=== PATIENT | female | born 1950 | race Caucasian/White ===

== ENCOUNTER → 2016-05-29 | Day surgery (SDC) | payer OTHER ==
--- NOTE | 2016-05-23 23:33 | CR ---
DATE OF CONSULTATION: 05/18/2016 REFERRING PHYSICIAN: Dr. Thrasher Thank you for asking me to see Ms. Charmaine Lunsford in consultation prior to her left knee arthroscopy scheduled tentatively for 05/29/[address] [facility] ([facility]). Ms. Lunsford is, as you know, a 65-year-old female, past medical history type 2 diabetes, hypertension, hyperlipidemia, who was been plagued by disabling left knee pain for nearly a year. Patient has had increased difficulties managing her weight and blood sugars related to her inactivity from her knee pain. Patient reports she has been in her usual state of health. She denies any fevers or chills, chest pain, or shortness of breath. Patient has type 2 diabetes. She is compliant with her insulin. Reports morning blood sugars in general are good as long as she is compliant with her diet and insulin. Patient has hypertension. Denies chest pain, palpitations, syncope, presyncope. Patient has gastroesophageal reflux disease (GERD) and is controlled on pantoprazole with little breakthrough dyspepsia. Patient has depression and is controlled on venlafaxine. Patient has obstructive sleep apnea (EULALIA) but has been noncompliant with her continuous positive airway pressure (CPAP). REVIEW OF SYSTEMS: Otherwise, negative. PAST MEDICAL HISTORY: 1. GERD. 2. Hyperlipidemia. 3. Hypertension. 4. Type 2 diabetes. 5. Obesity. 6. Hiatal hernia/GERD. 7. Oophorectomy secondary large ovarian cyst. 8. Osteoarthritis (OA)/degenerative joint disease (DJD) of the cervical (C) spine status post surgical intervention 12/2009. 9. Irritable bowel syndrome (IBS). 10. Sepsis 2007 secondary to pyelonephritis/nephrolithiasis. 11. EKG changes 12/2008 with negative stress echocardiogram and an adenosine thallium, followed by repeat stress test 03/2011 showing no inducible disease. 13. Urticaria 2008. 14. Colonic tubular adenoma at 10/2008, last colonoscopy 11/08/2011. Recommended a repeat in 5 years. DRUG ALLERGIES: Are BACTRIM and KEFLEX, both of which cause a rash. MEDICATIONS: Are: - alogliptin/metformin 12.07/999 mg one by mouth twice a day - amlodipine 5 mg by mouth nightly - baby aspirin 81 mg by mouth daily - atorvastatin 20 mg by mouth nightly - furosemide 20 mg two by mouth twice a day - Lantus 80 units subcutaneously twice a day - losartan 100 mg one by mouth every morning - NovoLog 40 units before supper, increased based on diet and activity - pantoprazole 40 mg by mouth twice a day - venlafaxine 75 mg by mouth daily - Ventolin two puffs four times a day as needed SOCIAL HISTORY: Happily . Quit smoking 2000. No alcohol. FAMILY HISTORY: Father had esophageal cancer in his 80s. Mother had Hodgkin's disease in her 30s. A brother hypertension. A sister diabetes and kidney disease. PHYSICAL EXAM: VITAL SIGNS: Weight 242 with a body mass index (BMI) of 39. Her oxygen saturation at rest is 99%. Blood pressure 170/92 with a repeat 158/80. Her heart rate is 77. HEENT EXAM: Head is normocephalic. She wears eyeglasses. Pupils are equal, reactive to light. Extraocular movements are intact. Tympanic membranes slightly dull; some bilateral cerumen but no occlusion. Tongue is midline. Posterior pharynx without inflammation. NECK: Is supple. No thyromegaly, jugular venous distention (JVD), or carotid bruits. RESPIRATORY: Clear to auscultation. Resonant to percussion. BREAST EXAM: Deferred. CARDIOVASCULAR: Regular rate, rhythm. Barely audible systolic murmur. ABDOMEN: Normoactive bowel sounds. Soft, nontender. No hepatosplenomegaly. EXTREMITIES: Trace pretibial edema. NEUROLOGIC: Alert and oriented. Cranial nerves II-XII are intact. LABORATORY DATA: EKG today, 05/18/2016, shows normal sinus rhythm, heart rate of 77, axis of 41 degrees. Normal MO, QRS, QTc interval. Some nonspecific T wave changes, which are unchanged compared to previous EKGs. No atrial or ventricular hypertrophy. Laboratory data done in my office 05/18/2016 shows a normal CBC. Med profile with a GFR of 56, a sugar of 113, a magnesium of 1.7, an A1c of 7.3, and normal ALT. TSH was normal 03/08/2016, as were lipids with a total cholesterol 135 and LDL of 70. IMPRESSION: Ms. Charmaine Lunsford, 65-year-old female with multiple cardiovascular risk factors, including type 2 diabetes, hypertension, hyperlipidemia, age, has no signs or symptoms indicative of cardiovascular ischemia and is at low risk for cardiovascular complications from the proposed surgical intervention, which can be further minimized by the followin. Type 2 diabetes. Patient will hold her oral hypoglycemics for 2 days prior to surgery. She will take 60 units instead of 80 units the evening prior to surgery and no insulin the morning of surgery. 2. Hypertension. Patient will hold diuretic morning of surgery. She will take her losartan as usual, as well as the amlodipine the evening prior to surgery. 3. Hyperlipidemia. She will stay on atorvastatin the evening prior to surgery. She will hold aspirin for 5 days prior to surgery. 4. Depression. Patient will take her venlafaxine morning of surgery. 5. Obstructive sleep apnea. Patient is noncompliant with her CPAP. Compliance is encouraged. 6. Gastroesophageal reflux disease Patient will take her pantoprazole the morning of surgery. 7. Osteoarthritis/degenerative joint disease. No nonsteroidal anti-inflammatory drugs (NSAIDs). I have approved the use of Tylenol. Thank you very much for this consultation. Please call with any questions or concerns.
[~2016-05-29] VITALS: Ht 170.2 cm; Wt 108.9 kg
[~2016-05-29] MED LIST: /LANS30GR; ADVIL; AMLO2.5T OR; AMLO5TAB2 PO; ASPI81TA31 OR; ATOR1TAB21 PO; CHLOROPROCAINE 2 % INJ PRES.FREE 20 ML VIAL (J2400) As Ordered ONE; CIPR500T19; CLINDAMYCIN 600 MG in APPROPRIATE DILUENT 1 EA IV ONE; CLOT1CRE71 TOP; COLA100C2 OR; FLAG500T; FURO20TA2; FURO20TA2 PO; GLUC1000; HCTZ; HYDR25TA6; HYDR25TA6 OR; IBUP600T OR; INSUH10VL SC; INSULADS INJ; INSULANT; K-LO20PO; KOMBIGLYZE; LEVA500T; LIDOCAINE 2% INJ 100 MG/5 ML SDV (FOR ANES.) As Ordered ONE; LIPI20TA OR; LOSA100T36 PO; LR 1,000 ML IV SCH; MAGN250T OR; MAVI4TAB; METO10TA2; METO25TA2; METO5TAB2; METOCLOPRAMIDE INJ 10MG/2ML VIAL (J2765) IV PRN; MIDAZOLAM INJ 2 MG/2 ML VIAL (J2250) As Ordered ONE; MILKSUS OR; MIRALEX OR; MORPHINE 4 MG/ML 1ML SYRINGE IV PRN; NORCO, ANEXSIA 5/325MG TABLET (HYDROcodone/ACETAMINOPHEN) PO PRN; ONDANSETRON 4MG/2ML VIAL (J2405) IV PRN; PAIN; PANT40TA2 PO; PERC5TAB8 OR; PERC7.5T8 OR; PREG50CA OR; PREV30TA; PRIN10TA; PROPOFOL 500 MG/50 ML VIAL As Ordered ONE; ROPIvacaine 0.5% 30 ML INJECTION (J2795) As Ordered ONE; ROPIvacaine 0.5% 30 ML INJECTION (J2795) XX ONE; ROSI2TA; ROSI4TA; SLOWTAB OR; TOPROL XL; TRIAMCINOLONE ACETONIDE SUSP 40 MG/ML VIAL (J3301) As Ordered ONE; VENL1TAB35 PO; VENL75TA2; ZOCO40TA; ZOCO80TA; [UNRECOGNIZED DRUG - OTHER]; [UNRECOGNIZED DRUG - OTHER]; fentaNYL 100 MCG/2 ML INJECTION (J3010) As Ordered ONE; fentaNYL 100 MCG/2 ML INJECTION (J3010) IV PRN; levemir SC
[2016-05-29 16:10] VITALS: BP 166/79
--- NOTE | 2016-05-29 17:53 | RO ---
DATE OF PROCEDURE: 05/29/2016 PREPROCEDURE DIAGNOSIS: Left knee lateral meniscus tear with degenerative arthritis. POSTPROCEDURE DIAGNOSIS: Left knee lateral meniscus tear with degenerative arthritis. PROCEDURES: 1. Left knee partial lateral meniscectomy. 2. Left knee chondroplasty of patella. 3. Left knee chondroplasty of the medial femoral condyle. SURGEON: Norberto Thrasher MD ELECTRONICS LEAD: ANESTHESIA: Spinal. COMPLICATIONS: None. ESTIMATED BLOOD LOSS: SPECIMENS: FINDINGS: She had extensive grade 3 chondromalacia of all three compartments of her knee, but there was extensively torn lateral meniscus. The medial meniscus was relatively well maintained. Anterior cruciate ligament (ACL) and posterior cruciate ligament (PCL) were intact. There was a significant amount of synovitis, especially in the suprapatellar pouch and in the anterior compartment. DESCRIPTION OF PROCEDURE: After antibiotics were given intravenously preoperatively and a successful spinal anesthetic was induced, tourniquet was placed on the left upper thigh and not inflated. The left lower extremity was then prepped and draped in the usual sterile fashion. Then, the leg was elevated. Then, after appropriate time-out, the tourniquet was inflated. Insufflation portal was established superomedially. Scope was introduced anterolaterally, and working port was anteromedial, and introduced the arthroscope to explore the joint. Findings showed that there was extensive chondromalacia of the patella and the trochlea, the lateral tibia and lateral femoral condyles, as well as the medial tibial and medial femoral condyles. ACL and PCL were intact. The lateral meniscus was extensively torn. The medial meniscus was not. I debrided the torn portion of the lateral meniscus with a 4.0 curved shaver back to good stable rim, and I did as much of a chondroplasty of the lateral femoral condyle as possible to help smooth off the loose pieces of articular cartilage that had were fragmenting. There was extensive amount of anterior interval synovitis and infrapatellar plica, which was excised. A photograph was taken of the ACL. In the medial compartment, there was extensive chondromalacia of the medial femoral condyle with some loose pieces of articular cartilage, which was debrided with a chondroplasty with a 4.0 shaver, trying to smooth off as most of the fragmenting pieces of cartilage as I could. Then, in the suprapatellar pouch, a patellar chondroplasty was performed with the shaver, as well, and some of the synovitis was debrided, but I did not find any other arthroscopic retrievable pathology at this point, so I copiously irrigated out the joint and then instilled ropivacaine with 1 mL of Kenalog 40; and then, the arthroscopy was removed, and wounds were covered with Adaptic dry sterile bulky dressing, tourniquet was released, and then she was transferred to the recovery room in stable condition. There were no intraoperative complications.
== END ==
LOC: M SDC 10:49
PROVIDERS: ATTEND Orthopaedic Surgery
DX: M23.201 Derangement of unspecified lateral meniscus due to old tear or injury, left knee (principal); M17.12 Unilateral primary osteoarthritis, left knee; I12.9 Hypertensive chronic kidney disease with stage 1 through stage 4 chronic kidney disease, or unspecified chronic kidney disease; E11.22 Type 2 diabetes mellitus with diabetic chronic kidney disease; E78.5 Hyperlipidemia, unspecified; G47.33 Obstructive sleep apnea (adult) (pediatric); K21.9 Gastro-esophageal reflux disease without esophagitis; F32.9 Major depressive disorder, single episode, unspecified; K44.9 Diaphragmatic hernia without obstruction or gangrene; N18.9 Chronic kidney disease, unspecified; E66.9 Obesity, unspecified; Z88.1 Allergy status to other antibiotic agents; Z88.2 Allergy status to sulfonamides; Z87.891 Personal history of nicotine dependence; Z79.899 Other long term (current) drug therapy; Z79.82 Long term (current) use of aspirin; Z79.84 Long term (current) use of oral hypoglycemic drugs; Z79.4 Long term (current) use of insulin
CPT/HCPCS: 29875; 29881; J2250; J2400; J2795; J3010; J3301

== ENCOUNTER 2017-11-05 19:14 | Inpatient (IN) | payer MEDICARE, OTHER ==
[2017-11-05] MEDS: ACETAMINOPHEN 325 MG TAB PO (21:05)
[2017-11-05 21:58] LABS: BASO % 0.1 % (0.0-1.0); HEMATOCRIT 41.8 % (36.0-47.0); HEMOGLOBIN 13.7 g/dl (12.0-15.5); IMMATURE GRANULOCYTE % 0.5 % (0-3.0); LYMPH % 4.8 % (24.0-44.0); MEAN CORPUSCULAR HEMOGLOBIN 29.1 pg (27.0-33.0); MEAN CORPUSCULAR HGB CONC 32.8 g/dl (32.0-36.5); MEAN CORPUSCULAR VOLUME 88.7 fl (80.0-96.0); MONO # 0.9 10^3/uL (0.0-0.8); MONO % 4.2 % (0.0-5.0); NEUTROPHILS # 18.1 10^3/uL (1.8-7.7); NEUTROPHILS % 90.4 % (36.0-66.0); PLATELET COUNT, AUTOMATED 188 10^3/uL (150-450); RED BLOOD COUNT 4.71 10^6/uL (4.00-5.40); RED CELL DISTRIBUTION WIDTH 13.7 % (11.5-14.5); WHITE BLOOD COUNT 20.1 10^3/uL (4.0-10.0)
[2017-11-05 22:15] LABS: ERYTHROCYTE SEDIMENTATION RATE 10 mm/hr (0-30)
[2017-11-05 22:17] LABS: ALBUMIN 3.6 GM/DL (3.2-5.2); ALBUMIN/GLOBULIN RATIO 1.03 (1.00-1.93); ALKALINE PHOSPHATASE 63 U/L (45-117); ALT/SGPT 19 U/L (12-78); ANION GAP 9 MEQ/L (8-16); AST/SGOT 10 U/L (7-37); BILIRUBIN,DIRECT 0.2 MG/DL (0.0-0.2); BLOOD UREA NITROGEN 22 MG/DL (7-18); C REACTIVE PROTEIN QUANTITATIV 2.49 MG/DL (0.00-0.30); CALCIUM LEVEL 8.9 MG/DL (8.8-10.2); CARBON DIOXIDE LEVEL 28 MEQ/L (21-32); CHLORIDE LEVEL 104 MEQ/L (98-107); CREATININE FOR GFR 1.38 MG/DL (0.55-1.30); GLOMERULAR FILTRATION RATE 40.8 (>45); GLUCOSE, FASTING 120 MG/DL (70-100); POTASSIUM SERUM 3.8 MEQ/L (3.5-5.1); SODIUM LEVEL 141 MEQ/L (136-145); TOTAL PROTEIN 7.1 GM/DL (6.4-8.2)
[2017-11-05] MEDS: NS 1,000 ML IV (22:30)
[2017-11-05] MEDS: CLINDAMYCIN 600 MG in APPROPRIATE DILUENT 1 EA IV (23:34)
[2017-11-06] MEDS: NS 500 ML IV (02:28)
[2017-11-06] MEDS ORDERED: PANTOPRAZOLE 40MG TAB (PROTONIX) PO (02:30)
[2017-11-06] MEDS ORDERED: DEXTROSE 50% 50 ML SYRINGE IV (02:30)
[2017-11-06] MEDS ORDERED: GLUCOSE 4 GM CHEW TABLET PO (02:30)
[2017-11-06] MEDS ORDERED: GLUCAGON FOR INJ 1 MG VIAL (J1610) SC (02:30)
[2017-11-06] MEDS: AMPICILLIN SOD/SULBACTAM SOD 3 GM in D5W MINI-BAG PLUS 100 ML IV ×4 (03:59→21:16)
[2017-11-06] MEDS: ATORVASTATIN 20 MG TAB PO ×2 (03:59→21:15)
[2017-11-06 05:48] LABS: HEMATOCRIT 36.3 % (36.0-47.0); HEMOGLOBIN 11.9 g/dl (12.0-15.5); MEAN CORPUSCULAR HEMOGLOBIN 29.3 pg (27.0-33.0); MEAN CORPUSCULAR HGB CONC 32.8 g/dl (32.0-36.5); MEAN CORPUSCULAR VOLUME 89.4 fl (80.0-96.0); PLATELET COUNT, AUTOMATED 166 10^3/uL (150-450); RED BLOOD COUNT 4.06 10^6/uL (4.00-5.40); RED CELL DISTRIBUTION WIDTH 13.8 % (11.5-14.5)
[2017-11-06 06:05] LABS: ANION GAP 8 MEQ/L (8-16); BLOOD UREA NITROGEN 21 MG/DL (7-18); CALCIUM LEVEL 7.8 MG/DL (8.8-10.2); CARBON DIOXIDE LEVEL 26 MEQ/L (21-32); CHLORIDE LEVEL 107 MEQ/L (98-107); CREATININE FOR GFR 1.22 MG/DL (0.55-1.30); GLOMERULAR FILTRATION RATE 47.1 (>45); GLUCOSE, FASTING 258 MG/DL (70-100); POTASSIUM SERUM 3.7 MEQ/L (3.5-5.1); SODIUM LEVEL 141 MEQ/L (136-145)
[2017-11-06] MEDS: buPROPion **XL** TABLET 150MG (WELLBUTRIN XL) PO (08:52)
[2017-11-06] MEDS: HumaLOG INSULIN (NovoLOG) PER UNIT SC ×4 (08:52→21:16)
[2017-11-06] MEDS: SPIRONOLACTONE 25 MG TAB PO (08:52)
[2017-11-06] MEDS: ESCITALOPRAM OXALATE 10 MG TAB (LEXAPRO) PO (08:52)
[2017-11-06] MEDS: ENOXAPARIN 40 MG/0.4 ML SYRINGE (J1650) SC (08:53)
[2017-11-06] MEDS: FUROSEMIDE 40 MG TAB PO ×2 (08:53→16:42)
[2017-11-06] MEDS: LOSARTAN 50 MG TAB PO (08:55)
[2017-11-06 12:27] LABS: BEDSIDE GLUCOSE 234 MG/DL (80-115)
[2017-11-06 17:36] LABS: BEDSIDE GLUCOSE 184 MG/DL (80-115)
[2017-11-07] MEDS: AMPICILLIN SOD/SULBACTAM SOD 3 GM in D5W MINI-BAG PLUS 100 ML IV ×4 (04:29→21:39)
[2017-11-07] MEDS: ACETAMINOPHEN TAB 650MG DOSE (2X325MG) PO ×2 (05:24→20:38)
[2017-11-07 06:56] LABS: HEMATOCRIT 37.3 % (36.0-47.0); HEMOGLOBIN 12.2 g/dl (12.0-15.5); MEAN CORPUSCULAR HEMOGLOBIN 28.5 pg (27.0-33.0); MEAN CORPUSCULAR HGB CONC 32.7 g/dl (32.0-36.5); MEAN CORPUSCULAR VOLUME 87.1 fl (80.0-96.0); PLATELET COUNT, AUTOMATED 186 10^3/uL (150-450); RED BLOOD COUNT 4.28 10^6/uL (4.00-5.40); RED CELL DISTRIBUTION WIDTH 13.6 % (11.5-14.5); WHITE BLOOD COUNT 11.4 10^3/uL (4.0-10.0)
[2017-11-07 07:14] LABS: ANION GAP 7 MEQ/L (8-16); BLOOD UREA NITROGEN 16 MG/DL (7-18); CALCIUM LEVEL 8.4 MG/DL (8.8-10.2); CARBON DIOXIDE LEVEL 29 MEQ/L (21-32); CHLORIDE LEVEL 104 MEQ/L (98-107); CREATININE FOR GFR 1.09 MG/DL (0.55-1.30); GLOMERULAR FILTRATION RATE 53.6 (>45); GLUCOSE, FASTING 129 MG/DL (70-100); POTASSIUM SERUM 3.6 MEQ/L (3.5-5.1); SODIUM LEVEL 140 MEQ/L (136-145)
[2017-11-07] MEDS: HumaLOG INSULIN (NovoLOG) PER UNIT SC ×4 (07:43→20:27)
[2017-11-07 08:18] LABS: BEDSIDE GLUCOSE 242 MG/DL (80-115)
[2017-11-07] MEDS: SPIRONOLACTONE 25 MG TAB PO (08:32)
[2017-11-07] MEDS: buPROPion **XL** TABLET 150MG (WELLBUTRIN XL) PO (08:32)
[2017-11-07] MEDS: ESCITALOPRAM OXALATE 10 MG TAB (LEXAPRO) PO (08:32)
[2017-11-07] MEDS: ENOXAPARIN 40 MG/0.4 ML SYRINGE (J1650) SC (08:32)
[2017-11-07] MEDS: FUROSEMIDE 40 MG TAB PO ×2 (08:33→17:49)
[2017-11-07] MEDS: LOSARTAN 50 MG TAB PO (08:35)
[2017-11-07 11:46] LABS: BEDSIDE GLUCOSE 181 MG/DL (80-115)
[2017-11-07] MEDS: ATORVASTATIN 20 MG TAB PO (20:39)
[2017-11-07 22:03] LABS: BEDSIDE GLUCOSE 256 MG/DL (80-115)
[2017-11-07 22:04] LABS: BEDSIDE GLUCOSE 248 MG/DL (80-115)
[2017-11-08] MEDS: AMPICILLIN SOD/SULBACTAM SOD 3 GM in D5W MINI-BAG PLUS 100 ML IV ×2 (03:39→10:48)
[2017-11-08 08:21] LABS: BEDSIDE GLUCOSE 184 MG/DL (80-115)
[2017-11-08] MEDS: HumaLOG INSULIN (NovoLOG) PER UNIT SC ×2 (08:43→12:00)
[2017-11-08] MEDS: SPIRONOLACTONE 25 MG TAB PO (08:44)
[2017-11-08] MEDS: LOSARTAN 50 MG TAB PO (08:44)
[2017-11-08] MEDS: ESCITALOPRAM OXALATE 10 MG TAB (LEXAPRO) PO (08:44)
[2017-11-08] MEDS: buPROPion **XL** TABLET 150MG (WELLBUTRIN XL) PO (08:44)
[2017-11-08] MEDS: FUROSEMIDE 40 MG TAB PO (08:44)
[2017-11-08] MEDS: ENOXAPARIN 40 MG/0.4 ML SYRINGE (J1650) SC (08:45)
[2017-11-08] MEDS ORDERED: TOUJEO SOLOSTAR (PATIENT'S OWN MED) SQ (21:00)
== END 2017-11-08 12:40 | disposition home or self-care (01) | DRG 872 ==
LOC: M ED INP 11-06 02:28 → M MS5PR 11-06 03:40 → M ED 19:14
DX: A41.9 Sepsis, unspecified organism (principal); L03.116 Cellulitis of left lower limb; E11.9 Type 2 diabetes mellitus without complications; I10 Essential (primary) hypertension; E78.5 Hyperlipidemia, unspecified; M17.12 Unilateral primary osteoarthritis, left knee; F32.9 Major depressive disorder, single episode, unspecified; I87.8 Other specified disorders of veins; R26.89 Other abnormalities of gait and mobility; Z98.1 Arthrodesis status; Z90.49 Acquired absence of other specified parts of digestive tract; Z90.721 Acquired absence of ovaries, unilateral; Z79.4 Long term (current) use of insulin; Z79.899 Other long term (current) drug therapy; Z88.2 Allergy status to sulfonamides; Z88.1 Allergy status to other antibiotic agents

== ENCOUNTER → 2018-07-31 | Outpatient (REF) | payer MEDICARE ==
[~2018-07-31] MED LIST changes: +AMLO2.5T3 PO; -AMLO5TAB2 PO; +AMLO5TAB6 PO; +AUGM875T28 PO; +BUPR150T3 PO; +BUPR50TA PO; -CHLOROPROCAINE 2 % INJ PRES.FREE 20 ML VIAL (J2400) As Ordered ONE; +CICL8SOL3 EXT; -CLINDAMYCIN 600 MG in APPROPRIATE DILUENT 1 EA IV ONE; +FURO40TA2 PO; +HUMA100I3 SC; +LEXA1TAB PO; +LEXA1TAB2 PO; -LIDOCAINE 2% INJ 100 MG/5 ML SDV (FOR ANES.) As Ordered ONE; -LOSA100T36 PO; +LOSA100T50 PO; -LR 1,000 ML IV SCH; +METF10004 PO; -METOCLOPRAMIDE INJ 10MG/2ML VIAL (J2765) IV PRN; -MIDAZOLAM INJ 2 MG/2 ML VIAL (J2250) As Ordered ONE; -MORPHINE 4 MG/ML 1ML SYRINGE IV PRN; -NORCO, ANEXSIA 5/325MG TABLET (HYDROcodone/ACETAMINOPHEN) PO PRN; -ONDANSETRON 4MG/2ML VIAL (J2405) IV PRN; -PANT40TA2 PO; +PANT40TA3 PO; -PROPOFOL 500 MG/50 ML VIAL As Ordered ONE; -ROPIvacaine 0.5% 30 ML INJECTION (J2795) As Ordered ONE; -ROPIvacaine 0.5% 30 ML INJECTION (J2795) XX ONE; +SPIR-10 PO; +TOUJ300I2 SC; -TRIAMCINOLONE ACETONIDE SUSP 40 MG/ML VIAL (J3301) As Ordered ONE; -fentaNYL 100 MCG/2 ML INJECTION (J3010) As Ordered ONE; -fentaNYL 100 MCG/2 ML INJECTION (J3010) IV PRN
[2018-07-31 19:03] LABS: C REACTIVE PROTEIN QUANTITATIV 0.69 MG/DL (0.00-0.30); RHEUMATOID FACTOR QUANT < 10.0 IU/ML (<15.0); URIC ACID 4.5 MG/DL (2.6-6.0)
[2018-07-31 19:20] LABS: BASO % 0.2 % (0.0-1.0); EOS # 0.2 10^3/uL (0.0-0.50); EOS % 1.6 % (0.0-3.0); HEMATOCRIT 41.9 % (36.0-47.0); HEMOGLOBIN 13.4 g/dl (12.0-15.5); LYMPH # 2.5 10^3/uL (1.5-4.5); LYMPH % 25.9 % (24.0-44.0); MEAN CORPUSCULAR HEMOGLOBIN 28.6 pg (27.0-33.0); MEAN CORPUSCULAR VOLUME 89.5 fl (80.0-96.0); MONO # 0.7 10^3/uL (0.0-0.8); MONO % 7.3 % (0.0-5.0); NEUTROPHILS # 6.3 10^3/uL (1.8-7.7); NEUTROPHILS % 64.6 % (36.0-66.0); PLATELET COUNT, AUTOMATED 246 10^3/uL (150-450); RED BLOOD COUNT 4.68 10^6/uL (4.00-5.40); WHITE BLOOD COUNT 9.7 10^3/uL (4.0-10.0)
[2018-07-31 21:12] LABS: ERYTHROCYTE SEDIMENTATION RATE 11 mm/hr (0-30)
[2018-08-03 00:06] LABS: ANTINUCLEAR ANTIBODIES DIRECT Negative (Negative); Lyme Disease IgG/IgM Antibodie <0.91 ISR (0.00-0.90); Lyme Disease IgM Ab Quantitati <0.80 index (0.00-0.79)
== END ==
LOC: M LABDRAW1 14:00
PROVIDERS: ATTEND Physician Assistant Surgical
DX: M17.11 Unilateral primary osteoarthritis, right knee (principal)

== ENCOUNTER 2018-11-04 09:05 | Inpatient (IN) | payer MEDICARE ==
--- NOTE | 2018-10-29 00:08 | CR ---
DATE OF CONSULTATION: 10/28/2018 Preoperative consultation on Charmaine Lunsford for left total knee arthroplasty (TKA) scheduled 11/04/2018 at [facility] with Dr. Norberto Thrasher. Dear Dr. Thrasher, Thank you for asking me to see Ms. Charmaine Lunsford in consultation. She is, as you know, a 67-year-old female with past medical history of type 2 diabetes, hypertension, hyperlipidemia obstructive sleep apnea (EULALIA), who reports progressive disability from bilateral knee pain for several years, who reports that she is in her usual state of health. The patient's diabetes has been poorly controlled. She has been noncompliant with diet and checking her blood sugars, she ran out of Toujeo for approximately 1 week but is back on. She is unsure what her blood sugars are running. She is pleased that she is down 5 pounds. The patient has EULALIA. She has been noncompliant with continuous positive airway pressure (CPAP), reports a piece broke on her machine about 2 months ago, and she did not pursue replacing it. The patient reports inactivity related to her bilateral knee pain. She denies any chest pain, palpitations, syncope or presyncope. She denies any fevers or chills or change in bowels. The patient has gastroesophageal reflux disease (GERD) and her dyspepsia is well controlled. The patient has edema but reports furosemide has maintained it better than usual. The patient has had multiple stressors with her being ill, feels she is doing well. She is on Lexapro but always concerned about her REVIEW OF SYSTEMS: Otherwise negative. PAST MEDICAL HISTORY: 1. Hyperlipidemia. 2. Hypertension. 3. Type 2 diabetes. 4. Obesity. 5. Hiatal hernia, GERD. 6. Osteoarthritis (OA), degenerative joint disease (DJD) of the cervical spine (C-spine), status post surgical intervention 12/10 and OA of bilateral knees with multiple injections and arthroscopy. 7. Irritable bowel syndrome. 8. Abnormal EKG 12/09 with negative stress echo, negative adenosine thallium 2008, last stress test 03/12 showed no inducible disease. 9. Urticaria 2008. 10. Left lower extremity cellulitis October 2017, complicated by sepsis. 11. EULALIA, noncompliant with continuous positive airway pressure (CPAP) therapy. 12. Oophorectomy secondary to large ovarian cyst. 13. Colonic tubular adenoma 11/08. 14. Repeat colonoscopy 11/08/2011 was normal. MEDICATIONS: She is on amlodipine 2.5 mg nightly, baby aspirin daily, atorvastatin 20 mg daily, Lexapro 10 mg daily, furosemide 40 mg two times a day, Humalog 32 units before supper, losartan 100 mg daily, magnesium oxide 250 mg two pills twice a day, metformin 1000 mg twice a day, pantoprazole 40 mg daily, spironolactone 25 mg daily, Toujeo 140 units every night. DRUG ALLERGIES: BACTRIM causes a rash. KEFLEX causes a rash. 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 Quit smoking 2000 after 28 years, one to two pack a day. Alcohol: Stopped in 1995. FAMILY HISTORY: Father had esophageal cancer, mother had Hodgkin's disease, a brother hypertension, a sister diabetes and kidney disease. PHYSICAL EXAMINATION: Obese female, in no acute distress. Vital signs: Weight 238 with a body mass index (BMI) of 38, oxygen saturation (O2 sat) is 97%, blood pressure 169/80, recheck 148/70 with a heart rate of 82. HEENT Examination: Head is normocephalic. Neck is supple. Pupils equal, reactive to light. Extraocular movements are intact. Conjunctivae not injected. Sclerae anicteric. Vision grossly normal. Ears: Normal tympanic membranes. Tongue is midline. Posterior pharynx without inflammation. Neck is supple. No thyromegaly, jugular venous distention (JVD) or carotid bruits. Lungs are clear to auscultation, resonant to percussion. Breasts: Exam deferred. Cardiovascular: Regular rate and rhythm. Abdomen: Obese, soft, nontender. Gynecologic: Deferred. Extremities: Venous stasis dermatitis left greater than right lower extremity with trace edema. Dermatologic: Multiple seborrheic keratosis. Neurologic: Alert and oriented. Cranial nerves II-XII are intact. LABORATORY DATA: 10/21/2018 - med profile significant for a sugar of 333 with a GFR of 44. Liver panel normal. Normal CBC, sed rate was 12. Patient's chest x-ray shows no acute cardiopulmonary disease. Her EKG shows normal sinus rhythm with a rate of 80 and axis of 43, normal CO, QRS, QTc, T-wave inversions flattening inferior and lateral, unchanged compared to previous EKGs. IMPRESSION: Ms. Charmaine Lunsford is a 67-year-old female with multiple cardiovascular risk factors including hypertension, type 2 diabetes, hyperlipidemia, age, who has no signs or symptoms indicative of cardiovascular ischemia. The patient is felt to be at low risk for cardiovascular complications from the proposed surgical intervention, which can be further minimized by the following: PROBLEM #1: Diabetes 2. The patient will take 100 units of Toujeo the evening prior to surgery, hold metformin for 2 days prior to surgical intervention. Compliance with diet and fingerstick blood sugars strongly recommended. I will see the patient back about 1 week after surgical intervention. PROBLEM #2: Hypertension. She will hold her diuretics the morning of surgery. I will have her take two amlodipine the evening prior to surgery. PROBLEM #3: Hyperlipidemia. She will take her statin as usual the evening prior to surgery. I will have her hold aspirin prior to surgery. PROBLEM #4: EULALIA noncompliant with CPAP. Supplies are ordered. She has not used it for 2 months. She will get back on track and bring it to the surgery to use perioperatively. PROBLEM #5: GERD. She will take her pantoprazole as usual. PROBLEM #6: Edema. Conservative advice including leg elevation, compression stockings encouraged. She will hold her diuretics the morning of surgery. Thank you very much for this consultation. Please call with questions or concerns.
--- NOTE | 2018-10-31 15:26 | HPE ---
DATE OF ANTICIPATED ADMISSION: 11/04/2018 ATTENDING PHYSICIAN: Dr. John Paul Thrasher CHIEF COMPLAINT: Left knee pain and stiffness. HISTORY: This is a pleasant, 67-year-old female patient with progressively worsening left knee pain and stiffness that has failed to improve with conservative treatment. She has been consented for left total knee arthroplasty by Dr. Thrasher. ALLERGIES: BACTRIM, KEFLEX, PLASTIC TAPE. CURRENT MEDICATIONS: - amlodipine 2.1 mg one by mouth at bedtime - baby aspirin one by mouth daily - atorvastatin 20 mg one by mouth daily - Lexapro 10 mg one by mouth daily - furosemide 40 mg one by mouth twice a day - Humalog 32 units before supper - losartan 100 mg one by mouth daily - magnesium oxide 250 mg two by mouth twice a day - metformin 1000 mg by mouth twice a day - pantoprazole 40 mg one by mouth daily - spironolactone 25 mg one by mouth daily - Toujeo 140 units nightly PAST MEDICAL HISTORY: 1. Hyperlipidemia. 2. Hypertension. 3. Type 2 diabetes. 4. Obesity. 5. Hiatal hernia. 6. Gastroesophageal reflux disease (GERD). 7. Osteoarthritis. 8. Degenerative joint disease of the cervical spine. 9. Irritable bowel syndrome 10. Abnormal EKG with negative stress echo. 11. Urticaria. 12. Sleep apnea. PAST SURGICAL HISTORY: 1. Oophorectomy. 2. Colonic tubular adenoma removal. SOCIAL HISTORY: Nonsmoker. Does not use alcohol. FAMILY HISTORY: Father: Esophageal cancer. Mother: Hodgkin's disease. REVIEW OF SYSTEMS: Denies fever, chills, chest pain, shortness breath, nausea, vomiting, diarrhea. Denies recent upper respiratory or urinary tract infection/symptoms. PHYSICAL EXAMINATION: Height 5, 6. Weight 234.6. Temperature 98.4, blood pressure 140/62, respirations 15, pulse 80. This is a normocephalic, atraumatic, adult female. Neck is supple and nontender with no lymphadenopathy or jugular venous distention (JVD). S1, S2 auscultated with no murmurs, rubs, or gallops. Lungs: Clear to auscultation bilaterally with no wheezes, rales, or rhonchi. Abdomen: Soft, nontender. The left knee showed intact range of motion. Overlying skin was intact. There is no obvious deformity. The left lower extremity is well perfused. LABS: White count 7.5, red count 4.44, hemoglobin 12.9, hematocrit 40.2. ESR 12. BUN 27, creatinine 44. PT 13.1, INR 1.09. Chest x-ray: No acute cardiopulmonary disease. EKG: Sinus rhythm with ST deviation and T-wave abnormality. Medical optimization per Dr. Hendrix was reviewed and reconciled per today's chart. IMPRESSION: Left knee symptomatic osteoarthritis. PLAN: Consented for left total knee arthroplasty with Dr. Thrasher.
[~2018-11-04] VITALS: Ht 167.6 cm; Wt 110.6 kg
[2018-11-04] VITALS (7 sets, daily range): BP systolic 147–166; BP diastolic 77–92
[~2018-11-04 09:05] MED LIST changes: +ACETAMINOPHEN 500 MG TAB PO ONE; +LR 1,000 ML IV ONE; +MAGN250T7 PO; +TYLE650T35 PO; +VANCOMYCIN HCL 1,000 MG, VIAL MATE ADAPTER 1 EACH in D5W 250 ML IV ONE
[2018-11-04] MEDS ORDERED: ACETAMINOPHEN 500 MG TAB PO ONE (10:00)
[2018-11-04] MEDS ORDERED: MIDAZOLAM INJ 2 MG/2 ML VIAL (J2250) As Ordered ONE ×2 (10:49→13:12)
[2018-11-04] MEDS ORDERED: fentaNYL 100 MCG/2 ML INJECTION (J3010) As Ordered ONE ×2 (10:49→13:12)
[2018-11-04] MEDS ORDERED: EPINEPHrine INJ 1 MG/ML 1ML AMP ONE (11:56)
[2018-11-04] MEDS ORDERED: LIDOCAINE 1% MDV 20ML VIAL ONE (11:56)
[2018-11-04] MEDS ORDERED: ROPIvacaine 0.5% 30 ML INJECTION (J2795 PER 1MG) ONE (11:56)
[2018-11-04] MEDS ORDERED: fentaNYL 100 MCG/2 ML INJECTION (J3010) IV PRN ×2 (12:00→15:30)
[2018-11-04] MEDS ORDERED: MIDAZOLAM INJ 2 MG/2 ML VIAL (J2250) IV PRN (12:00)
[2018-11-04] MEDS ORDERED: BUPIVACAINE/DEXTROSE 0.75% 2 ML AMP As Ordered ONE (12:27)
[2018-11-04] MEDS ORDERED: BUPIVACAINE HCL 0.25% 10 ML VIAL As Ordered ONE (12:34)
[2018-11-04] MEDS ORDERED: TRANEXAMIC ACID 100 MG/ML 10ML VIAL As Ordered ONE (12:34)
[2018-11-04] MEDS ORDERED: ceFAZolin 1GM INJ (J0690 PER 500MG) As Ordered ONE (12:34)
[2018-11-04] MEDS ORDERED: EPINEPHrine INJ 1 MG/ML 1ML AMP As Ordered ONE (12:34)
[2018-11-04] MEDS ORDERED: BUPIVACAINE LIPOSOME/PF 1.3% 20ML VIAL (13.3MG/ML)(EXPAREL)(C9290 PER1MG) As Ordered ONE (12:35)
[2018-11-04] MEDS ORDERED: BACITRACIN PWD 50,000 UNITS VIAL As Ordered ONE (13:01)
[2018-11-04] MEDS ORDERED: LIDOCAINE 2% INJ 100 MG/5 ML SDV (FOR ANES.) As Ordered ONE (13:12)
[2018-11-04] MEDS ORDERED: PROPOFOL 200 MG/20 ML VIAL As Ordered ONE (13:12)
[2018-11-04] MEDS ORDERED: ACETAMINOPHEN 1000MG 100ML IV BTL (OFIRMEV) (J0131 PER 10MG) As Ordered ONE (13:15)
[2018-11-04] MEDS ORDERED: ePHEDrine SULFATE 25 MG/5 ML(5MG/ML) SYRINGE As Ordered ONE (13:25)
[2018-11-04] MEDS ORDERED: ONDANSETRON 4MG/2ML VIAL (J2405) IV PRN (15:30)
[2018-11-04] MEDS ORDERED: FLEET ENEMA PR PRN (15:30)
[2018-11-04] MEDS ORDERED: ACETAMINOPHEN TAB 650MG DOSE (2X325MG) PO PRN (15:30)
[2018-11-04] MEDS ORDERED: PERCOCET 5MG/325MG TAB PO PRN (15:30)
[2018-11-04] MEDS ORDERED: LR 1,000 ML IV SCH (15:30)
[2018-11-04] MEDS ORDERED: HYDROMORPHONE HCL 0.5 MG/ 0.5 ML SYRINGE (J1170 PER 1) IV PRN ×2 (15:30)
[2018-11-04] MEDS: LR 1,000 ML IV SCH (15:30)
[2018-11-04] MEDS ORDERED: METOCLOPRAMIDE INJ 10MG/2ML VIAL (J2765) IV PRN (15:30)
--- NOTE | 2018-11-04 16:27 | REP ---
PORTABLE LEFT KNEE, TWO VIEWS: HISTORY: Knee replacement. The patient is status-post left total knee replacement. There is no acute fracture or dislocation. Subcutaneous air and surgical kera are present in the overlying soft tissue. IMPRESSION:The patient is status-post left total knee replacement. There is anatomic alignment. Electronically Signed by Jaime Milton MD 11/04/2018 04:35 P
[2018-11-04] MEDS: PERCOCET 5MG/325MG TAB PO PRN ×2 (16:43→21:02)
[2018-11-04] MEDS: FUROSEMIDE 40 MG TAB PO SCH (17:00)
[2018-11-04 17:09] LABS: HEP C VIRUS AB INDEX SOURCE PT 0.1 INDEX (0.0-0.8); HEPATITIS B SURFACE ANTIGEN NEGATIVE (NEGATIVE)
[2018-11-04 17:22] LABS: HIV SCREEN CENTAUR SOURCE NEGATIVE (NEGATIVE)
[2018-11-04] MEDS ORDERED: GLUCAGON FOR INJ 1 MG VIAL (J1610) SC PRN (18:45)
[2018-11-04] MEDS ORDERED: DEXTROSE 50% 50 ML SYRINGE IV PRN (18:45)
[2018-11-04] MEDS ORDERED: GLUCOSE 4 GM CHEW TABLET PO PRN (18:45)
[2018-11-04] MEDS: ESCITALOPRAM OXALATE 10 MG TAB (LEXAPRO) PO SCH (18:58)
--- NOTE | 2018-11-04 19:04 | CR.PDOC ---
General Date of Consultation: Nov 04, 2018 Consultation REASON FOR CONSULTATION/CHIEF COMPLAINT: Management of comorbidities HISTORY OF PRESENT ILLNESS: 67f with dm, htn, nayla and gerd who presents for an elective total knee replacement. ALLERGIES: Please see below. HOME MEDICATIONS: Please see below. REVIEW OF SYSTEMS: a full ros was performed significant only for joint pain and heartburn. PHYSICAL EXAMINATION: VITAL SIGNS: Please see below. GENERAL APPEARANCE: obese, alert, in no apparent distress HEENT: normocephalic, atraumatic, PERRL, EOMI, mucosa pink and moist RESPIRATORY: clear to auscultation bilaterally with good air movement CARDIOVASCULAR: s1 s2 RRR no MRG ABDOMEN: soft non tender, nondistended, nl bowel sounds EXTREMITIES: trace edema. NEUROLOGICAL: no focal deficits PSYCHIATRIC: nl mood and affect, A&Ox3 LABORATORY DATA: Please see below. ASSESSMENT/PLAN: 67f with dm, nayla, htn s/p total knee replacement DM diabetic diet hold metformin while inpatient monitor fingersticks sliding scale correction will convert her 30 units of pre-supper lispro to 9u before each meal while inpatient will convert her 120 units of nightly toujeo to 90 units levemir while inpatient may continue home regimen on discharge htn continue lasix and spironolactone tomorrow continue norvasc hld continue statin GERD continue protonix NAYLA continue nocturnal cpap Vital Signs/I&O Vital Signs Date Time Temp Pulse Resp B/P (MAP) Pulse Ox O2 Delivery O2 Flow Rate FiO2 11/04/18 18:41 98.0 82 19 164/80 (108) 98 11/04/18 12:55 4 Laboratory Data Labs 24H Laboratory Tests 2 11/04/18 12:53: Bedside Glucose (Misc Panel) 113 11/04/18 15:45: Hepatitis B Surface Antigen NEGATIVE, Hepatitis C Antibody Index 0.1, HIV Antigen/Antibody Combo Qual NEGATIVEA 11/04/18 15:46: Bedside Glucose (Misc Panel) 81 CBC/BMP Laboratory Tests 11/04/18 09:24 Allergies Coded Allergies: cephalexin (Verified Allergy, Intermediate, rash, 11/04/18) sulfamethoxazole (Verified Allergy, Intermediate, rash, 11/04/18) trimethoprim (Verified Allergy, Intermediate, rash, 11/04/18) Home Medications Scheduled Acetaminophen (Tylenol Arthritis) 650 Mg Tablet.er, 1,300 MG PO Q8H, (Reported) Amlodipine Besylate (Amlodipine Besylate) 2.5 Mg Tab, 2.5 MG PO QHS, (Reported) Atorvastatin Calcium (Atorvastatin Calcium) 20 Mg Tab, 20 MG PO QHS, (Reported) Ciclopirox (Ciclopirox) 8 % Pascale, 1 DOSE EXT DAILY, (Reported) USES ON LEFT BIG TOE FOR ONE WEEK; RUBS OFF AT END OF WEEK AND RESTARTS Escitalopram Oxalate (Lexapro) 10 Mg Tab, 10 MG PO DAILY, (Reported) Furosemide (Furosemide) 40 Mg Tab, 40 MG PO BID, (Reported) Insulin Glargine,Hum.rec.anlog (Toujeo Max Solostar) 300 Unit/Ml Inj, 136 UNIT SC QHS, (Reported) Insulin Lispro (Humalog) 100 Unit/Ml Inj, 27 UNITS SC ACS, (Reported) Losartan Potassium (Losartan Potassium) 100 Mg Tab, 100 MG PO DAILY, (Reported) Magnesium Oxide (Magnesium) 250 Mg Tablet, 500 MG PO BID, (Reported) Metformin HCl (Metformin HCl) 1,000 Mg Tab, 1,000 MG PO BID, (Reported) Spironolactone (Spironolactone) 25 Mg Tab, 25 MG PO DAILY, (Reported) Scheduled PRN Pantoprazole Sodium (Pantoprazole Sodium) 40 Mg Tab, 40 MG PO DAILY PRN for ACID REFLUX, (Reported) MEERA RAMIREZ MD Nov 04, 2018 19:04
[2018-11-04] MEDS: ATORVASTATIN 20 MG TAB PO SCH (20:16)
[2018-11-04] MEDS: LEVEMIR (INSULIN DETEMIR) 1 UNITS/0.01ML SC SCH (20:16)
[2018-11-04] MEDS: LOSARTAN 50 MG TAB PO SCH (20:16)
[2018-11-04] MEDS ORDERED: FUROSEMIDE 40 MG TAB PO SCH (21:00)
[2018-11-05] MEDS: VANCOMYCIN HCL 1,000 MG, VIAL MATE ADAPTER 1 EACH in D5W 250 ML IV SCH ×2 (00:22→12:08)
[2018-11-05 02:00] VITALS: BP 164/80
[2018-11-05] MEDS: PERCOCET 5MG/325MG TAB PO PRN ×4 (02:29→21:33)
[2018-11-05] MEDS: LR 1,000 ML IV SCH (04:00)
[2018-11-05 06:00] VITALS: BP 164/81
[2018-11-05 06:56] LABS: HEMATOCRIT 38.3 % (36.0-47.0); HEMOGLOBIN 12.3 g/dl (12.0-15.5); MEAN CORPUSCULAR HEMOGLOBIN 28.9 pg (27.0-33.0); MEAN CORPUSCULAR HGB CONC 32.1 g/dl (32.0-36.5); MEAN CORPUSCULAR VOLUME 89.9 fl (80.0-96.0); PLATELET COUNT, AUTOMATED 172 10^3/uL (150-450); RED BLOOD COUNT 4.26 10^6/uL (4.00-5.40); WHITE BLOOD COUNT 12.1 10^3/uL (4.0-10.0)
[2018-11-05 07:23] LABS: CALCIUM LEVEL 8.2 MG/DL (8.8-10.2); GLOMERULAR FILTRATION RATE 59.1 (>45); POTASSIUM SERUM 4.4 MEQ/L (3.5-5.1)
[2018-11-05] MEDS: HumaLOG INSULIN (NovoLOG) PER UNIT SC SCH ×6 (07:30→17:20)
[2018-11-05] MEDS ORDERED: XARE10TA PO (08:02)
[2018-11-05] MEDS ORDERED: PERC5TAB12 PO (08:02)
[2018-11-05] MEDS: SPIRONOLACTONE 25 MG TAB PO SCH (09:04)
[2018-11-05] MEDS: LOSARTAN 50 MG TAB PO SCH (09:04)
[2018-11-05] MEDS: FUROSEMIDE 40 MG TAB PO SCH ×2 (09:04→17:21)
[2018-11-05] MEDS: ESCITALOPRAM OXALATE 10 MG TAB (LEXAPRO) PO SCH (09:05)
[2018-11-05] MEDS: MIRALAX *UNIT DOSE* 17GM PACKET PO SCH (09:05)
[2018-11-05] MEDS: MOM 30ML SUSPENSION UDC PO SCH (09:05)
[2018-11-05] MEDS: PANTOPRAZOLE 40MG TAB (PROTONIX) PO SCH (09:05)
--- NOTE | 2018-11-05 09:10 | RO ---
DATE OF PROCEDURE: 11/04/2018 PREPROCEDURE DIAGNOSIS: Left knee valgus degenerative arthritis. POSTPROCEDURE DIAGNOSIS: Left knee valgus degenerative arthritis. PROCEDURE: Left total knee arthroplasty using a size 6 Attune cruciate-retaining femoral component, size 5 tibial tray, 5 mm rotating platform, polyethylene insert, and a 35 mm polyethylene button. All components were cemented, made by [employer]. SURGEON: Dr. Matt Thrasher AGRICULTURAL INSPECTOR: Dave Evelin Larios ANESTHESIA: Spinal with left femoral nerve block. COMPLICATIONS: None. ESTIMATED BLOOD LOSS: 20 mL. SPECIMENS: Joint surface. DESCRIPTION OF PROCEDURE: Antibiotics were given intravenously preoperatively and successful left femoral nerve block and then spinal anesthetic was induced. Tourniquet was placed on the left upper thigh and not inflated. The left lower extremity was carefully prepped and draped in the usual sterile fashion and elevated, and then after appropriate time-out, the tourniquet was inflated to 250 mmHg for 72 minutes. A longitudinal incision was made for a medial parapatellar approach to the knee. Bovie cautery was used to coagulate the crossing vessels. Limited subperiosteal dissection medially around the proximal and tibia was performed, but we also did subperiosteal dissection around the proximal lateral tibial plateau. Everted the patella, flexed the knee and debrided the anterior cruciate ligament (ACL). I placed the drill down the center of the femoral canal followed by the intramedullary mikel set at 9 mm resection level at 5 degree valgus for a left knee. Block was pinned into position. Distal femoral cut performed. AP sizing jig measured for a size 6, it was pinned into position, and then the anterior and posterior chamfer cuts performed. The notch plasty jig was then placed for the notch plasty and notch plasty performed. We then exposed the proximal tibia, used the extramedullary alignment jig to estimate being parallel to the mechanical axis. We referenced off both medial and laterally and it came out to about 2 mm lateral and 4 mm medially. We appeared to be parallel to the mechanical axis based on the extramedullary mikel and then we pinned the block into position. Secondary check with the extramedullary mikel once again confirmed that we appeared to be parallel to the mechanical axis. We then performed a proximal tibial osteotomy. The lamina slip cover cutter was placed medially and we performed a completion lateral meniscectomy, debridement of posterolateral osteophytes. We then placed the lamina slip cover cutter laterally and performed a completion medial meniscectomy and debridement of posteromedial osteophytes. Spacer blocks at 6 mm in flexion was a bit snug and it was very snug in extension, quite asymmetrically actually, so we felt at this point that since it was isolated extension tightness that we should take more distal femur and thus I did reapply the block using the batwing device, pinned the block into position, took an additional 2 mm off the distal femur, and then reapplied the 4-in-1 block, appropriately using the batwing and performed the chamfer cuts once again, and also placed the notch plasty device back on to perform the notch plasty. We then placed the spacer block back and 5 mm actually had good symmetry, both in flexion and extension with good medial and lateral stability. Thus, we felt that was the appropriate sized spacer to use. We then exposed the proximal tibia and sized for a number 5 tibial tray, which was pinned into position, followed by reamer and broach, and then the trial 5 mm was placed, followed by trial femur. Brought the knee into extension, everted the patella, performed the patellar osteotomy and sized for a 35 button. The lug holes were drilled, and then the trial was placed. Patellofemoral tracking was anatomic. We then drilled the lug holes for the femur, removed all the trial components, placed Exparel in the subperiosteal tissues around the distal femur and proximal tibia and then copiously pulsatile lavage irrigated out the knee joint as Ms. Evelin Larios, my human resources benefits assistant, mixed the cement on the back table. She was also critical to the success of this difficult surgery by helping with appropriate soft tissue manipulation, soft tissue retraction, helped to flex and extend the knee as needed so I could perform the operation smoothly, efficiently, and safely, as well as helped to close the wound, mixed the cement, and prepared the patient for surgery otherwise. We then cemented the tibial tray. Removed excess cement. Placed the polyethylene and cemented the femoral component, removed the excess cement, brought the knee out in extension, cemented the patellar button and held it with a clamp and then removed excess cement. Held the knee in extension and copiously irrigated out the knee joint as we were waiting for the cement to harden. We then placed Exparel in the knee and began closing the arthrotomy with a combination of #1 interrupted PDS sutures and a #1 double-arm PDS Stratafix. The tourniquet was then released at this point. We then irrigated and closed the deep subdermal tissues with interrupted #2-0 PDS sutures, skin was closed with kera, covered by an Optifoam dry sterile bulky dressing. She was transferred to the recovery room in stable condition. There were no intraoperative complications.
[2018-11-05 10:00] VITALS: BP 146/88
--- NOTE | 2018-11-05 11:38 | IPNPDOC ---
Text Note Date of Service The patient was seen on 11/05/18. NOTE Subjective: Patient seen and examined at bedside. No acute overnight events reported. No new medical complaints this morning. She feels she is not ready to go home today. Objective: VITAL SIGNS: Please see below. GENERAL APPEARANCE: obese, alert, in no apparent distress HEENT: NC/AT, PERRL, EOMI, MMM RESPIRATORY: CTA B/L CARDIOVASCULAR: +S1S2, RRR no MRG ABDOMEN: soft non tender, nondistended, nl bowel sounds EXTREMITIES: trace edema. NEUROLOGICAL: no focal deficits PSYCHIATRIC: nl mood and affect, A&Ox3 ASSESSMENT/PLAN: 67f with dm, nayla, htn POD #1 TKA #DM diabetic diet hold metformin while inpatient monitor fingersticks sliding scale correction #htn continue cozaar, aldactone, lasix continue norvasc #hld continue statin #GERD continue protonix #NAYLA continue cpap #DVT prophylaxis - as per primary team VS,Fishbone, I+O VS, Fishbone, I+O Laboratory Tests 11/05/18 06:41 Red Blood Count 4.26, Mean Corpuscular Volume 89.9, Mean Corpuscular Hemoglobin 28.9, Mean Corpuscular Hemoglobin Concent 32.1, Red Cell Distribution Width 13.5, Calcium Level 8.2 L Vital Signs Date Time Temp Pulse Resp B/P (MAP) Pulse Ox O2 Delivery O2 Flow Rate FiO2 11/05/18 10:00 98.9 85 18 146/88 (107) 94 11/04/18 12:55 4 I&O- Last 24 Hours up to 6 AM 11/05/18 06:00 Intake Total 3050 ml Output Total 400 ml Balance 2650 ml RYAN HERZOG MD Nov 05, 2018 11:38
[2018-11-05 14:00] VITALS: BP 168/76
[2018-11-05] MEDS: RIVAROXABAN 10 MG TAB (XARELTO) PO SCH (17:21)
[2018-11-05] MEDS: ATORVASTATIN 20 MG TAB PO SCH (20:50)
[2018-11-05] MEDS: LEVEMIR (INSULIN DETEMIR) 1 UNITS/0.01ML SC SCH (20:54)
[2018-11-05 22:00] VITALS: BP 168/79
[2018-11-06] MEDS: PERCOCET 5MG/325MG TAB PO PRN ×4 (04:07→17:19)
[2018-11-06 06:08] VITALS: BP 134/58
[2018-11-06 06:26] LABS: HEMATOCRIT 36.3 % (36.0-47.0); HEMOGLOBIN 11.9 g/dl (12.0-15.5); MEAN CORPUSCULAR HEMOGLOBIN 29.5 pg (27.0-33.0); MEAN CORPUSCULAR HGB CONC 32.8 g/dl (32.0-36.5); MEAN CORPUSCULAR VOLUME 90.1 fl (80.0-96.0); PLATELET COUNT, AUTOMATED 177 10^3/uL (150-450); RED BLOOD COUNT 4.03 10^6/uL (4.00-5.40); WHITE BLOOD COUNT 12.8 10^3/uL (4.0-10.0)
[2018-11-06 06:52] LABS: CALCIUM LEVEL 8.5 MG/DL (8.8-10.2); CREATININE FOR GFR 1.1 MG/DL (0.55-1.30); GLOMERULAR FILTRATION RATE 52.9 (>45); POTASSIUM SERUM 3.9 MEQ/L (3.5-5.1)
[2018-11-06] MEDS: HumaLOG INSULIN (NovoLOG) PER UNIT SC SCH ×4 (07:30→17:18)
[2018-11-06] MEDS: LOSARTAN 50 MG TAB PO SCH (07:50)
[2018-11-06] MEDS: PANTOPRAZOLE 40MG TAB (PROTONIX) PO SCH (07:50)
[2018-11-06] MEDS: FUROSEMIDE 40 MG TAB PO SCH ×2 (07:50→17:18)
[2018-11-06] MEDS: MIRALAX *UNIT DOSE* 17GM PACKET PO SCH (07:51)
[2018-11-06] MEDS: MOM 30ML SUSPENSION UDC PO SCH (07:51)
[2018-11-06] MEDS: ESCITALOPRAM OXALATE 10 MG TAB (LEXAPRO) PO SCH (07:51)
[2018-11-06] MEDS: SPIRONOLACTONE 25 MG TAB PO SCH (07:51)
[2018-11-06 11:06] VITALS: BP 132/58
--- NOTE | 2018-11-06 12:55 | IPNPDOC ---
Text Note Date of Service The patient was seen on 11/06/18. NOTE Subjective: Patient seen and examined at bedside. No acute overnight events reported. No new medical complaints this morning. She feels she is not ready to go home today. Objective: VITAL SIGNS: Please see below. GENERAL APPEARANCE: obese, alert, in no apparent distress HEENT: NC/AT, PERRL, EOMI, MMM RESPIRATORY: CTA B/L CARDIOVASCULAR: +S1S2, RRR no MRG ABDOMEN: soft non tender, nondistended, nl bowel sounds EXTREMITIES: trace edema. NEUROLOGICAL: no focal deficits PSYCHIATRIC: nl mood and affect, A&Ox3 ASSESSMENT/PLAN: 67f with dm, nayla, htn POD #2 TKA #DM diabetic diet hold metformin while inpatient monitor fingersticks sliding scale correction #HTN continue cozaar, aldactone, lasix continue norvasc #HLD continue statin #GERD continue protonix #NAYLA continue cpap #DVT prophylaxis - as per primary team VS,Fishbone, I+O VS, Fishbone, I+O Laboratory Tests 11/06/18 05:57 Red Blood Count 4.03, Mean Corpuscular Volume 90.1, Mean Corpuscular Hemoglobin 29.5, Mean Corpuscular Hemoglobin Concent 32.8, Red Cell Distribution Width 13.3, Calcium Level 8.5 L Vital Signs Date Time Temp Pulse Resp B/P (MAP) Pulse Ox O2 Delivery O2 Flow Rate FiO2 11/06/18 12:32 18 11/06/18 11:06 98.3 70 132/58 (82) 94 11/04/18 12:55 4 I&O- Last 24 Hours up to 6 AM 11/06/18 06:00 Intake Total 1260 ml Output Total 2150 ml Balance -890 ml RYAN HERZOG MD Nov 06, 2018 12:55
[2018-11-06 15:25] VITALS: BP 129/57
[2018-11-06] MEDS: RIVAROXABAN 10 MG TAB (XARELTO) PO SCH (17:18)
[2018-11-06] MEDS: LEVEMIR (INSULIN DETEMIR) 1 UNITS/0.01ML SC SCH (20:34)
[2018-11-06] MEDS: ATORVASTATIN 20 MG TAB PO SCH (20:34)
[2018-11-06 22:00] VITALS: BP 134/65
[2018-11-07] MEDS: PERCOCET 5MG/325MG TAB PO PRN ×5 (02:42→22:42)
[2018-11-07] MEDS ORDERED: XARE10TA PO (05:50)
[2018-11-07 06:00] VITALS: BP 133/64
[2018-11-07 06:11] LABS: MEAN CORPUSCULAR HEMOGLOBIN 28.9 pg (27.0-33.0); MEAN CORPUSCULAR HGB CONC 32.4 g/dl (32.0-36.5); MEAN CORPUSCULAR VOLUME 89.2 fl (80.0-96.0); PLATELET COUNT, AUTOMATED 176 10^3/uL (150-450); RED BLOOD COUNT 3.81 10^6/uL (4.00-5.40)
[2018-11-07 06:31] LABS: CALCIUM LEVEL 8.1 MG/DL (8.8-10.2); CREATININE FOR GFR 1.22 MG/DL (0.55-1.30); GLOMERULAR FILTRATION RATE 46.9 (>45); POTASSIUM SERUM 3.9 MEQ/L (3.5-5.1)
[2018-11-07 08:00] VITALS: BP 137/64
[2018-11-07] MEDS: MIRALAX *UNIT DOSE* 17GM PACKET PO SCH (09:00)
[2018-11-07] MEDS: MOM 30ML SUSPENSION UDC PO SCH (09:51)
[2018-11-07] MEDS: ESCITALOPRAM OXALATE 10 MG TAB (LEXAPRO) PO SCH (09:51)
[2018-11-07] MEDS: SPIRONOLACTONE 25 MG TAB PO SCH (09:51)
[2018-11-07] MEDS: HumaLOG INSULIN (NovoLOG) PER UNIT SC SCH ×3 (09:51→17:54)
[2018-11-07] MEDS: FUROSEMIDE 40 MG TAB PO SCH ×2 (09:52→17:53)
[2018-11-07] MEDS: LOSARTAN 50 MG TAB PO SCH (09:52)
[2018-11-07] MEDS: PANTOPRAZOLE 40MG TAB (PROTONIX) PO SCH (09:52)
[2018-11-07 10:00] VITALS: BP 137/65
[2018-11-07 14:00] VITALS: BP 148/62
[2018-11-07] MEDS: RIVAROXABAN 10 MG TAB (XARELTO) PO SCH (17:53)
[2018-11-07] MEDS: ATORVASTATIN 20 MG TAB PO SCH (21:24)
[2018-11-07] MEDS: LEVEMIR (INSULIN DETEMIR) 1 UNITS/0.01ML SC SCH (21:24)
[2018-11-07 22:00] VITALS: BP 156/71
[2018-11-08] MEDS: PERCOCET 5MG/325MG TAB PO PRN ×2 (05:09→10:14)
[2018-11-08 06:00] VITALS: BP 158/70
[2018-11-08] MEDS ORDERED: XARE10TA PO (07:16)
[2018-11-08] MEDS: HumaLOG INSULIN (NovoLOG) PER UNIT SC SCH ×3 (07:28→11:48)
[2018-11-08] MEDS: MOM 30ML SUSPENSION UDC PO SCH (08:48)
[2018-11-08] MEDS: SPIRONOLACTONE 25 MG TAB PO SCH (08:49)
[2018-11-08] MEDS: MIRALAX *UNIT DOSE* 17GM PACKET PO SCH (08:49)
[2018-11-08 08:50] VITALS: BP 158/70
[2018-11-08] MEDS: ESCITALOPRAM OXALATE 10 MG TAB (LEXAPRO) PO SCH (08:50)
[2018-11-08] MEDS: LOSARTAN 50 MG TAB PO SCH (08:50)
[2018-11-08] MEDS: FUROSEMIDE 40 MG TAB PO SCH (08:50)
[2018-11-08] MEDS: PANTOPRAZOLE 40MG TAB (PROTONIX) PO SCH (08:50)
== END 2018-11-08 13:05 | disposition home or self-care (01) | DRG 470 ==
LOC: M OR 09:05 → M MS5PR 16:00
PROVIDERS: ADMIT Orthopaedic Surgery; ATTEND Orthopaedic Surgery
PROC: 0SRD0J9 Replacement of Left Knee Joint with Synthetic Substitute, Cemented, Open Approach (ICD-10-PCS; principal; 2018-11-04 12:05)
DX: M17.0 Bilateral primary osteoarthritis of knee (principal); E78.5 Hyperlipidemia, unspecified; I10 Essential (primary) hypertension; E11.9 Type 2 diabetes mellitus without complications; E66.9 Obesity, unspecified; K44.9 Diaphragmatic hernia without obstruction or gangrene; K21.9 Gastro-esophageal reflux disease without esophagitis; Z79.82 Long term (current) use of aspirin; Z79.4 Long term (current) use of insulin; Z79.899 Other long term (current) drug therapy; M50.30 Other cervical disc degeneration, unspecified cervical region; K58.9 Irritable bowel syndrome, unspecified; G47.33 Obstructive sleep apnea (adult) (pediatric); L50.9 Urticaria, unspecified; Z86.010 Personal history of colon polyps; Z91.19 Patient's noncompliance with other medical treatment and regimen; Z88.2 Allergy status to sulfonamides; Z88.1 Allergy status to other antibiotic agents; Z87.891 Personal history of nicotine dependence; Z68.38 Body mass index [BMI] 38.0-38.9, adult

== ENCOUNTER 2019-06-23 10:51 | Emergency (ER) | payer MEDICARE ==
[~2019-06-23] VITALS: Ht 170.2 cm; Wt 109.4 kg
[~2019-06-23 10:51] MED LIST changes: -ACETAMINOPHEN 500 MG TAB PO ONE; -LR 1,000 ML IV ONE; +PERC5TAB12 PO; -VANCOMYCIN HCL 1,000 MG, VIAL MATE ADAPTER 1 EACH in D5W 250 ML IV ONE; +XARE10TA PO
[2019-06-23] MEDS ORDERED: PROP80CA (11:02)
[2019-06-23] MEDS ORDERED: CLINDAMYCIN 600 MG in IV 1 EA IV ONE (11:45)
[2019-06-23] MEDS ORDERED: hydrOXYzine 25 MG TAB PO ONE (11:45)
--- NOTE | 2019-06-23 12:13 | REP ---
Clinical: Right lower extremity pain and swelling. Technique: Real time zhou scale and color Doppler evaluation of the right lower extremity using linear high frequency transducer. Findings: Ultrasound examination of the right lower extremity deep venous structures from the common femoral vein to the popliteal vein demonstrates normal compressibility, flow, and wave characteristics in response to raise aeration and augmentation. There is no evidence for deep venous thrombosis. 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 Impression: No evidence for DVT. Electronically Signed by Armen Oro MD 06/23/2019 12:04 P
[2019-06-23 12:40] LABS: BASO % 0.4 % (0.0-1.0); EOS # 0.6 10^3/uL (0.0-0.5); EOS % 7.6 % (0.0-3.0); HEMATOCRIT 41.9 % (36.0-47.0); HEMOGLOBIN 13.3 g/dl (12.0-15.5); LYMPH # 1.6 10^3/uL (1.5-5.0); LYMPH % 21.1 % (24.0-44.0); MEAN CORPUSCULAR HEMOGLOBIN 27.8 pg (27.0-33.0); MEAN CORPUSCULAR HGB CONC 31.7 g/dl (32.0-36.5); MEAN CORPUSCULAR VOLUME 87.7 fl (80.0-96.0); MONO # 0.5 10^3/uL (0.0-0.8); MONO % 6.5 % (0.0-5.0); NEUTROPHILS # 4.9 10^3/uL (1.5-8.5); NEUTROPHILS % 63.9 % (36.0-66.0); PLATELET COUNT, AUTOMATED 208 10^3/uL (150-450); RED BLOOD COUNT 4.78 10^6/uL (4.00-5.40); WHITE BLOOD COUNT 7.7 10^3/uL (4.0-10.0)
[2019-06-23 12:51] LABS: PROTHROMBIN TIME 12.9 SECONDS (11.8-14.0)
[2019-06-23 13:07] LABS: ERYTHROCYTE SEDIMENTATION RATE 10 mm/hr (0-30)
[2019-06-23 13:18] LABS: ALBUMIN 3.4 GM/DL (3.2-5.2); BILIRUBIN,DIRECT 0.1 MG/DL (0.0-0.2); BILIRUBIN,TOTAL 0.6 MG/DL (0.2-1.0); C REACTIVE PROTEIN QUANTITATIV 0.63 MG/DL (0.00-0.30); TOTAL PROTEIN 6.7 GM/DL (6.4-8.2)
[2019-06-23] MEDS ORDERED: HYDR-3363 PO (13:29)
[2019-06-23] MEDS ORDERED: CLEO300C2 PO (13:29)
[2019-06-23 13:35] VITALS: BP 183/86
== END 2019-06-23 13:39 | disposition home or self-care (01) ==
LOC: M ED 10:51
DX: L03.115 Cellulitis of right lower limb (principal); L29.9 Pruritus, unspecified; E11.9 Type 2 diabetes mellitus without complications; I12.9 Hypertensive chronic kidney disease with stage 1 through stage 4 chronic kidney disease, or unspecified chronic kidney disease; E78.5 Hyperlipidemia, unspecified; R51 Headache; G47.33 Obstructive sleep apnea (adult) (pediatric); K21.9 Gastro-esophageal reflux disease without esophagitis; F41.9 Anxiety disorder, unspecified; M48.00 Spinal stenosis, site unspecified; Z87.891 Personal history of nicotine dependence; Z79.4 Long term (current) use of insulin; Z79.899 Other long term (current) drug therapy; Z88.1 Allergy status to other antibiotic agents

== ENCOUNTER 2020-03-01 17:20 | Emergency (ER) | payer MEDICARE ==
[~2020-03-01] VITALS: Ht 170.2 cm; Wt 109.2 kg
[~2020-03-01 17:20] MED LIST changes: +ACET650T61 PO; +AMLO1TAB24 PO; -AMLO5TAB6 PO; +BUPR-69 PO; -BUPR50TA PO; +CLEO300C2 PO; +HYDR-3363 PO; +PANT40TA29 PO; -PANT40TA3 PO; +PROP80CA; -TYLE650T35 PO
[2020-03-01] MEDS ORDERED: BUPR150T5 (18:43)
[2020-03-01] MEDS ORDERED: TOUJ1.2I (18:43)
[2020-03-01 19:41] LABS: BASO # 0.1 10^3/uL (0.0-0.2); BASO % 0.5 % (0.0-1.0); EOS # 0.5 10^3/uL (0.0-0.5); EOS % 4.5 % (0.0-3.0); HEMATOCRIT 41.7 % (36.0-47.0); HEMOGLOBIN 12.8 g/dl (12.0-15.5); LYMPH # 1.9 10^3/uL (1.5-5.0); LYMPH % 18.2 % (24.0-44.0); MEAN CORPUSCULAR HEMOGLOBIN 27.2 pg (27.0-33.0); MEAN CORPUSCULAR HGB CONC 30.7 g/dl (32.0-36.5); MEAN CORPUSCULAR VOLUME 88.5 fl (80.0-96.0); MONO # 0.7 10^3/uL (0.0-0.8); MONO % 6.4 % (0.0-5.0); NEUTROPHILS # 7.1 10^3/uL (1.5-8.5); NEUTROPHILS % 69.9 % (36.0-66.0); PLATELET COUNT, AUTOMATED 206 10^3/uL (150-450); RED BLOOD COUNT 4.71 10^6/uL (4.00-5.40); WHITE BLOOD COUNT 10.1 10^3/uL (4.0-10.0)
[2020-03-01 20:04] LABS: ERYTHROCYTE SEDIMENTATION RATE 11 mm/hr (0-30)
[2020-03-01 20:06] LABS: C REACTIVE PROTEIN QUANTITATIV 0.83 MG/DL (0.00-0.30); CALCIUM LEVEL 8.9 MG/DL (8.8-10.2); CREATININE FOR GFR 1.17 MG/DL (0.55-1.30); POTASSIUM SERUM 4.3 MEQ/L (3.5-5.1)
[2020-03-01] MEDS ORDERED: CLINDAMYCIN 150MG CAPSULE PO ONE (20:15)
[2020-03-01] MEDS ORDERED: CLEO300C2 PO (20:16)
[2020-03-01 20:35] VITALS: BP 213/95
== END 2020-03-01 20:36 | disposition home or self-care (01) ==
LOC: M ED 17:20
DX: L03.115 Cellulitis of right lower limb (principal); L03.116 Cellulitis of left lower limb; R60.0 Localized edema; E11.9 Type 2 diabetes mellitus without complications; I13.0 Hypertensive heart and chronic kidney disease with heart failure and stage 1 through stage 4 chronic kidney disease, or unspecified chronic kidney disease; I50.9 Heart failure, unspecified; N18.9 Chronic kidney disease, unspecified; E78.5 Hyperlipidemia, unspecified; G47.33 Obstructive sleep apnea (adult) (pediatric); K21.9 Gastro-esophageal reflux disease without esophagitis; F41.9 Anxiety disorder, unspecified; F32.9 Major depressive disorder, single episode, unspecified; M48.00 Spinal stenosis, site unspecified; E78.00 Pure hypercholesterolemia, unspecified; Z88.1 Allergy status to other antibiotic agents; Z88.2 Allergy status to sulfonamides; Z79.4 Long term (current) use of insulin; Z79.899 Other long term (current) drug therapy

== ENCOUNTER → 2020-08-03 | Outpatient (CLI) | payer MEDICARE ==
[~2020-08-03] MED LIST changes: +BUPR150T12 PO; -BUPR150T3 PO; +BUPR150T5; +ISOVUE-300 61% 50ML VIAL As Ordered ONE; +TOUJ1.2I
--- NOTE | 2020-08-03 09:50 | REP ---
INDICATION: RT OA. COMPARISON: None TECHNIQUE: Standard helical CT of the right shoulder was obtained after the intra-articular injection of contrast. Sagittal and coronal reconstructions are also performed. The glenohumeral injection was performed by Gianfranco PATE. FINDINGS: There is asymmetric glenohumeral joint space narrowing. There is prominent humeral head marginal osteophytosis with multifocal subchondral cyst formation seen involving the glenoid. There is glenoid and humeral head chondral thinning and irregularity. There is severe truncation of the superior labrum anterior to posterior with labral irregularity and possible tiny loose intra-articular bodies. There is no evidence that any of the injected fluid has migrated superior to the supraspinatus tendon, however, there may be a tiny amount of contrast superficial to the anterior leading edge. The biceps tendon resides within the bicipital groove. There is mild AC joint DJD. IMPRESSION: 1. Degenerative changes as described above. 2. Abnormal labrum as described above. 3. Chondromalacia. 4. Possible tiny loose intra-articular bodies. 5. Possible tiny full-thickness partial tear supraspinatus tendon. <Electronically signed by Amrik Alba > 08/03/20 [id number]
--- NOTE | 2020-08-03 16:40 | REP ---
INDICATION: RT OA COMPARISON: None. TECHNIQUE: The procedure was performed under the direct supervision of Dr. Matthews. The benefits and risks including but not limited to pain, infection, bleeding and anaphylaxis were explained to the patient and informed consent was obtained. The right glenohumeral joint space was localized using fluoroscopic guidance. The skin was prepped and draped in a sterile fashion. 1% lidocaine was used as a local anesthetic. Using fluoroscopic guidance a 22 gauge spinal needle was inserted and advanced into the joint. 11 ml of Isovue-300 was injected into the joint. The needle was removed and the patient was taken to CT scan for postprocedural imaging. The patient tolerated the procedure well and there were no immediate complications. Less than 6 seconds of fluoro time was utilized for this procedure. FINDINGS: None IMPRESSION: Fluoro guidance for right shoulder CT arthrogram injection. <Electronically signed by Harsha Holloway > 08/03/20 [id number] <Electronically signed by Rick Matthews > 08/03/20 [id number]
== END ==
LOC: M RADPRO 08:45
PROVIDERS: ATTEND Orthopaedic Surgery
DX: M19.011 Primary osteoarthritis, right shoulder (principal)
CPT/HCPCS: 23350; 73201; 77002; Q9967

== ENCOUNTER 2020-09-01 16:48 | Inpatient (IN) | payer MEDICARE ==
[~2020-09-01] VITALS: Ht 165.1 cm; Wt 105.8 kg
[~2020-09-01 16:48] MED LIST changes: -ISOVUE-300 61% 50ML VIAL As Ordered ONE
[2020-09-01] MEDS ORDERED: ONDANSETRON 4MG/2ML VIAL IV ONE (17:55)
[2020-09-01] MEDS ORDERED: GI COCKTAIL 50ML BTL(HYOSCYAMINE/MAALOX/LIDOCAINE VISCOUS)(1:3:1) PO ONE (17:55)
[2020-09-01] MEDS ORDERED: NS 1,000 ML IV ONE (17:55)
[2020-09-01 18:55] LABS: BASO # 0.1 10^3/uL (0.0-0.2); BASO % 0.7 % (0.0-1.0); EOS # 0.2 10^3/uL (0.0-0.5); EOS % 3.3 % (0.0-3.0); HEMATOCRIT 37.1 % (36.0-47.0); HEMOGLOBIN 11.7 g/dl (12.0-15.5); LYMPH # 1.2 10^3/uL (1.5-5.0); LYMPH % 17.8 % (24.0-44.0); MEAN CORPUSCULAR HEMOGLOBIN 27.7 pg (27.0-33.0); MEAN CORPUSCULAR HGB CONC 31.5 g/dl (32.0-36.5); MEAN CORPUSCULAR VOLUME 87.7 fl (80.0-96.0); MONO # 0.8 10^3/uL (0.0-0.8); MONO % 10.9 % (2.0-8.0); NEUTROPHILS # 4.6 10^3/uL (1.5-8.5); NEUTROPHILS % 66.7 % (36.0-66.0); PLATELET COUNT, AUTOMATED 121 10^3/uL (150-450); RED BLOOD COUNT 4.23 10^6/uL (4.00-5.40); WHITE BLOOD COUNT 6.9 10^3/uL (4.0-10.0)
[2020-09-01] MEDS ORDERED: ISOVUE-370 76% 100ML VIAL As Ordered ONE (19:05)
[2020-09-01 19:27] LABS: ALBUMIN 2.9 GM/DL (3.2-5.2); ALT/SGPT 10 U/L (12-78); BILIRUBIN,DIRECT 0.3 MG/DL (0.0-0.2); BILIRUBIN,TOTAL 1.3 MG/DL (0.2-1.0); LIPASE 1828 U/L (73-393); TOTAL PROTEIN 6.1 GM/DL (6.4-8.2)
[2020-09-01 19:38] LABS: MONO SCRN NEGATIVE (NEGATIVE)
--- NOTE | 2020-09-01 20:07 | REPVR ---
PROCEDURE INFORMATION: Exam: CT Abdomen And Pelvis With Contrast Exam date and time: 09/01/2020 7:09 PM Age: 69 years old Clinical indication: Abdominal pain; Generalized; Additional info: Luq abd pain x 10 days, now generalized TECHNIQUE: Imaging protocol: Computed tomography of the abdomen and pelvis with contrast. Radiation optimization: All CT scans at this facility use at least one of these dose optimization techniques: automated exposure control; mA and/or kV adjustment per patient size (includes targeted exams where dose is matched to clinical indication); or iterative reconstruction. Contrast material: ISOVUE 370; Contrast volume: 100 ml; Contrast route: INTRAVENOUS (IV); COMPARISON: No relevant prior studies available. FINDINGS: Pleural spaces: Small left pleural effusion with minimal atelectasis at the left lung base. Liver: Normal. No mass. Gallbladder and bile ducts: Normal. No calcified stones. No ductal dilation. Pancreas: The pancreatic body and tail appears edematous with the hyperdense fluid around the pancreatic tail. Spleen: Spleen is enlarged and measures 13 cm. Adrenal glands: Normal. No mass. Kidneys and ureters: Right kidney is the atrophy. Stomach and bowel: Unremarkable. No obstruction. No mucosal thickening. Appendix: No evidence of appendicitis. Intraperitoneal space: Fluid in the pelvis. Vasculature: Unremarkable. No abdominal aortic aneurysm. Lymph nodes: Unremarkable. No enlarged lymph nodes. Urinary bladder: Unremarkable as visualized. Reproductive: Unremarkable as visualized. Bones/joints: Unremarkable. No acute fracture. Soft tissues: Unremarkable. Other findings: Evaluation is limited due to extensive motion and streak artifact. IMPRESSION: Suboptimal examination secondary to streak artifact. The pancreatic body and tail appears edematous with hemorrhagic/hyperdense fluid around the pancreatic body/tail measuring approximately 5.6 x 3.0 x 7.8 cm. Findings likely representing acute pancreatitis. Clinical correlation with the lab enzymes. Splenomegaly. Small left pleural effusion. Electronically signed by: Javier Hawkins On 09/01/2020 20:07:00 PM
[2020-09-01] MEDS ORDERED: TOUJ1.2I SC (21:22)
[2020-09-01] MEDS ORDERED: HYDR-3363 PO (21:22)
[2020-09-01] MEDS ORDERED: PROP80CA PO (21:22)
[2020-09-01] MEDS ORDERED: SPIR-10 PO (21:22)
[2020-09-01] MEDS ORDERED: BUPR150T5 PO (21:22)
[2020-09-01] MEDS ORDERED: MAGN400T2 PO (21:22)
[2020-09-01] MEDS ORDERED: MORPHINE 2 MG/ML 1ML VIAL (J2270) IV PRN (21:45)
[2020-09-01] MEDS ORDERED: KETOROLAC 30 MG/ML 1ML VIAL IV PRN ×2 (21:45)
[2020-09-01] MEDS ORDERED: METOCLOPRAMIDE INJ 10MG/2ML VIAL (J2765 PER 1) IV PRN (21:45)
[2020-09-01] MEDS ORDERED: NS 1,000 ML IV SCH (21:45)
[2020-09-01] MEDS ORDERED: CIPROFLOXACIN 400 MG in IV 1 EA IV SCH (22:00)
[2020-09-01 22:10] LABS: BLOOD UREA NITROGEN 28 MG/DL (7-18); C REACTIVE PROTEIN QUANTITATIV 6.02 MG/DL (0.00-0.30); CALCIUM LEVEL 8.8 MG/DL (8.8-10.2); CARBON DIOXIDE LEVEL 31 MEQ/L (21-32); CHLORIDE LEVEL 102 MEQ/L (98-107); CREATININE FOR GFR 1.23 MG/DL (0.55-1.30); GLOMERULAR FILTRATION RATE 46.2 (>45); GLUCOSE, FASTING 204 MG/DL (70-100); MAGNESIUM LEVEL 1.7 MG/DL (1.8-2.4); POTASSIUM SERUM 4.2 MEQ/L (3.5-5.1); SODIUM LEVEL 138 MEQ/L (136-145)
[2020-09-01] MEDS: metroNIDAZOLE 500 MG in IV 1 EA IV SCH (22:30)
[2020-09-01] MEDS: NS 1,000 ML IV SCH (22:30)
[2020-09-01] MEDS ORDERED: GLUCOSE 4GM CHEW TABLET PO PRN (23:05)
[2020-09-01] MEDS ORDERED: GLUCAGON INJ 1MG VIAL SC PRN (23:05)
[2020-09-01] MEDS ORDERED: DEXTROSE 50% 50 ML SYRINGE IV PRN (23:05)
[2020-09-01 23:21] LABS: NT-PRO BNP 3290 PG/ML (<125)
[2020-09-01 23:22] LABS: RSV AMPLIFICATION NEGATIVE (NEGATIVE)
[2020-09-01 23:25] LABS: INR 1.06; PARTIAL THROMBOPLASTIN TIME 26.7 SECONDS (24.2-38.5)
--- NOTE | 2020-09-01 23:29 | REPVR ---
PROCEDURE INFORMATION: Exam: XR Chest Exam date and time: 09/01/2020 11:22 PM Age: 69 years old Clinical indication: Other: Dyspnea TECHNIQUE: Imaging protocol: XR of the chest. Views: 2 views. COMPARISON: CR CHEST 2 VIEW 04/26/2015 12:45 PM FINDINGS: Lungs: Minimal atelectasis at the left lung base. Pleural spaces: Unremarkable. No pleural effusion. No pneumothorax. Heart/Mediastinum: Cardiomegaly. Bones/joints: Hardware in the lower cervical spine. Degenerative changes of the spine and bilateral shoulder joints. IMPRESSION: Minimal atelectasis at the left lung base. Electronically signed by: Javier Hawkins On 09/01/2020 23:29:27 PM
[2020-09-02] MEDS: CIPROFLOXACIN 400 MG in IV 1 EA IV SCH ×3 (00:14→22:14)
[2020-09-02 01:00] VITALS: BP 146/78
[2020-09-02] MEDS: HumaLOG INSULIN (NovoLOG) PER UNIT SC SCH ×5 (01:18→21:00)
--- NOTE | 2020-09-02 03:18 | HPEPDOC ---
General Date of Admission Sep 01, 2020 at 21:44 Date of Service: Sep 01, 2020 Chief Complaint The patient is a 69-year-old female admitted with a reason for visit of Acute Pancreatitis. Source: Patient, RN/MD Timing/Duration: Week(s), Getting worse Severity: Mild Associated Symptoms: Loss of appetite, Malaise, Nausea, Weakness History of Present Illness Mrs. Lunsford, is a 69 year-old female with significant PMH of GERD, Diabetes Mellitus type 2 on Insulin, Essential Hypertension, Hyperlipidemia, Dep ression and Anxiety, spinal stenosis, Cellulitis recurrent Left leg, CKD stage 3 new onset, Pyelonephritis, GERD, Colon polyps, Hiatal hernia, Cervical DDD, Osteoarthritis,EULALIA on CPAP at home and Hyperlipidemia, presents to [facility] ER with worsening fatigue, malaise, nausea, vomiting, and Left Upper Quadrant pain that radiates to her upper back between her scapula and rash that occurs when she becomes anxious. She reports experiencing her first symptom of nausea, vomiting with diarrhea approximately 14 days ago with the nausea, vomiting, with increasing fatigue with malaise worsening over the last 48 hours. She denies chest pain, but does says she has intermittent lightheadedness and shortness of breath which worsens with ambulation. In reviewing patients laboratory results it shows, total white blood cell count of 6.9, decreased hemoglobin 11.7, hematocrit 37.1, decreased platelets 121, absolute neutrophil count of 66.7, monocytes absolute 10.9. MEDICAL RECORDS LIBRARY PROFESSOR shows anion gap of 5, BUN/Creat 28/1.23 with eGFR 46.2 which correlates with CKD stage 3 new onset and magnesium 1.7 (Hypomagnesium). Patients Abdominal/Pelvis CT shows enlarged spleen 13 cm. Patient will be admitted to Medical Surgical unit Inpatient with IV with ongoing evaluation, monitoring with IV antibiotics. Home Medications Scheduled Amlodipine Besylate (Amlodipine Besylate) 2.5 Mg Tab, 2.5 MG PO QHS, (Reported) Atorvastatin Calcium (Atorvastatin Calcium) 20 Mg Tab, 20 MG PO QHS, (Reported) Bupropion Hcl (Bupropion HCl Sr) 150 Mg Tab.sr.12h, 150 MG PO QHS, (Reported) Furosemide (Furosemide) 40 Mg Tab, 40 MG PO BID, (Reported) Insulin Glargine,Hum.rec.anlog (Toujeo Solostar) 300 Unit/1 Ml Insuln.pen, 140 UNIT SC QHS, (Reported) Losartan Potassium (Losartan Potassium) 100 Mg Tab, 100 MG PO DAILY, (Reported) Magnesium Oxide (Magnesium Oxide) 400 Mg Tablet, 400 MG PO DAILY, (Reported) Metformin HCl (Metformin HCl) 1,000 Mg Tab, 1,000 MG PO BID, (Reported) Propranolol HCl (Propranolol HCl ER) 80 Mg Cap.sa.24h, 80 MG PO QHS, (Reported) Spironolactone (Spironolactone) 25 Mg Tablet, 25 MG PO DAILY, (Reported) Scheduled PRN Acetaminophen (Tylenol Arthritis) 650 Mg Tablet.er, 1,300 MG PO Q8H PRN for PAIN, (Reported) Hydroxyzine HCl (Hydroxyzine HCl) 25 Mg Tablet, 25 MG PO QID PRN for ITCHING, (Reported) Pantoprazole Sodium (Pantoprazole Sodium) 40 Mg Tab, 40 MG PO DAILY PRN for ACID REFLUX, (Reported) Allergies Coded Allergies: cephalexin (Verified Allergy, Intermediate, rash, 11/04/18) clindamycin (Verified Allergy, Intermediate, rash, 09/01/20) sulfamethoxazole (Verified Allergy, Intermediate, rash, 11/04/18) trimethoprim (Verified Allergy, Intermediate, rash, 11/04/18) Past Medical History Medical History Hypertension, Diabetes Mellitus type II Insulin dependent, spinal stenosis, Cellulitis recurrent Left leg, CKD stage 3, Pyelonephritis, GERD, Colon polyps, Hiatal hernia, Cervical DDD, Anxiety, Depression, Osteoarthritis,EULALIA on CPAP, Gout and Hyperlipidemia. Surgical History Tonsillectomy, cervical spine fusion, appendectomy, Left knee replacement total, and oophorectomy. Social History * Smoker: Denies Alcohol: Denies Drugs: denies Psychosocial History: Anxiety, Decreased mood A-FIB/CHADSVASC A-FIB History Current/History of A-Fib/PAF?: No Review of Systems Constitutional: Reports: Malaise, Weakness, Fatigue Eyes: Denies: Pain, Vision change, Conjunctivae inflammation, Eyelid inflammation, Redness, Other ENT: Reports: Other Symptoms (no appetite, loss of taste and smell) Skin: Reports: Dry, Other (cellulitis Left leg) Pulmonary: Reports: Dyspnea Cardiovascular: Reports: Edema, Lt Headedness Gastrointestinal: Reports: Nausea, Vomiting, Abdominal Pain, Diarrhea (intermittent) Genitourinary: Denies: Dysuria, Frequency, Incontinence, Hematuria, Retention, Other Symptoms Hematologic: Denies: Bruising, Bleeding Excessively, Petecchia, Purpura, Enlarged Lymph Nodes, Other Hematologic Endocrine: Denies: Polydipsia, Polyphagia, Polyuria, Heat Intolerance, Cold Intolerance, Other Endocrine Sx Musculoskeletal: Reports: Back Pain (between shoulder blades x2 weeks) Neurological: Reports: Weakness Psych: Reports: Mood Normal Physical Examination General Exam: Positive: Alert, Cooperative, No Acute Distress Eye Exam: Positive: PERRLA, Conjunctiva & lids normal ENT Exam: Positive: Atraumatic, Tongue Midline, Other ENT (oral membrane dry) Neck Exam: Positive: Supple Chest Exam: Positive: Diminished (Left lower lobe) Heart Exam: Positive: Normal S1, Normal S2 Telemetry: Positive: No significant arrhythmia Abdomen Exam: Positive: Normal bowel sounds, Tenderness (LUQ 5-6/10 pain on palpation) Extremity Exam: Positive: Edema (BLE), Swelling (Edema bilateral lower legs +3 with Left > Right) Skin Exam: Positive: Pruritus, Other skin issue (Left leg erythematous, warm to touch; utarical rash arms and legs) Neuro Exam: Positive: Normal Speech, Cranial Nerves 3-12 NL Psych Exam: Positive: Mental status NL, Mood NL Vital Signs Vital Signs Date Time Temp Pulse Resp B/P (MAP) Pulse Ox O2 Delivery O2 Flow Rate FiO2 09/01/20 18:43 09/01/20 16:49 98.4 85 16 97 Room Air Laboratory Data Labs 24H Laboratory Tests 2 09/01/20 18:35: POC Glucose (Misc Panel) 196H, POC Sodium (Misc Panel) 137, POC Potassium (Misc Panel) 4.2, POC Chloride (Misc Panel) 98, POC Total CO2 (Misc Panel) 30.0H, POC Blood Urea Nitrogen (Misc Panel 26, POC Ionized Calcium (Misc Panel) 4.8, POC Creatinine (Misc Panel) 1.2, POC Hematocrit (Misc Panel) 37.0L 09/01/20 18:36: Immature Granulocyte % (Auto) 0.6, Neutrophils (%) (Auto) 66.7H, Lymphocytes (%) (Auto) 17.8L, Monocytes (%) (Auto) 10.9H, Eosinophils (%) (Auto) 3.3H, Basophils (%) (Auto) 0.7, Neutrophils # (Auto) 4.6, Lymphocytes # (Auto) 1.2L, Monocytes # (Auto) 0.8, Eosinophils # (Auto) 0.2, Basophils # (Auto) 0.1, Nucleated Red Blood Cells % (auto) 0.0, Urine Color YELLOW, Urine Appearance HAZY, Urine pH 5.0, Urine Specific Gu[place] 1.011, Urine Protein NEGATIVE, Urine Glucose (UA) NEGATIVE, Urine Ketones NEGATIVE, Urine Blood 1+H, Urine Nitrite NEGATIVE, Urine Bilirubin NEGATIVE, Urine Urobilinogen 0.2, Urine Leukocyte Esterase 3+H, Urine WBC (Auto) 91H, Urine RBC (Auto) 8H, Urine Hyaline Casts (Auto) 3, Urine Bacteria (Auto) 2+H, Urine Squamous Epithelial Cells 0, Urine Mucus (Auto) SMALL, Urine Sperm (Auto) , Anion Gap 5L, Glomerular Filtration Rate 46.2, Lactic Acid Level 1.8, Calcium Level 8.8, Magnesium Level 1.7L, Total Bilirubin 1.3H, Direct Bilirubin 0.3H, Gamma Glutamyl Transferase 15, Aspartate Amino Transf (AST/SGOT) 10, Alanine Aminotransferase (ALT/SGPT) 10L, Alkaline Phosphatase 73, C-Reactive Protein, Quantitative 6.02H, Total Protein 6.1L, Albumin 2.9L, Albumin/Globulin Ratio 0.9L, Lipase 1828H, Monoscreen NEGATIVE 09/01/20 22:24: Bedside Glucose (Misc Panel) 190H CBC/BMP Laboratory Tests 09/01/20 18:36 Microbiology Microbiology 09/01/20 Urine Culture, Received Pending Problems (1) Acute pancreatitis Status: Acute Discussed With: Patient Problem Specific Plan: Consult Specialist, Monitor Clinically, Repeat Labs Problem Text: Mrs. Lunsford, is a 69 year-old female admitted to [facility] for Acute Pancreatitis, Hypomagnesia, Acute Urticaria secondary to anxiety. Acute Pancreatitis-Acute Plan Admit to Inpatient with telemetry & continuous pulse oximetry IVF NS at 125 ml/hr; IV antibiotic: Ciprofloxacin 400 mg IV q 8 hours; Flagyl IV q 8 hours Check AM labs and replace electrolytes as needed NPO Pain management: IV Ketorolac 30 mg IV q 6 hours prn severe pain and Ketoralac 15 mg IV q 6 hours prn mild to moderate pain Control N/V- Metoclopramide 10 mg IV q6 hours prn; Zofran 4mg IV [id number] prn Re-Check AM labs Hypomagnesium-Acute Mag level 1.7- ordered 1GM /run of Magnesium Sulfate IV Urticaria -acute onset while hospitalized. Patient reports she gets this often due to Anxiety Benadryl 25 mg IV push x 1 dose now at 0500 Diabetes Mellitus-chronic continue home Insulin and hold Metformin po POC glucose q 6 hours & Initiate hypoglycemia protocol per [facility] policy SS Insulin SQ q 6 hours while npo, then change to AC & HS when eating Hemoglobin A1c check Essential Hypertension-Chronic Monitor VS Continue home medication regimen PPI Prophylaxis: DVT Prophylaxis: Lovenox 40 mg SC daily & SCDs with RHONA Kenney BLE Discharge: Pending clinical course. (2) Pruritus Status: Acute Problem Specific Plan: Monitor Clinically (3) Edema of both lower extremities Status: Chronic Response to Treatment: Uncontrolled Discussed With: Patient Problem Specific Plan: Monitor Clinically, Repeat Labs (4) Cellulitis of both lower extremities Status: Chronic Discussed With: Patient Problem Specific Plan: Monitor Clinically Plan / VTE VTE Prophylaxis Ordered?: Yes VTE Exclusion Mechanical Proph: N/A:VTE Prophy Ordered VTE Exclusion Pharmacological: N/A:VTE Prophy Ordered MIKE GORDILLO [facility] Sep 01, 2020 22:58
[2020-09-02] MEDS: NS 1,000 ML IV SCH ×4 (04:15→22:14)
[2020-09-02] MEDS ORDERED: diphenhydrAMINE 50MG/ML VIAL (J1200) IV ONE (04:40)
[2020-09-02] MEDS ORDERED: ANUSOL HC CREAM 30GM TOP PRN (04:40)
[2020-09-02] MEDS ORDERED: MAG SULF 1GM/100ML (MAG RUN) 1 GM in IV 1 EA IV ONE (05:45)
[2020-09-02 05:59] LABS: BASO # 0.1 10^3/uL (0.0-0.2); BASO % 0.9 % (0.0-1.0); EOS # 0.2 10^3/uL (0.0-0.5); EOS % 4.1 % (0.0-3.0); HEMATOCRIT 33.3 % (36.0-47.0); HEMOGLOBIN 10.4 g/dl (12.0-15.5); LYMPH # 1.2 10^3/uL (1.5-5.0); LYMPH % 19.7 % (24.0-44.0); MEAN CORPUSCULAR HEMOGLOBIN 27.5 pg (27.0-33.0); MEAN CORPUSCULAR HGB CONC 31.2 g/dl (32.0-36.5); MEAN CORPUSCULAR VOLUME 88.1 fl (80.0-96.0); MONO # 0.8 10^3/uL (0.0-0.8); MONO % 14.4 % (2.0-8.0); NEUTROPHILS # 3.5 10^3/uL (1.5-8.5); NEUTROPHILS % 60.4 % (36.0-66.0); PLATELET COUNT, AUTOMATED 109 10^3/uL (150-450); RED BLOOD COUNT 3.78 10^6/uL (4.00-5.40); WHITE BLOOD COUNT 5.9 10^3/uL (4.0-10.0)
[2020-09-02 06:00] VITALS: BP 155/74
[2020-09-02] MEDS: metroNIDAZOLE 500 MG in IV 1 EA IV SCH ×3 (06:49→22:16)
[2020-09-02] MEDS: ENOXAPARIN 40MG/0.4ML SYRINGE (J1650 PER 10MG) SC SCH (08:19)
[2020-09-02] MEDS ORDERED: FLUBLOK(EGG FREE)(QUAD)INFLUENZA VACC 0.5ML SYRINGE 18YRS & OLDER IM ONE (09:00)
[2020-09-02] MEDS ORDERED: PNEUMOCOCCAL VACCINE 0.5ML SYRINGE (PNEUMOVAX 23) IM ONE (09:00)
[2020-09-02 09:01] LABS: ALBUMIN 2.5 GM/DL (3.2-5.2); BILIRUBIN,TOTAL 0.7 MG/DL (0.2-1.0); CALCIUM LEVEL 8.1 MG/DL (8.8-10.2); CREATININE FOR GFR 1.11 MG/DL (0.55-1.30); MAGNESIUM LEVEL 2.1 MG/DL (1.8-2.4); POTASSIUM SERUM 4.1 MEQ/L (3.5-5.1); TOTAL PROTEIN 5.6 GM/DL (6.4-8.2)
[2020-09-02] MEDS: ONDANSETRON 4MG/2ML VIAL IV PRN ×2 (13:18→18:35)
--- NOTE | 2020-09-02 13:53 | IPNPDOC ---
Subjective Date Seen The patient was seen on 09/02/20. Subjective Chief Complaint/HPI Mrs. Lunsford is a 69 year old female with DM type 2, hypertension, and hyperlipidemia who presents with abdominal pain and found to have acute panc reatitis. This morning, she feel better. The abdominal pain improved and she has an appetite. Will try her on a clear liquid diet. Otherwise, denies any chest pain or dyspnea. Objective Physical Examination General Exam: Positive: Alert, Cooperative, No Acute Distress Eye Exam: Positive: PERRLA, Conjunctiva & lids normal ENT Exam: Positive: Atraumatic, Tongue Midline, Other ENT (oral membrane dry) Neck Exam: Positive: Supple Chest Exam: Positive: Diminished (Left lower lobe) Heart Exam: Positive: Normal S1, Normal S2 Telemetry: Positive: No significant arrhythmia Abdomen Exam: Positive: Normal bowel sounds, Tenderness (LUQ 5-6/10 pain on palpation) Extremity Exam: Positive: Edema (BLE), Swelling (Edema bilateral lower legs +3 with Left > Right) Skin Exam: Positive: Pruritus, Other skin issue (Left leg erythematous, warm to touch; utarical rash arms and legs) Neuro Exam: Positive: Normal Speech, Cranial Nerves 3-12 NL Psych Exam: Positive: Mental status NL, Mood NL Assessment /Plan Assessment Mrs. Lunsford is a 69 year old female with DM type 2, hypertension, and hyperlipidemia who presents with abdominal pain and found to have acute pancreatitis. Her urine is suspicious for UTI, and this may be the cause to her pancreatitis. She is on antibiotics. Otherwise, her abdominal pain improved. Will continue with IVF and supportive care, but will try her on a clear liquid diet. Plan/VTE VTE Prophylaxis Ordered?: Yes VTE Exclusion Mechanical Proph: N/A:VTE Prophy Ordered VTE Exclusion Pharmacological: N/A:VTE Prophy Ordered Plan 1. Acute pancreatitis -Triglycerides mildly elevated. Patient denies alcohol. CT abd/pelvis did not demonstrate any stones -Possibly secondary to UTI -Continue antibiotics -Continue IVF and pain control -Patient has an appetite, will try a clear liquid diet today 2. Possible UTI -UA suggestive of UTI -Pending urine cultures -Currently on antibiotics 3. Diabetes mellitus type 2 -Hold metformin -Continue sliding scale insulin 4. Stasis dermatitis -Not tender, but is warm, red, and flaky -Unlikely to be cellulitis -Leg elevation and compression stockings -Hold diuretics at this time 5. Hypertension -Patient's blood pressure is slightly elevated, but most likely due to IVF -Will add back amlodipine and propranolol -Hold spironolactone, losartan, and furosemide (Studies shows diuretics and losartan can cause pancreatitis) 6. DVT ppx -Lovenox Disposition: Pending urine culture and clinical improvement VS, I&O, 24H, Fishbone Vital Signs/I&O Vital Signs Date Time Temp Pulse Resp B/P (MAP) Pulse Ox O2 Delivery O2 Flow Rate FiO2 09/02/20 06:00 98.0 80 20 155/74 (101) 94 09/02/20 01:00 Room Air I&O- Last 24 Hours up to 6 AM 09/02/20 06:00 Intake Total 1800 ml Output Total 150 ml Balance 1650 ml Laboratory Data 24H LABS Laboratory Tests 2 09/01/20 18:35: POC Glucose (Misc Panel) 196H, POC Sodium (Misc Panel) 137, POC Potassium (Misc Panel) 4.2, POC Chloride (Misc Panel) 98, POC Total CO2 (Misc Panel) 30.0H, POC Blood Urea Nitrogen (Misc Panel 26, POC Ionized Calcium (Misc Panel) 4.8, POC Creatinine (Misc Panel) 1.2, POC Hematocrit (Misc Panel) 37.0L 09/01/20 18:36: Immature Granulocyte % (Auto) 0.6, Neutrophils (%) (Auto) 66.7H, Lymphocytes (%) (Auto) 17.8L, Monocytes (%) (Auto) 10.9H, Eosinophils (%) (Auto) 3.3H, Basophils (%) (Auto) 0.7, Neutrophils # (Auto) 4.6, Lymphocytes # (Auto) 1.2L, Monocytes # (Auto) 0.8, Eosinophils # (Auto) 0.2, Basophils # (Auto) 0.1, Nucleated Red Blood Cells % (auto) 0.0, Urine Color YELLOW, Urine Appearance HAZY, Urine pH 5.0, Urine Specific [place] 1.011, Urine Protein NEGATIVE, Urine Glucose (UA) NEGATIVE, Urine Ketones NEGATIVE, Urine Blood 1+H, Urine Nitrite NEGATIVE, Urine Bilirubin NEGATIVE, Urine Urobilinogen 0.2, Urine Leukocyte Esterase 3+H, Urine WBC (Auto) 91H, Urine RBC (Auto) 8H, Urine Hyaline Casts (Auto) 3, Urine Bacteria (Auto) 2+H, Urine Squamous Epithelial Cells 0, Urine Mucus (Auto) SMALL, Urine Sperm (Auto) , Anion Gap 5L, Glomerular Filtration Rate 46.2, Lactic Acid Level 1.8, Calcium Level 8.8, Magnesium Level 1.7L, Total Bilirubin 1.3H, Direct Bilirubin 0.3H, Gamma Glutamyl Transferase 15, Aspartate Amino Transf (AST/SGOT) 10, Alanine Aminotransferase (ALT/SGPT) 10L, Alkaline Phosphatase 73, C-Reactive Protein, Quantitative 6.02H, VZ-Inn-S-Type N atriuretic Peptide 3290H, Total Protein 6.1L, Albumin 2.9L, Albumin/Globulin Ratio 0.9L, Lipase 1828H, Monoscreen NEGATIVE 09/01/20 22:24: Bedside Glucose (Misc Panel) 190H 09/01/20 22:26: Coronavirus (COVID-19)(PCR) NEGATIVE, Influenza Type A (RT-PCR) NEGATIVE, Influenza Type B (RT-PCR) NEGATIVE, Respiratory Syncytial Virus (PCR) NEGATIVE 09/01/20 22:57: Prothrombin Time 14.0, Prothromb Time International Ratio 1.06, Activated Partial Thromboplast Time 26.7 09/02/20 01:12: Bedside Glucose (Misc Panel) 217H 09/02/20 05:24: Immature Granulocyte % (Auto) 0.5, Neutrophils (%) (Auto) 60.4, Lymphocytes (%) (Auto) 19.7L, Monocytes (%) (Auto) 14.4H, Eosinophils (%) (Auto) 4.1H, Basophils (%) (Auto) 0.9, Neutrophils # (Auto) 3.5, Lymphocytes # (Auto) 1.2L, Monocytes # (Auto) 0.8, Eosinophils # (Auto) 0.2, Basophils # (Auto) 0.1, Nucleated Red Blood Cells % (auto) 0.0, Anion Gap 3L, Glomerular Filtration Rate 52.0, Calcium Level 8.1L, Magnesium Level 2.1, Total Bilirubin 0.7, Aspartate Amino Transf (AST/SGOT) 10, Alanine Aminotransferase (ALT/SGPT) 9L, Alkaline Phosphatase 59, Total Protein 5.6L, Albumin 2.5L, Albumin/Globulin Ratio 0.8L, Triglycerides Level 169H, Lipase 1578H 09/02/20 06:06: Bedside Glucose (Misc Panel) 142H 09/02/20 12:08: Bedside Glucose (Misc Panel) 165H CBC/BMP Laboratory Tests 09/01/20 18:36 09/02/20 05:24 Microbiology Microbiology 09/01/20 Urine Culture, Received Pending ABDIRAHMAN MADDEN DO Sep 02, 2020 13:53
[2020-09-02 14:00] VITALS: BP 154/78
[2020-09-02] MEDS: PROPRANOLOL 80 MG LA CAP PO SCH (20:49)
[2020-09-02 22:00] VITALS: BP 145/73
[2020-09-03] MEDS ORDERED: HumaLOG INSULIN (NovoLOG) PER UNIT SC SCH (00:20)
[2020-09-03] MEDS: metroNIDAZOLE 500 MG in IV 1 EA IV SCH (05:05)
--- NOTE | 2020-09-03 05:11 | IPNPDOC ---
Text Note Date of Service The patient was seen on 09/03/20. NOTE Reviewed (personally) patients chest x-ray which shows left lobe atelectasis. He r O2 saturation decreased to 92% on RA. Ordered supplemental oxygen 2 L per N/C humidified with goal of Oxygen saturation >94%. Will continue to monitor patient. VS,Fishbone, I+O VS, Fishbone, I+O Laboratory Tests 09/02/20 05:24 Vital Signs Date Time Temp Pulse Resp B/P (MAP) Pulse Ox O2 Delivery O2 Flow Rate FiO2 09/02/20 22:00 99.0 80 18 145/73 (97) 92 09/02/20 14:00 Room Air I&O- Last 24 Hours up to 6 AM 09/03/20 06:00 Intake Total 1300 ml Output Total 700 ml Balance 600 ml MIKE GORDILLO Sep 03, 2020 05:11
[2020-09-03 06:00] VITALS: BP 132/67
[2020-09-03] MEDS ORDERED: FUROSEMIDE 20MG/2ML VIAL (J1940) IV ONE (06:00)
[2020-09-03 06:07] LABS: HEMATOCRIT 31.7 % (36.0-47.0); HEMOGLOBIN 9.9 g/dl (12.0-15.5); MEAN CORPUSCULAR HEMOGLOBIN 27.4 pg (27.0-33.0); MEAN CORPUSCULAR HGB CONC 31.2 g/dl (32.0-36.5); MEAN CORPUSCULAR VOLUME 87.8 fl (80.0-96.0); PLATELET COUNT, AUTOMATED 103 10^3/uL (150-450); RED BLOOD COUNT 3.61 10^6/uL (4.00-5.40); WHITE BLOOD COUNT 8.5 10^3/uL (4.0-10.0)
[2020-09-03 06:33] LABS: ERYTHROCYTE SEDIMENTATION RATE 22 mm/hr (0-30)
[2020-09-03 06:40] LABS: C REACTIVE PROTEIN QUANTITATIV 7.26 MG/DL (0.00-0.30); CALCIUM LEVEL 7.9 MG/DL (8.8-10.2); CREATININE FOR GFR 1.12 MG/DL (0.55-1.30); GLOMERULAR FILTRATION RATE 51.5 (>45); MAGNESIUM LEVEL 1.9 MG/DL (1.8-2.4); POTASSIUM SERUM 4.2 MEQ/L (3.5-5.1)
[2020-09-03] MEDS: NS 1,000 ML IV SCH ×2 (08:39→17:17)
[2020-09-03] MEDS: ENOXAPARIN 40MG/0.4ML SYRINGE (J1650 PER 10MG) SC SCH (08:39)
[2020-09-03] MEDS: HumaLOG INSULIN (NovoLOG) PER UNIT SC SCH ×4 (08:39→19:51)
[2020-09-03] MEDS: FUROSEMIDE 40 MG TAB PO SCH ×2 (08:39→17:17)
--- NOTE | 2020-09-03 10:09 | ECHO ---
ECHOCARDIOGRAM DATE OF PROCEDURE: 09/02/2020 Age: Gender: Height: Weight: REFERRING PROVIDER: ROSALBA Vieira. PATIENT LOCATION: Room 4201. REASON FOR STUDY: Shortness of breath. 2D MEASUREMENTS: IVS 1.2 cm LV 5.1 cm LVPW 1.2 cm Aortic root 2.8 cm LA 3.5 cm IVC 2.1 cm DOPPLER MEASUREMENT Peak velocity across the aortic valve 1.6 m/s Peak velocity across the LVOT 0.6 m/s Peak gradient across the aortic valve 11 mmHg Mitral E 0.6 Mitral A 0.8 with a ratio of 0.8 Maximum tricuspid valve velocity 2.3 m/s 2D COMMENTS: 1. Normal left ventricular size and wall thickness but with a mildly depressed global left ventricular systolic function. The estimated left ventricular systolic ejection fraction is 45 to 50%. 2. Normal left atrium. Normal right atrium and right ventricle. 3. The atrial septum appeared to be normal without evidence of defect or shunt. 4. Normal aortic root. 5. No pericardial effusion seen. 6. Mildly calcified aortic valve with normal leaflet excursion. Mildly calcified mitral annulus with normal anterior mitral valve leaflet motion. Normal tricuspid valve. The pulmonic valve and proximal pulmonary artery branches were not well visualized. 7. The inferior vena cava was mildly enlarged, central venous pressure may be elevated. Abnormal relaxation pattern was noted across the mitral valve leaflets as well as the mitral valve annulus consistent with features of grade 1 left ventricular diastolic dysfunction. IMPRESSION: 1. Mildly depressed global left ventricular systolic function with global hypokinesis. There were some features of left ventricular diastolic dysfunction manifested by abnormal relaxation, grade 1. 2. Aortic valve sclerosis without stenosis or aortic regurgitation. 3. Mitral annulus calcification with trace mitral regurgitation. 4. Mild tricuspid regurgitation with mild pulmonary hypertension. 5. The inferior vena cava was mildly enlarged, central venous pressure mildly elevated.
[2020-09-03] MEDS: CIPROFLOXACIN 400 MG in IV 1 EA IV SCH ×2 (11:33→22:27)
--- NOTE | 2020-09-03 12:34 | IPNPDOC ---
Subjective Date Seen The patient was seen on 09/03/20. Subjective Chief Complaint/HPI Mrs. Lunsford is a 69 year old female with DM type 2, hypertension, and hyperlipidemia who presents with abdominal pain and found to have acute panc reatitis. Yesterday, she has mild nausea and pain with clear liquid diet. Otherwise, overnight, she was dyspneic. CXR demonstrated atelectasis. Patient's Lasix was restarted. This morning, patient was still on oxygen. Denies chest pain. Patient tells me that she has been on Lasix and losartan for a long time. Objective Physical Examination General Exam: Positive: Alert, Cooperative, No Acute Distress Eye Exam: Positive: PERRLA, Conjunctiva & lids normal ENT Exam: Positive: Atraumatic, Tongue Midline Neck Exam: Positive: Supple Chest Exam: Positive: Diminished Heart Exam: Positive: Rate Normal, Regular Rhythm, Normal S1, Normal S2 Abdomen Exam: Positive: Normal bowel sounds, Tenderness (LUQ 5-6/10 pain on palpation) Extremity Exam: Positive: Edema (BLE), Swelling (Edema bilateral lower legs +3 with Left > Right) Neuro Exam: Positive: Normal Speech, Cranial Nerves 3-12 NL Psych Exam: Positive: Mental status NL, Mood NL Assessment /Plan Assessment Mrs. Lunsford is a 69 year old female with DM type 2, hypertension, and hyperlipidemia who presents with abdominal pain and found to have acute pancreatitis. Pancreatitis may be secondary to Klebsiella UTI. Continue Ciprofloxacin. Patient had some nausea and abdominal pain with clear liquid diet yesterday. Will continue clear liquid diet today. Plan/VTE VTE Prophylaxis Ordered?: Yes VTE Exclusion Mechanical Proph: N/A:VTE Prophy Ordered VTE Exclusion Pharmacological: N/A:VTE Prophy Ordered Plan 1. Acute pancreatitis -Triglycerides mildly elevated. Patient denies alcohol. CT abd/pelvis did not demonstrate any stones -Possibly secondary to UTI -Continue antibiotics -Continue IVF and pain control -Continue clear liquid diet 2. Klebsiella UTI -Sensitive to levofloxacin -Can continue ciprofloxacin -Ciprofloxacin day 2 3. Diabetes mellitus type 2 -Hold metformin -Continue sliding scale insulin 4. Stasis dermatitis -Not tender, but is warm, red, and flaky -Unlikely to be cellulitis -Leg elevation and compression stockings -Hold diuretics at this time 5. Hypertension -Patient's blood pressure is slightly elevated, but most likely due to IVF -Will add back amlodipine and propranolol -Hold spironolactone, losartan, and furosemide (Studies shows diuretics and losartan can cause pancreatitis) 6. DVT ppx -Lovenox Disposition: Pending ability to tolerate a solid diet VS, I&O, 24H, Fishbone Vital Signs/I&O Vital Signs Date Time Temp Pulse Resp B/P (MAP) Pulse Ox O2 Delivery O2 Flow Rate FiO2 09/03/20 06:00 97.0 68 18 132/67 (88) 98 Nasal Cannula 2.0 I&O- Last 24 Hours up to 6 AM 09/03/20 05:59 Intake Total 1800 ml Output Total 700 ml Balance 1100 ml Laboratory Data 24H LABS Laboratory Tests 2 09/02/20 17:58: Bedside Glucose (Misc Panel) 113 09/03/20 05:19: Nucleated Red Blood Cells % (auto) 0.0, Erythrocyte Sedimentation Rate 22, Anion Gap 6L, Glomerular Filtration Rate 51.5, Estimated Mean Plasma Glucose 183H, Hemoglobin A1c 8.0, Calcium Level 7.9L, Magnesium Level 1.9, C-Reactive Protein, Quantitative 7.26H, SJ-Nfm-C-Type Natriuretic Peptide 2394H, Lipase 1305H 09/03/20 11:37: Bedside Glucose (Misc Panel) 172H CBC/BMP Laboratory Tests 09/03/20 05:19 Microbiology Microbiology 09/01/20 Urine Culture - Final, Complete Klebsiella Pneumoniae ABDIRAHMAN MADDEN DO Sep 03, 2020 12:34
[2020-09-03 14:00] VITALS: BP 129/70
[2020-09-03] MEDS: PROPRANOLOL 80 MG LA CAP PO SCH (20:07)
[2020-09-03] MEDS: ONDANSETRON 4MG/2ML VIAL IV PRN (20:14)
[2020-09-03 22:00] VITALS: BP 146/68
[2020-09-03] MEDS: RAMELTEON 8 MG TAB (ROZEREM) PO PRN (23:26)
[2020-09-04] MEDS: NS 1,000 ML IV SCH (02:56)
[2020-09-04 04:58] LABS: HEMATOCRIT 32.5 % (36.0-47.0); HEMOGLOBIN 10.2 g/dl (12.0-15.5); MEAN CORPUSCULAR HEMOGLOBIN 27.7 pg (27.0-33.0); MEAN CORPUSCULAR HGB CONC 31.4 g/dl (32.0-36.5); MEAN CORPUSCULAR VOLUME 88.3 fl (80.0-96.0); PLATELET COUNT, AUTOMATED 111 10^3/uL (150-450); RED BLOOD COUNT 3.68 10^6/uL (4.00-5.40); WHITE BLOOD COUNT 6.8 10^3/uL (4.0-10.0)
[2020-09-04 05:19] LABS: CALCIUM LEVEL 7.2 MG/DL (8.8-10.2); CREATININE FOR GFR 1.06 MG/DL (0.55-1.30); GLOMERULAR FILTRATION RATE 54.9 (>45); POTASSIUM SERUM 3.9 MEQ/L (3.5-5.1)
[2020-09-04 06:00] VITALS: BP 142/65
[2020-09-04] MEDS: FUROSEMIDE 40 MG TAB PO SCH (08:22)
[2020-09-04] MEDS: ENOXAPARIN 40MG/0.4ML SYRINGE (J1650 PER 10MG) SC SCH (08:22)
[2020-09-04] MEDS: HumaLOG INSULIN (NovoLOG) PER UNIT SC SCH ×4 (08:23→20:41)
[2020-09-04] MEDS ORDERED: IPRATROPIUM 0.5MG/ALBUTEROL 2.5MG INH SOL UD 3ML (DUONEB) NEB PRN (08:55)
--- NOTE | 2020-09-04 09:23 | REP ---
INDICATION: dyspnea COMPARISON: 09/01/2020 TECHNIQUE: Portable AP view of the chest FINDINGS: There is new collapse to the left lower lobe with moderate layering left effusion. Remainder of the lung jane appear well aerated and essentially clear. Cardiac silhouette is within normal limits for portable technique and stable. Old left rib fractures noted. No pneumothorax. IMPRESSION: New collapse to the left lower lobe with moderate left effusion <Electronically signed by Armen Oro > 09/04/20 0919
--- NOTE | 2020-09-04 11:17 | REP ---
INDICATION: Effusion, collapsed lung? COMPARISON: None TECHNIQUE: Axial noncontrast images from the thoracic inlet to the upper abdomen with coronal and sagittal reformations. This CT examination was performed using the following dose reduction techniques: Automated exposure control, adjustment of mA and/or kv according to the patient's size, and use of iterative reconstruction technique. FINDINGS: Moderate/Large left pleural effusion with consolidation/partial collapse to the left lower lobe is consistent with findings on recent x-ray. Right hemithorax demonstrates very minimal amount of basilar atelectasis. No pneumothorax. Mediastinum demonstrates minimal atherosclerotic changes to the thoracic aorta and coronary arteries. Mild cardiomegaly. No pericardial effusion. No obvious adenopathy. Musculoskeletal structures are intact. IMPRESSION: Moderate/large left pleural effusion with consolidation/partial collapse to the left lower lobe. <Electronically signed by Armen Oro > 09/04/20 1112
[2020-09-04] MEDS: CIPROFLOXACIN 400 MG in IV 1 EA IV SCH ×2 (11:45→22:04)
[2020-09-04 14:00] VITALS: BP 150/77
--- NOTE | 2020-09-04 14:31 | IPNPDOC ---
Subjective Date Seen The patient was seen on 09/04/20. Subjective Chief Complaint/HPI Mrs. Lunsford is a 69 year old female with DM type 2, hypertension, and hyperlipidemia who presents with abdominal pain and found to have acute panc reatitis. Yesterday, she continued with her clear liquid diet, but still has episodes of nausea without vomiting. Otherwise, she had crackles in her left lower lung. She was found to have a moderate/large left pleural effusion with compression of the left lung. She is currently saturating well at room air. Will discontinue fluids, increase diuretics, and monitor. Anticipate patient may need a thoracentesis on Sunday. Objective Physical Examination General Exam: Positive: Alert, Cooperative Eye Exam: Positive: Conjunctiva & lids normal; Negative: Sclera icteric ENT Exam: Positive: Atraumatic, Tongue Midline Neck Exam: Positive: Supple Chest Exam: Positive: Diminished Heart Exam: Positive: Rate Normal, Regular Rhythm, Normal S1, Normal S2 Abdomen Exam: Positive: Normal bowel sounds, Tenderness (LUQ 5-6/10 pain on palpation) Extremity Exam: Positive: Edema (BLE), Swelling (Edema bilateral lower legs +3 with Left > Right) Neuro Exam: Positive: Normal Speech, Cranial Nerves 3-12 NL Psych Exam: Positive: Mental status NL, Mood NL Assessment /Plan Assessment Mrs. Lunsford is a 69 year old female with DM type 2, hypertension, and hyperlipidemia who presents with abdominal pain and found to have acute pancreat itis. Pancreatitis may be secondary to Klebsiella UTI. Continue Ciprofloxacin. Patient had some nausea and abdominal pain with clear liquid diet yesterday. Will continue clear liquid diet today. She was found to have left pleural effusion. IV fluids were discontinued and IV Lasix will be given. Patient is stable. Will need to discuss with patient about a thoracentesis on Sunday. Plan/VTE VTE Prophylaxis Ordered?: Yes VTE Exclusion Mechanical Proph: N/A:VTE Prophy Ordered VTE Exclusion Pharmacological: N/A:VTE Prophy Ordered Plan 1. Acute pancreatitis -Triglycerides mildly elevated. Patient denies alcohol. CT abd/pelvis did not demonstrate any stones -Possibly secondary to UTI -Continue antibiotics -Continue pain control -Continue clear liquid diet 2. Klebsiella UTI -Sensitive to levofloxacin -Can continue ciprofloxacin -Ciprofloxacin day 3 3. Diabetes mellitus type 2 -Hold metformin -Continue sliding scale insulin 4. Stasis dermatitis -Not tender, but is warm, red, and flaky -Unlikely to be cellulitis -Leg elevation and compression stockings 5. Hypertension -Patient's blood pressure is slightly elevated, but most likely due to IVF -Will add back amlodipine and propranolol -Hold spironolactone and losartan. May need to restart if blood pressure increases. 6. Moderate/large left pleural effusion -Stop IVF -IV Lasix BID -Will discuss thoracentesis with patient. Anticipate thoracentesis for Sunday. 7. DVT ppx -Lovenox Disposition: Pending ability to tolerate a solid diet VS, I&O, 24H, Fishbone Vital Signs/I&O Vital Signs Date Time Temp Pulse Resp B/P (MAP) Pulse Ox O2 Delivery O2 Flow Rate FiO2 09/04/20 14:00 97.6 62 21 150/77 (101) 95 Room Air 09/03/20 14:00 2.0 I&O- Last 24 Hours up to 6 AM 09/04/20 06:00 Intake Total 1875 ml Output Total 2050 ml Balance -175 ml Laboratory Data 24H LABS Laboratory Tests 2 09/03/20 16:50: Bedside Glucose (Misc Panel) 137H 09/03/20 19:34: Bedside Glucose (Misc Panel) 161H 09/04/20 04:41: Nucleated Red Blood Cells % (auto) 0.0, Anion Gap 7L, Glomerular Filtration Rate 54.9, Calcium Level 7.2L, Lipase 1182H 09/04/20 11:23: Bedside Glucose (Misc Panel) 187H CBC/BMP Laboratory Tests 09/04/20 04:41 Microbiology Microbiology 09/01/20 Urine Culture - Final, Complete Klebsiella Pneumoniae ABDIRAHMAN MADDEN DO Sep 04, 2020 14:31
[2020-09-04] MEDS: FUROSEMIDE 40MG/4ML VIAL (J1940) IV SCH (17:41)
[2020-09-04] MEDS: PROPRANOLOL 80 MG LA CAP PO SCH (20:55)
[2020-09-04 22:00] VITALS: BP 145/72
[2020-09-04] MEDS: RAMELTEON 8 MG TAB (ROZEREM) PO PRN (23:24)
[2020-09-05 05:37] LABS: HEMATOCRIT 32.5 % (36.0-47.0); HEMOGLOBIN 10.1 g/dl (12.0-15.5); MEAN CORPUSCULAR HEMOGLOBIN 27.1 pg (27.0-33.0); MEAN CORPUSCULAR HGB CONC 31.1 g/dl (32.0-36.5); MEAN CORPUSCULAR VOLUME 87.1 fl (80.0-96.0); PLATELET COUNT, AUTOMATED 113 10^3/uL (150-450); RED BLOOD COUNT 3.73 10^6/uL (4.00-5.40); WHITE BLOOD COUNT 6.4 10^3/uL (4.0-10.0)
[2020-09-05 06:00] VITALS: BP 134/63
[2020-09-05 06:09] LABS: BLOOD UREA NITROGEN 15 MG/DL (7-18); CALCIUM LEVEL 7.3 MG/DL (8.8-10.2); CARBON DIOXIDE LEVEL 28 MEQ/L (21-32); CHLORIDE LEVEL 103 MEQ/L (98-107); CREATININE FOR GFR 0.94 MG/DL (0.55-1.30); GLOMERULAR FILTRATION RATE > 60.0 (>45); GLUCOSE, FASTING 168 MG/DL (70-100); POTASSIUM SERUM 3.8 MEQ/L (3.5-5.1); SODIUM LEVEL 139 MEQ/L (136-145)
[2020-09-05] MEDS: FUROSEMIDE 40MG/4ML VIAL (J1940) IV SCH ×2 (08:24→17:05)
[2020-09-05] MEDS: ENOXAPARIN 40MG/0.4ML SYRINGE (J1650 PER 10MG) SC SCH (08:24)
[2020-09-05] MEDS: HumaLOG INSULIN (NovoLOG) PER UNIT SC SCH ×4 (08:24→20:00)
[2020-09-05 08:51] LABS: ALBUMIN 2.5 GM/DL (3.2-5.2)
[2020-09-05] MEDS: CIPROFLOXACIN 400 MG in IV 1 EA IV SCH ×2 (12:10→22:36)
--- NOTE | 2020-09-05 13:04 | IPNPDOC ---
Subjective Date Seen The patient was seen on 09/05/20. Subjective Chief Complaint/HPI Mrs. Lunsford is a 69 year old female with DM type 2, hypertension, and hyperlipidemia who presents with abdominal pain and found to have acute panc reatitis. This morning, she denies any chest pain or dyspnea. She still had some queasiness with her clear liquid diet, but she feels that she can try full liquids. Otherwise we talked about possible thoracentesis on Sunday, and she was agreeable to procedure. Objective Physical Examination General Exam: Positive: Alert, Cooperative Eye Exam: Positive: Conjunctiva & lids normal; Negative: Sclera icteric ENT Exam: Positive: Atraumatic, Tongue Midline Neck Exam: Positive: Supple Chest Exam: Positive: Diminished Heart Exam: Positive: Rate Normal, Regular Rhythm, Normal S1, Normal S2 Abdomen Exam: Positive: Normal bowel sounds, Tenderness (LUQ 5-6/10 pain on palpation) Extremity Exam: Positive: Edema (BLE), Swelling (Edema bilateral lower legs +3 with Left > Right) Neuro Exam: Positive: Normal Speech, Cranial Nerves 3-12 NL Psych Exam: Positive: Mental status NL, Mood NL Assessment /Plan Assessment Mrs. Lunsford is a 69 year old female with DM type 2, hypertension, and hyperlipidemia who presents with abdominal pain and found to have acute pancreatitis. Pancreatitis may be secondary to Klebsiella UTI. Continue Ciprofloxacin. She still has some queasiness with clear liquids, but she wants to try full liquids. We'll advance to full liquids. She was found to have left pleural effusion. IV fluids were discontinued and IV Lasix will be given. Patient is stable. Plan to have thoracentesis on Sunday. Plan/VTE VTE Prophylaxis Ordered?: Yes VTE Exclusion Mechanical Proph: N/A:VTE Prophy Ordered VTE Exclusion Pharmacological: N/A:VTE Prophy Ordered Plan 1. Acute pancreatitis -Triglycerides mildly elevated. Patient denies alcohol. CT abd/pelvis did not demonstrate any stones -Possibly secondary to UTI -Continue antibiotics -Continue pain control -Advance to full liquid diet 2. Klebsiella UTI -Sensitive to levofloxacin -Can continue ciprofloxacin -Ciprofloxacin day 4 3. Diabetes mellitus type 2 -Hold metformin -Continue sliding scale insulin 4. Stasis dermatitis -Not tender, but is warm, red, and flaky -Unlikely to be cellulitis -Leg elevation and compression stockings 5. Hypertension -Patient's blood pressure is slightly elevated, but most likely due to IVF -Will add back amlodipine and propranolol -Hold spironolactone and losartan. May need to restart if blood pressure increases. 6. Moderate/large left pleural effusion -Stop IVF -IV Lasix BID -Will discuss thoracentesis with patient. Anticipate thoracentesis for Sunday. Although most likely iatrogenic, it is strange that the pleural effusion is unilateral instead of bilateral 7. DVT ppx -Lovenox Disposition: Pending ability to tolerate a solid diet. Planning for thoracentesis on Sunday VS, I&O, 24H, Fishbone Vital Signs/I&O Vital Signs Date Time Temp Pulse Resp B/P (MAP) Pulse Ox O2 Delivery O2 Flow Rate FiO2 09/05/20 06:00 97.4 57 18 134/63 (86) 96 Room Air 09/03/20 14:00 2.0 I&O- Last 24 Hours up to 6 AM 09/05/20 06:00 Intake Total 3225 ml Output Total 2705 ml Balance 520 ml Laboratory Data 24H LABS Laboratory Tests 2 09/04/20 16:52: Bedside Glucose (Misc Panel) 157H 09/04/20 19:34: Bedside Glucose (Misc Panel) 146H 09/05/20 05:04: Nucleated Red Blood Cells % (auto) 0.0, Anion Gap 8, Glomerular Filtration Rate > 60.0, Calcium Level 7.3L, Albumin 2.5L 09/05/20 11:10: Bedside Glucose (Misc Panel) 242H CBC/BMP Laboratory Tests 09/05/20 05:04 Microbiology Microbiology 09/01/20 Urine Culture - Final, Complete Klebsiella Pneumoniae ABDIRAHMAN MADDEN DO Sep 05, 2020 13:04
[2020-09-05 14:00] VITALS: BP 140/68
[2020-09-05] MEDS: PROPRANOLOL 80 MG LA CAP PO SCH (19:59)
[2020-09-05 22:00] VITALS: BP 151/71
[2020-09-06 06:00] VITALS: BP 119/58
[2020-09-06 06:11] LABS: HEMATOCRIT 32.3 % (36.0-47.0); HEMOGLOBIN 10.1 g/dl (12.0-15.5); MEAN CORPUSCULAR HEMOGLOBIN 27.2 pg (27.0-33.0); MEAN CORPUSCULAR HGB CONC 31.3 g/dl (32.0-36.5); MEAN CORPUSCULAR VOLUME 87.1 fl (80.0-96.0); PLATELET COUNT, AUTOMATED 127 10^3/uL (150-450); RED BLOOD COUNT 3.71 10^6/uL (4.00-5.40); WHITE BLOOD COUNT 6.3 10^3/uL (4.0-10.0)
[2020-09-06 06:38] LABS: INR 1.06; PARTIAL THROMBOPLASTIN TIME 28.9 SECONDS (24.2-38.5)
[2020-09-06 06:45] LABS: BLOOD UREA NITROGEN 15 MG/DL (7-18); CALCIUM LEVEL 7.8 MG/DL (8.8-10.2); CARBON DIOXIDE LEVEL 29 MEQ/L (21-32); CHLORIDE LEVEL 101 MEQ/L (98-107); CREATININE FOR GFR 0.94 MG/DL (0.55-1.30); GLOMERULAR FILTRATION RATE > 60.0 (>45); GLUCOSE, FASTING 212 MG/DL (70-100); POTASSIUM SERUM 3.7 MEQ/L (3.5-5.1); SODIUM LEVEL 138 MEQ/L (136-145)
[2020-09-06 07:52] LABS: LDH LACTATE DEHYDROGENASE 389 U/L (84-246); TOTAL PROTEIN 4.9 GM/DL (6.4-8.2)
[2020-09-06] MEDS: CIPROFLOXACIN 500MG TABLET PO SCH ×2 (08:33→18:32)
[2020-09-06] MEDS: HumaLOG INSULIN (NovoLOG) PER UNIT SC SCH ×4 (08:34→20:21)
[2020-09-06] MEDS: FUROSEMIDE 40MG/4ML VIAL (J1940) IV SCH ×3 (08:34→18:32)
--- NOTE | 2020-09-06 09:50 | IPNPDOC ---
Subjective Date Seen The patient was seen on 09/06/20. Subjective Chief Complaint/HPI Mrs. Lunsford is a 69 year old female with DM type 2, hypertension, and hyperlipidemia who presents with abdominal pain and found to have acute panc reatitis. This morning, she feels fatigued. Otherwise denies chest pain or worsening dyspnea. Anticipate diagnostic thoracentesis today. Objective Physical Examination General Exam: Positive: Alert, Cooperative Eye Exam: Positive: Conjunctiva & lids normal; Negative: Sclera icteric ENT Exam: Positive: Atraumatic, Tongue Midline Neck Exam: Positive: Supple Chest Exam: Positive: Diminished (on left lower lobe) Heart Exam: Positive: Rate Normal, Regular Rhythm, Normal S1, Normal S2 Abdomen Exam: Positive: Normal bowel sounds, Tenderness (LUQ 5-6/10 pain on palpation) Extremity Exam: Positive: Edema (BLE), Swelling (Edema bilateral lower legs +3 with Left > Right) Neuro Exam: Positive: Normal Speech, Cranial Nerves 3-12 NL Psych Exam: Positive: Mental status NL, Mood NL Assessment /Plan Assessment Mrs. Lunsford is a 69 year old female with DM type 2, hypertension, and hyperlipidemia who presents with abdominal pain and found to have acute pancreatitis. Pancreatitis may be secondary to Klebsiella UTI. Continue Ciprofloxacin. She still has some queasiness with clear liquids, but she wants to try full liquids. We'll advance to full liquids. She was found to have left pleural effusion. IV fluids were discontinued and IV Lasix will be given. Patient is stable. Anticipate diagnostic thoracentesis today. Plan/VTE VTE Prophylaxis Ordered?: Yes VTE Exclusion Mechanical Proph: N/A:VTE Prophy Ordered VTE Exclusion Pharmacological: N/A:VTE Prophy Ordered Plan 1. Acute pancreatitis -Triglycerides mildly elevated. Patient denies alcohol. CT abd/pelvis did not demonstrate any stones -Possibly secondary to UTI -Continue antibiotics -Continue pain control -Advance to full liquid diet 2. Klebsiella UTI -Sensitive to levofloxacin -Can continue ciprofloxacin -Ciprofloxacin day 5 3. Diabetes mellitus type 2 -Hold metformin -Continue sliding scale insulin 4. Stasis dermatitis -Not tender, but is warm, red, and flaky -Unlikely to be cellulitis -Leg elevation and compression stockings 5. Hypertension -Patient's blood pressure is slightly elevated, but most likely due to IVF -Restarted amlodipine and propranolol -Hold spironolactone and losartan. May need to restart if blood pressure increases. 6. Moderate/large left pleural effusion -Stop IVF -IV Lasix BID -Will discuss thoracentesis with patient. Anticipate diagnostic thoracentesis today. Although most likely iatrogenic, it is strange that the pleural effusion is unilateral instead of bilateral. Will roder diagnost 7. DVT ppx -Last dose Lovenox was given yesterday. On hold this morning for anticipated thoracentesis Disposition: Pending ability to tolerate a solid diet. Planning for diagnostic thoracentesis today VS, I&O, 24H, Fishbone Vital Signs/I&O Vital Signs Date Time Temp Pulse Resp B/P (MAP) Pulse Ox O2 Delivery O2 Flow Rate FiO2 09/06/20 06:00 97.6 54 17 119/58 (78) 96 Nasal Cannula 2.0 I&O- Last 24 Hours up to 6 AM 09/06/20 05:59 Intake Total 1280 ml Output Total 1475 ml Balance -195 ml Laboratory Data 24H LABS Laboratory Tests 2 09/05/20 11:10: Bedside Glucose (Misc Panel) 242H 09/05/20 16:35: Bedside Glucose (Misc Panel) 165H 09/05/20 19:39: Bedside Glucose (Misc Panel) 225H 09/06/20 05:24: Nucleated Red Blood Cells % (auto) 0.0, Prothrombin Time 14.0, Prothromb Time International Ratio 1.06, Activated Partial Thromboplast Time 28.9, Anion Gap 8, Glomerular Filtration Rate > 60.0, Calcium Level 7.8L, Lactate Dehydrogenase 389H, Total Protein 4.9L CBC/BMP Laboratory Tests 09/06/20 05:24 Microbiology Microbiology 09/01/20 Urine Culture - Final, Complete Klebsiella Pneumoniae ABDIRAHMAN MADDEN DO Sep 06, 2020 09:50
[2020-09-06] MEDS ORDERED: LIDOCAINE 1% MDV 20ML VIAL As Ordered ONE (10:54)
[2020-09-06] MEDS ORDERED: SODIUM BICARBONATE 8.4% INJ 50MEQ 50 ML VIAL As Ordered ONE (10:54)
[2020-09-06 11:57] LABS: PH BODY FLUID 7.646 UNITS (NOT ESTABLISHED); SOURCE, BODY FLUID pH PLEURAL
[2020-09-06 12:03] LABS: APPEARANCE, BODY FLUID HAZY (CLEAR); PLEURAL FL COLOR ORANGE (COLORLESS); SOURCE, BODY FLUID PLEURAL
--- NOTE | 2020-09-06 12:04 | REP ---
INDICATION: POST THORA, 2 VIEW. COMPARISON: 09/01/2020, 09/04/2020. TECHNIQUE: Two views chest performed. FINDINGS: There is no pneumothorax status post left thoracentesis. There is a decreased amount of left pleural fluid, with mild residual. The heart and mediastinum appear unchanged. The right lung is clear. IMPRESSION: No pneumothorax status post left thoracentesis. <Electronically signed by Rick Matthews > 09/06/20 1200
[2020-09-06 12:30] VITALS: BP 137/68
[2020-09-06 12:34] LABS: AMYLASE, BODY FLUID 46 U/L (NOT ESTABLISHED); CHOLESTEROL, BODY FLUID < 50 MG/DL (NOT ESTABLISHED); LDH, BODY FLUID 309 U/L (NOT ESTABLISHED); SOURCE, BODY FLUID ALBUMIN PLEURAL; SOURCE, BODY FLUID AMYLASE PLEURAL; SOURCE, BODY FLUID CHOL PLEURAL; SOURCE, BODY FLUID GLUCOSE PLEURAL; SOURCE, BODY FLUID LDH PLEURAL; SOURCE, BODY FLUID TOT PROTEIN PLEURAL; SOURCE, BODY FLUID TRIG PLEURAL; TOTAL PROTEIN, BODY FLUID 2.7 G/DL (NOT ESTABLISHED); TRIGLYCERIDE, BODY FLUID 39 MG/DL (NOT ESTABLISHED)
[2020-09-06 13:04] VITALS: BP 133/62
--- NOTE | 2020-09-06 18:05 | REP ---
INDICATION: Left pleural effusion The patient has a history of left pleural effusion COMPARISON: None. TECHNIQUE: The procedure was performed by Meg Stephens [facility], under the direct supervision of Dr. Matthews The risks and benefits of the procedure were explained to the patient and an informed consent was obtained both verbally and written. Directly prior to the start of the procedure a formal time-out was completed in the procedure room. Pleural fluid in left lung zone was localized using ultrasound guidance. The skin was prepped and draped in a sterile fashion. Six ML of buffered lidocaine was used as a local anesthetic. Using ultrasound guidance an 8-[place] multi side-hole catheter was inserted using trocar technique. FINDINGS: Five hundred fifty mL of yonatan colored fluid was withdrawn and sent to the laboratory for further analysis. The patient tolerated the procedure well and there were no immediate complications. After the appropriate amount of monitored convalescence, the patient was discharged from the department. IMPRESSION: Ultrasound-guided thoracentesis with removal of 550 mL pleural fluid. <Electronically signed by Meg Stephens > 09/06/20 1620 <Electronically signed by Rick Matthews > 09/06/20 1801
[2020-09-06] MEDS: PROPRANOLOL 80 MG LA CAP PO SCH (20:18)
[2020-09-06] MEDS: RAMELTEON 8 MG TAB (ROZEREM) PO PRN (20:20)
[2020-09-06 22:00] VITALS: BP 131/60
[2020-09-07] MEDS: CIPROFLOXACIN 500MG TABLET PO SCH ×2 (05:10→17:24)
[2020-09-07 05:44] LABS: HEMATOCRIT 33.4 % (36.0-47.0); HEMOGLOBIN 10.7 g/dl (12.0-15.5); MEAN CORPUSCULAR HEMOGLOBIN 27.7 pg (27.0-33.0); MEAN CORPUSCULAR VOLUME 86.5 fl (80.0-96.0); PLATELET COUNT, AUTOMATED 143 10^3/uL (150-450); RED BLOOD COUNT 3.86 10^6/uL (4.00-5.40); WHITE BLOOD COUNT 7.4 10^3/uL (4.0-10.0)
[2020-09-07 06:00] VITALS: BP 140/53
[2020-09-07 06:04] LABS: CALCIUM LEVEL 7.7 MG/DL (8.8-10.2); CREATININE FOR GFR 1.03 MG/DL (0.55-1.30); GLOMERULAR FILTRATION RATE 56.7 (>45); POTASSIUM SERUM 3.7 MEQ/L (3.5-5.1)
[2020-09-07] MEDS: ENOXAPARIN 40MG/0.4ML SYRINGE (J1650 PER 10MG) SC SCH (08:30)
[2020-09-07] MEDS: HumaLOG INSULIN (NovoLOG) PER UNIT SC SCH ×4 (08:30→21:00)
[2020-09-07] MEDS: FUROSEMIDE 40MG/4ML VIAL (J1940) IV SCH ×2 (08:31→17:23)
--- NOTE | 2020-09-07 09:54 | REP ---
INDICATION: effusion. COMPARISON: 09/06/2020 as well as other prior exams. TECHNIQUE: Single portable AP view of the chest was performed. FINDINGS: There is a left pleural effusion with adjacent parenchymal opacity. The effusion appears essentially unchanged since the most recent exam. There is mild increase in the parenchymal opacity in the left lower lobe. Right lung remains clear. Heart and mediastinum are unchanged. IMPRESSION: Stable left effusion. Mild increase in adjacent left base atelectasis/infiltrate. <Electronically signed by Rick Matthews > 09/07/20 0945
[2020-09-07 14:00] VITALS: BP 137/53
[2020-09-07] MEDS ORDERED: CALCIUM CARBONATE 500 MG CHEW U/D PO PRN (19:55)
--- NOTE | 2020-09-07 20:51 | REPVR ---
PROCEDURE INFORMATION: Exam: CT Chest Without Contrast; Diagnostic Exam date and time: 09/07/2020 7:59 PM Age: 69 years old Clinical indication: Other: Assess L sided effusion/infiltrate S/P L thoracentesis TECHNIQUE: Imaging protocol: Diagnostic computed tomography of the chest without contrast. 3D rendering (Not supervised by radiologist): MIP and/or 3D reconstructed images were created by the technologist. Radiation optimization: All CT scans at this facility use at least one of these dose optimization techniques: automated exposure control; mA and/or kV adjustment per patient size (includes targeted exams where dose is matched to clinical indication); or iterative reconstruction. COMPARISON: CT Chest without contrast 09/04/2020 10:57 AM FINDINGS: Lungs: Mild scarring at the lung apices. There is left lower lobe airspace disease, at least in part secondary to atelectasis. Pleural spaces: Small left-sided pleural effusion is decreased from prior examination. No visible pneumothorax. Heart: Unremarkable. No cardiomegaly. No pericardial effusion. Aorta: Aortic calcification without aneurysm. Lymph nodes: Unremarkable. No enlarged lymph nodes. Pancreas: Prominence of the pancreas with adjacent infiltration is likewise again demonstrated. Spleen: There is irregular prominence of the spleen with infiltrative changes at the left upper quadrant. This appears similar from prior CT abdomen pelvis dated 09/01/2020 to the degree visualized. Kidneys and ureters: There is right renal atrophy. Bones/joints: There are degenerative changes involving the spine. There are degenerative changes involving the shoulders. Chronic left-sided rib fractures. Soft tissues: Unremarkable. IMPRESSION: 1. Small left-sided pleural effusion is improved from prior examination. 2. Left lower lobe airspace disease is at least in part secondary to atelectasis. Component of pneumonia is not excluded. 3. Findings at the upper abdomen are better evaluated on recent CT of the abdomen and pelvis. Electronically signed by: Sherif White On 09/07/2020 20:50:49 PM
--- NOTE | 2020-09-07 20:58 | IPNPDOC ---
Date Seen The patient was seen on 09/07/20. Progress Note SUBJECTIVE:Mrs. Lunsford is a 69 year old female with DM type 2, hypertension, and hyperlipidemia who presents with abdominal pain and found to have acute pancreatitis. This morning, she feels fatigued. Otherwise denies chest pain or worsening dyspnea. S/p diagnostic thoracentesis. Exhudative. OBJECTIVE PHYSICAL EXAMINATION: VITAL SIGNS: please see below General: NAD, comfortable HEENT: PERRLA, EOMI, sclerae clear Neck: supple, normal ROM, no JVD Respiratory: reduced air entry L lung base. CVS: RRR, normal S1, S2, no murmurs Abdo: soft, no masses, no hepatosplenomegaly, BS+, no rebound tenderness Extremities: no edema, pulses 2+ MSK: no joint deformities, normal ROM Neuro: no focal neuro deficits, moving all 4 extremities, CN2-12 intact. Strength 5/5 in all 4 extremities. No nystagmus. Psych: calm, cooperative, AAO x 3 LABORATORY DATA, IMAGING STUDIES, MICROBIOLOGY: Please see below. Echocardiogram: 1. Mildly depressed global left ventricular systolic function with global hypokinesis. There were some features of left ventricular diastolic dysfunction manifested by abnormal relaxation, grade 1. 2. Aortic valve sclerosis without stenosis or aortic regurgitation. 3. Mitral annulus calcification with trace mitral regurgitation. 4. Mild tricuspid regurgitation with mild pulmonary hypertension. 5. The inferior vena cava was mildly enlarged, central venous pressure mildly elevated. DVT prophylaxis ordered?: lovenox ASSESSMENT AND PLAN: PROBLEMS: 1. Acute pancreatitis -Triglycerides mildly elevated. Patient denies alcohol. CT abd/pelvis did not demonstrate any stones -Possibly secondary to UTI -Continue antibiotics -Continue pain control -Advance to full liquid diet 2. Klebsiella UTI -Sensitive to levofloxacin -Can continue ciprofloxacin -Ciprofloxacin day 6 3. Diabetes mellitus type 2 -Hold metformin -Continue sliding scale insulin 4. Stasis dermatitis -Not tender, but is warm, red, and flaky -Unlikely to be cellulitis -Leg elevation and compression stockings 5. Hypertension -Patient's blood pressure is slightly elevated, but most likely due to IVF -Restarted amlodipine and propranolol -Hold spironolactone and losartan. May need to restart if blood pressure increases. 6. Moderate/large left pleural effusion -Stop IVF -IV Lasix BID - exudative effusion - repeated CT chest, improvement showed - d/w Dr. Tucker, will review CT in am. 7. DVT ppx -lovenox VS, I&O, 24H, Fishbone Vital Signs/I&O Vital Signs Date Time Temp Pulse Resp B/P (MAP) Pulse Ox O2 Delivery O2 Flow Rate FiO2 09/07/20 14:00 97.9 61 17 137/53 (81) 95 Room Air 09/07/20 06:00 2.0 I&O- Last 24 Hours up to 6 AM 09/07/20 06:00 Intake Total 940 ml Output Total 850 ml Balance 90 ml Laboratory Data 24H LABS Laboratory Tests 2 09/07/20 05:27: Nucleated Red Blood Cells % (auto) 0.0, Anion Gap 8, Glomerular Filtration Rate 56.7, Calcium Level 7.7L 09/07/20 11:47: Bedside Glucose (Misc Panel) 229H 09/07/20 16:22: Bedside Glucose (Misc Panel) 240H CBC/BMP Laboratory Tests 09/07/20 05:27 Microbiology Microbiology 09/06/20 Acid Fast Stain, Received Pending 09/06/20 Mycobacterial Culture, Received Pending 09/06/20 Gram Stain - Final, Resulted 09/06/20 Anaerobic Culture, Resulted Pending 09/06/20 Body Fluid Culture, Received Pending 09/01/20 Urine Culture - Final, Complete Klebsiella Pneumoniae KIRSTEN CALLEJAS MD Sep 07, 2020 20:58
[2020-09-07 21:08] VITALS: BP 141/56
[2020-09-07] MEDS: PROPRANOLOL 80 MG LA CAP PO SCH (21:08)
[2020-09-07 22:00] VITALS: BP 146/68
[2020-09-08] MEDS: RAMELTEON 8 MG TAB (ROZEREM) PO PRN (00:30)
[2020-09-08] MEDS: CIPROFLOXACIN 500MG TABLET PO SCH (05:17)
[2020-09-08 06:00] VITALS: BP 139/57
[2020-09-08] MEDS: ENOXAPARIN 40MG/0.4ML SYRINGE (J1650 PER 10MG) SC SCH (08:07)
[2020-09-08] MEDS: FUROSEMIDE 40MG/4ML VIAL (J1940) IV SCH (08:08)
[2020-09-08] MEDS: HumaLOG INSULIN (NovoLOG) PER UNIT SC SCH ×2 (08:10→12:15)
[2020-09-08 08:54] LABS: BASO % 0.6 % (0.0-1.0); EOS # 0.5 10^3/uL (0.0-0.5); EOS % 6.9 % (0.0-3.0); HEMATOCRIT 37.6 % (36.0-47.0); HEMOGLOBIN 11.9 g/dl (12.0-15.5); LYMPH % 15.5 % (24.0-44.0); MEAN CORPUSCULAR HEMOGLOBIN 27.2 pg (27.0-33.0); MEAN CORPUSCULAR HGB CONC 31.6 g/dl (32.0-36.5); MONO # 0.8 10^3/uL (0.0-0.8); MONO % 12.4 % (2.0-8.0); NEUTROPHILS # 4.2 10^3/uL (1.5-8.5); NEUTROPHILS % 63.4 % (36.0-66.0); PLATELET COUNT, AUTOMATED 164 10^3/uL (150-450); RED BLOOD COUNT 4.37 10^6/uL (4.00-5.40); WHITE BLOOD COUNT 6.7 10^3/uL (4.0-10.0)
[2020-09-08 09:24] LABS: ALBUMIN 2.9 GM/DL (3.2-5.2); BILIRUBIN,TOTAL 0.9 MG/DL (0.2-1.0); CALCIUM LEVEL 8.5 MG/DL (8.8-10.2); CREATININE FOR GFR 1.24 MG/DL (0.55-1.30); GLOMERULAR FILTRATION RATE 45.8 (>45); MAGNESIUM LEVEL 1.5 MG/DL (1.8-2.4); POTASSIUM SERUM 3.9 MEQ/L (3.5-5.1); TOTAL PROTEIN 5.5 GM/DL (6.4-8.2)
--- NOTE | 2020-09-08 12:58 | DS.PDOC ---
Discharge Summary General Date of Admission Sep 01, 2020 at 21:44 Date of Discharge 09/08/20 Discharge Summary PROCEDURES PERFORMED DURING STAY: [None]. ADMITTING DIAGNOSES: 1. . DISCHARGE DIAGNOSES: 1. . COMPLICATIONS/CHIEF COMPLAINT: Acute Pancreatitis. HISTORY OF PRESENT ILLNESS: . HOSPITAL COURSE: . DISCHARGE MEDICATIONS: Please see below. ALLERGIES: Please see below. PHYSICAL EXAMINATION ON DISCHARGE: VITAL SIGNS: Please see below. GENERAL: HEENT: NECK: CARDIOVASCULAR EXAMINATION: RESPIRATORY EXAMINATION: ABDOMINAL EXAMINATION: EXTREMITIES: SKIN: NEUROLOGICAL EXAMINATION: PSYCHIATRIC EXAMINATION: LABORATORY DATA: Please see below. IMAGING: PROGNOSIS: ACTIVITY: [As tolerated]. DIET: DISCHARGE PLAN: DISPOSITION: . DISCHARGE INSTRUCTIONS: 1. . ITEMS TO FOLLOWUP ON ON OUTPATIENT: 1. . DISCHARGE CONDITION: [Stable]. TIME SPENT ON DISCHARGE: Greater than minutes. Vital Signs/I&Os Vital Signs Date Time Temp Pulse Resp B/P (MAP) Pulse Ox O2 Delivery O2 Flow Rate FiO2 09/08/20 06:00 97.3 57 16 139/57 (84) 94 Room Air 09/07/20 06:00 2.0 I&O- Last 24 Hours up to 6 AM 09/08/20 06:00 Intake Total 2380 ml Output Total 800 ml Balance 1580 ml Laboratory Data Labs 24H Laboratory Tests 2 09/07/20 16:22: Bedside Glucose (Misc Panel) 240H 09/07/20 22:06: Bedside Glucose (Misc Panel) 210H 09/08/20 06:41: Bedside Glucose (Misc Panel) 250H 09/08/20 08:33: Immature Granulocyte % (Auto) 1.2, Neutrophils (%) (Auto) 63.4, Lymphocytes (%) (Auto) 15.5L, Monocytes (%) (Auto) 12.4H, Eosinophils (%) (Auto) 6.9H, Basophils (%) (Auto) 0.6, Neutrophils # (Auto) 4.2, Lymphocytes # (Auto) 1.0L, Monocytes # (Auto) 0.8, Eosinophils # (Auto) 0.5, Basophils # (Auto) 0.0, Nucleated Red Blood Cells % (auto) 0.0, Anion Gap 10, Glomerular Filtration Rate 45.8, Calcium Level 8.5L, Magnesium Level 1.5L, Total Bilirubin 0.9, Aspartate Amino Transf (AST/SGOT) 16, Alanine Aminotransferase (ALT/SGPT) 14, Alkaline Phosphatase 61, Total Protein 5.5L, Albumin 2.9L, Albumin/Globulin Ratio 1.1L 09/08/20 11:49: Bedside Glucose (Misc Panel) 247H CBC/BMP Laboratory Tests 09/08/20 08:33 FSBS Laboratory Tests Test 09/07/20 16:22 09/07/20 22:06 09/08/20 06:41 09/08/20 11:49 Range/Units Bedside Glucose (Misc Panel) 240 210 250 247 80-115 MG/DL Microbiology Microbiology 09/06/20 Acid Fast Stain, Received Pending 09/06/20 Mycobacterial Culture, Received Pending 09/06/20 Gram Stain - Final, Complete 09/06/20 Anaerobic Culture - Final, Complete 09/06/20 Body Fluid Culture - Final, Complete 09/01/20 Urine Culture - Final, Complete Klebsiella Pneumoniae Discharge Medications Scheduled Amlodipine Besylate (Amlodipine Besylate) 2.5 Mg Tab, 2.5 MG PO QHS, (Reported) Atorvastatin Calcium (Atorvastatin Calcium) 20 Mg Tab, 20 MG PO QHS, (Reported) Bupropion Hcl (Bupropion HCl Sr) 150 Mg Tab.sr.12h, 150 MG PO QHS, (Reported) Furosemide (Furosemide) 40 Mg Tab, 40 MG PO BID, (Reported) Insulin Glargine,Hum.rec.anlog (Toujeo Solostar) 300 Unit/1 Ml Insuln.pen, 140 UNIT SC QHS, (Reported) Losartan Potassium (Losartan Potassium) 100 Mg Tab, 100 MG PO DAILY, (Reported) Magnesium Oxide (Magnesium Oxide) 400 Mg Tablet, 400 MG PO DAILY, (Reported) Metformin HCl (Metformin HCl) 1,000 Mg Tab, 1,000 MG PO BID, (Reported) Propranolol HCl (Propranolol HCl ER) 80 Mg Cap.sa.24h, 80 MG PO QHS, (Reported) Spironolactone (Spironolactone) 25 Mg Tablet, 25 MG PO DAILY, (Reported) Scheduled PRN Acetaminophen (Tylenol Arthritis) 650 Mg Tablet.er, 1,300 MG PO Q8H PRN for PAIN, (Reported) Hydroxyzine HCl (Hydroxyzine HCl) 25 Mg Tablet, 25 MG PO QID PRN for ITCHING, (Reported) Pantoprazole Sodium (Pantoprazole Sodium) 40 Mg Tab, 40 MG PO DAILY PRN for ACID REFLUX, (Reported) Allergies Coded Allergies: cephalexin (Verified Allergy, Intermediate, rash, 11/04/18) clindamycin (Verified Allergy, Intermediate, rash, 09/01/20) sulfamethoxazole (Verified Allergy, Intermediate, rash, 11/04/18) trimethoprim (Verified Allergy, Intermediate, rash, 11/04/18) KIRSTEN CALLEJAS MD Sep 08, 2020 12:58
[2020-09-08] MEDS ORDERED: TOUJ1.2I SC (13:22)
[2020-09-08] MEDS ORDERED: FURO40TA2 PO (13:22)
[2020-09-08] MEDS ORDERED: LOSA100T50 PO (13:22)
[2020-09-08] MEDS: MAG SULF 1GM/100ML (MAG RUN) 1 GM in IV 1 EA IV SCH ×2 (13:56→14:59)
[2020-09-08 14:00] VITALS: BP 142/57
[2020-09-08] MEDS ORDERED: ACET1TAB55 PO (17:32)
[2020-09-08] MEDS ORDERED: OXYC1TAB23 PO (17:32)
[2020-09-08] MEDS ORDERED: LEVEMIR (INSULIN DETEMIR) 1 UNITS/0.01ML SC SCH (21:00)
== END 2020-09-08 16:43 | disposition home or self-care (01) | DRG 689 ==
LOC: M ED 16:48 → M ED INP 21:44 → ENRESERVTM 09-02 00:45 → ENRESERVDT 09-02 00:45 → M MSPAV 09-02 00:58
PROVIDERS: ADMIT Family Medicine; ATTEND Family Medicine
PROC: 0W9B3ZX Drainage of Left Pleural Cavity, Percutaneous Approach, Diagnostic (ICD-10-PCS; principal; 2020-09-06 11:00)
DX: N39.0 Urinary tract infection, site not specified (principal); K85.90 Acute pancreatitis without necrosis or infection, unspecified; J91.8 Pleural effusion in other conditions classified elsewhere; K21.9 Gastro-esophageal reflux disease without esophagitis; E11.22 Type 2 diabetes mellitus with diabetic chronic kidney disease; I12.9 Hypertensive chronic kidney disease with stage 1 through stage 4 chronic kidney disease, or unspecified chronic kidney disease; E78.5 Hyperlipidemia, unspecified; F32.9 Major depressive disorder, single episode, unspecified; F41.9 Anxiety disorder, unspecified; N18.30 Chronic kidney disease, stage 3 unspecified; K44.9 Diaphragmatic hernia without obstruction or gangrene; I87.2 Venous insufficiency (chronic) (peripheral); G47.33 Obstructive sleep apnea (adult) (pediatric); L29.9 Pruritus, unspecified; E83.42 Hypomagnesemia; M50.30 Other cervical disc degeneration, unspecified cervical region; M19.90 Unspecified osteoarthritis, unspecified site; Z79.4 Long term (current) use of insulin; Z79.899 Other long term (current) drug therapy; Z88.1 Allergy status to other antibiotic agents; Z88.2 Allergy status to sulfonamides; Z88.8 Allergy status to other drugs, medicaments and biological substances; Z98.1 Arthrodesis status; Z96.662 Presence of left artificial ankle joint; Z20.822 Contact with and (suspected) exposure to COVID-19; B96.1 Klebsiella pneumoniae [K. pneumoniae] as the cause of diseases classified elsewhere

== ENCOUNTER 2020-09-13 12:41 | Inpatient (IN) | payer MEDICARE ==
[~2020-09-13] VITALS: Ht 167.6 cm; Wt 103.4 kg
[~2020-09-13 12:41] MED LIST changes: +ACET1TAB55 PO; +BUPR150T5 PO; +MAGN400T2 PO; +OXYC1TAB23 PO; +PROP80CA PO; +TOUJ1.2I SC
[2020-09-13 15:10] LABS: BASO # 0.1 10^3/uL (0.0-0.2); BASO % 0.8 % (0.0-1.0); EOS # 0.2 10^3/uL (0.0-0.5); EOS % 2.7 % (0.0-3.0); HEMATOCRIT 35.4 % (36.0-47.0); HEMOGLOBIN 11.5 g/dl (12.0-15.5); LYMPH # 1.1 10^3/uL (1.5-5.0); LYMPH % 14.2 % (24.0-44.0); MEAN CORPUSCULAR HGB CONC 32.5 g/dl (32.0-36.5); MEAN CORPUSCULAR VOLUME 86.1 fl (80.0-96.0); MONO % 12.8 % (2.0-8.0); NEUTROPHILS # 5.4 10^3/uL (1.5-8.5); NEUTROPHILS % 68.4 % (36.0-66.0); PLATELET COUNT, AUTOMATED 123 10^3/uL (150-450); RED BLOOD COUNT 4.11 10^6/uL (4.00-5.40); WHITE BLOOD COUNT 7.9 10^3/uL (4.0-10.0)
[2020-09-13 15:39] LABS: ALBUMIN 3.1 GM/DL (3.2-5.2); ALT/SGPT 12 U/L (12-78); BILIRUBIN,DIRECT 0.4 MG/DL (0.0-0.2); BILIRUBIN,TOTAL 1.3 MG/DL (0.2-1.0); BLOOD UREA NITROGEN 37 MG/DL (7-18); CALCIUM LEVEL 8.7 MG/DL (8.8-10.2); CARBON DIOXIDE LEVEL 27 MEQ/L (21-32); CHLORIDE LEVEL 101 MEQ/L (98-107); CREATININE FOR GFR 1.59 MG/DL (0.55-1.30); GLOMERULAR FILTRATION RATE 34.4 (>45); GLUCOSE, FASTING 175 MG/DL (70-100); LIPASE 4358 U/L (73-393); POTASSIUM SERUM 3.6 MEQ/L (3.5-5.1); SODIUM LEVEL 137 MEQ/L (136-145)
[2020-09-13] MEDS ORDERED: NS 1,000 ML IV SCH (16:20)
--- NOTE | 2020-09-13 16:50 | REP ---
INDICATION: ARRHYTHMIA COMPARISON: 09/07/2020. TECHNIQUE: PA/Lateral FINDINGS: Mild to moderate left pleural effusion is unchanged. There is adjacent patchy left basilar parenchymal opacity unchanged. Right lung remains clear. The heart and mediastinum are unchanged. There are old left rib fractures again noted. IMPRESSION: Left pleural effusion and basilar parenchymal opacity unchanged. <Electronically signed by Rick Matthews > 09/13/20 [id number]
--- NOTE | 2020-09-13 16:57 | ED PDOC ---
Post-Departure Follow-Up cxr faxed to dr wall for fu Franco Sam MD Sep 13, 2020 16:57
[2020-09-13 18:05] LABS: NT-PRO BNP 1980 PG/ML (<125)
[2020-09-13] MEDS ORDERED: TOUJ1.2I SC (19:11)
[2020-09-13] MEDS ORDERED: FURO40TA2 PO (19:11)
[2020-09-13] MEDS ORDERED: ACET1TAB55 PO (19:11)
[2020-09-13] MEDS ORDERED: LOSA100T50 PO (19:11)
[2020-09-13 19:22] LABS: RSV AMPLIFICATION NEGATIVE (NEGATIVE)
[2020-09-13 19:37] LABS: CK-MB VALUE MASS 1.7 NG/ML (<3.6); CPK CREATINE PHOSPHOKINASE 61 U/L (26-192); MB/CK RELATIVE INDEX 2.79 (< OR =4); TROPONIN I < 0.02 NG/ML (< 0.10)
[2020-09-13 20:01] VITALS: BP 170/70
[2020-09-13] MEDS ORDERED: DEXTROSE 50% 50 ML SYRINGE IV PRN (20:40)
[2020-09-13] MEDS ORDERED: GLUCOSE 4GM CHEW TABLET PO PRN (20:40)
[2020-09-13] MEDS ORDERED: GLUCAGON INJ 1MG VIAL SC PRN (20:40)
[2020-09-13] MEDS ORDERED: buPROPion **SR TABLET** (ZYBAN) 150MG PO SCH (21:00)
[2020-09-13] MEDS ORDERED: ATORVASTATIN 20 MG TAB PO SCH (21:00)
[2020-09-13] MEDS ORDERED: PROPRANOLOL 80 MG LA CAP PO SCH (21:00)
[2020-09-13] MEDS ORDERED: HumaLOG INSULIN (NovoLOG) PER UNIT SC SCH (21:00)
[2020-09-13] MEDS ORDERED: hydrOXYzine 25 MG TAB PO PRN (21:05)
[2020-09-13] MEDS ORDERED: PANTOPRAZOLE 40MG TAB (PROTONIX) PO PRN (21:05)
[2020-09-13] MEDS: LEVEMIR (INSULIN DETEMIR) 1 UNITS/0.01ML SC SCH (21:16)
[2020-09-13 21:26] VITALS: BP 149/67
[2020-09-13] MEDS: LR 1,000 ML IV SCH (21:43)
[2020-09-13] MEDS ORDERED: MORPHINE 2 MG/ML 1ML VIAL (J2270) IV PRN (22:20)
[2020-09-13] MEDS ORDERED: PROHANCE 279.3MG/ML 5ML VIAL As Ordered ONE (22:22)
--- NOTE | 2020-09-13 22:47 | HPEPDOC ---
[facility] Medical History & Physical Date of Admission Sep 13, 2020 Date of Service: Sep 13, 2020 Primary Care Physician: Nikole Wagoner Attending Physician: RYAN HERZOG MD History and Physical CHIEF COMPLAINT: General weakness and dry heaves HISTORY OF PRESENT ILLNESS: Charmaine is a pleasant 69yo female w/ notable PMHx of recent admission for acute pancreatitis (09/01-09/08/20), IDDM, htn, hld, CKD III, EULALIA not currently using home CPAP, chronic LE edema, and dep/anxiety who presented to the [facility] ED this afternoon directly from her primary care physician's office (Dr. Wagoner) with the express instructions to receive IV fluid hydration. As stated, patient was just discharged 5 days ago and had not been eating much over the weekend due to decreased appetite and intermittent dry heaves. She had been trying to push fluid consumption, but had been unsuccessful to consistently maintain this due to the dry heaves. When she presented to her PCP late this morning, orthostatic vital signs were reportedly positive and the patient was subsequently told to seek IV fluid hydration in the ED. Upon review, patient denies any significant abdominal pain or nausea since being discharged 5 days ago. She has however had the aforementioned dry heaves with accompanying significant fatigue. She did have episodes of diarrhea after discharge up through yesterday with a more solid formed BM today. Interestingly, she reports her hunger is not diminished at this time. During the admission last week, patient did not have any stones seen on CT abdomen and pelvis, she has not had any alcohol in 38 years, and she has not use tobacco products in 30 years. Her lipase upon admission last week was 1828, and her triglyceride level was only mildly elevated at 169. She does take furosemide as an outpatient for chronic lower extremity edema, but denies any recent trauma, use of aspirin, metronidazole, Depakote, calcium supplementation, estrogen supplementation, family history of pancreatitis, known autoimmune conditions (specifically, PA and, as colitis), recent ERCP, or current malign kristie. She is unsure if she's had mumps in the past. She was treated with ciprofloxacin for 5 days during her admission last week for Klebsiella UTI (non- ESBL). Upon presentation to the ED today, patient was notable for elevated lipase (4358), elevated BNP (1980), normocytic normochromic anemia (hemoglobin 11.5), thrombocytopenia (123), and MARY LOU on CKD (creatinine 1.59, recent baseline about 11.2). Initial imaging at time of admission evaluation was only a chest x-ray showing unchanged left pleural effusion and unchanged left basilar opacity. The patient was subsequently admitted under the care of the hospitalist service primarily for persistent/recurrent pancreatitis, as well as acute kidney injury superimposed on chronic kidney disease. Patient verbally confirms in the ED that she is a full code. PAST MEDICAL HISTORY: Insulin dependent diabetes mellitus type 2. Hypertension Chronic lower extremity edema with recurrent left lower extremity cellulitis. Chronic kidney disease, stage III GERD Anxiety/depression Sleep apnea, not currently using her home CPAP Gout Osteoarthritis. History of pyelonephritis History of hiatal hernia History of colon polyps Previous history of urticaria. Previous history of abnormal EKG with negative stress echo. History of irritable bowel syndrome Degenerative disc disease of the cervical spine. PAST SURGICAL HISTORY: Appendectomy Tonsillectomy Cervical spinal fusion. Left total knee arthroplasty. Oophorectomy Colonic tubular adenoma resection SOCIAL HISTORY: Patient is and lives with her . Patient stopped drinking alcohol 38 years ago. Prior to that she would only drink a glass of wine maybe every month to 2 months. Patient is a former smoker but she quit approximately 30 years ago. Patient denies any current or former illegal drug use or illicit drug use. FAMILY HISTORY: Father: , esophageal cancer Mother: Hodgkin's disease ALLERGIES: Please see below. REVIEW OF SYSTEMS: CONSTITUTIONAL: Reports fatigue and generalized weakness since being discharged from the hospital last week. Denies any recent unintentional change in weight, fever, chills, or night sweats. CARDIOVASCULAR: Denies chest pain, chest pressure, or palpitations RESPIRATORY: Shortness of breath, pleuritic chest pain, cough GASTROINTESTINAL: Reported dry heaves over the past few days with previous decreased appetite. Appetite is improved today. Patient also denies abdominal pain, nausea, recent vomiting,. For recent bowel movement history see HPI. GENITOURINARY: Denies dysuria, hematuria, flank pain, suprapubic pain. MUSCULOSKELETAL: Reports generalized muscle weakness. Usually ambulates on her own power but sometimes uses a cane when walking on level ground. NEUROLOGICAL: Denies significant neuropathy HEMATOLOGIC: Reports some recent bruising from IV sticks during last admission. Otherwise, no recent easy bleeding or bruising. HOME MEDICATIONS: Please see below. PHYSICAL EXAMINATION: VITAL SIGNS: Please see below. GENERAL APPEARANCE: Pleasant female. Appears slightly older than stated age. Is tearful and at times apprehensive/nervous during exam. HEENT: Normocephalic. Noninjected, anicteric sclera. Mild conjunctival pallor. There is some mild anise Rodger, particularly of the right pupil, although both pupils are reactive to light and accommodation. There is a small scratch/abrasion of the left lower eyelid. ORAL CAVITY: Moderately dry mucous membranes. No pharyngeal erythema or exudate appreciated. There is some chapping of the rib angles. CARDIOVASCULAR: Regular rate, regular rhythm. Normal S1, S2. No significant murmurs or rubs are appreciated. LUNGS: Patient is breathing room air. There is some mild dullness to percussion over the bilateral bases and mild bibasilar crackles are appreciated auscultation bilaterally. Decreased tidal volume with symmetric chest expansion. No significant wheezes or rhonchi appreciated. Speaking full sentences. ABDOMEN: Soft, obese, nondistended and nontender. No rigidity or guarding appreciated. Negative Rodriguez sign. There is no fluid shift appreciated. No hepatosplenomegaly is appreciated, nor were any palpable masses, although patient's habitus somewhat limits accuracy. Hypoactive bowel sounds throughout. MUSCULOSKELETAL: 5/5 muscle strength upper extremities and lower extremities bilaterally. EXTREMITIES: There is 23 plus bilateral lower extremity pitting edema, left greater than right. There is also bilateral lower extremity erythema with minimal warmth. Skin of bilateral lower extremities is dry and flaky. Approximately 1+ bilateral pedal edema. There is bilateral great toe onychomycosis. NEUROLOGICAL: No gross focal neurologic deficits appreciated. Non-dysarthric speech. Appropriately responding to questions and commands. PSYCHIATRIC: Tearful and nervous at times during exam otherwise is pleasant. Affect appears appropriate. LABORATORY DATA: Please see below. IMAGING: Chest x-ray, 09/13/20 Impression: Unchanged left pleural effusion with unchanged adjacent patchy left basilar opacity from comparison on 09/07/20. MICROBIOLOGY: Please see below. ASSESSMENT & PLAN: This is a pleasant 69 yo female w/ notable h/o recent acute pancreatitis (admitted ) w/ left thoracentesis during admission, IDDMII, hld, eulalia not using home CPAP, htn, chronic LE edema w/ reported recurrent LLE cellulitis, and CKD who presented to the ED on afternoon of 09/13/20 from her PCP's office for IVFs due to dehydration and general weakness w/ poor po intake since hospital d/c 5 days prior. She was found to have persistent vs recurrent pa ncreatitis, as well as mary lou. #Persistent versus recurrent pancreatitis -etiology is unknown at this time, but as discussed above in HPI, many known causes seem unlikely upon review; leading possibilities at this time are sludge in biliary tract vs pancreatic ca -triglycerides were only mildly elevated during admission last week (169) -No stones were seen on CT Abd/Pel last week, but more accurate imaging modality would be U/S or MRI -Pt has not had EtOH in 38 years -Per discussion with gastroenterology service, an abdominal MRI with pancreatic protocol has been ordered -IVF were switched to LRs 100 cc/hr upon admission. Slower rate d/t recent left pleural effusion from over hydration for inital admission last week in setting of chronic LE edema and likely rt sided HF -Pt will be NPO -IV pain med in form of morphine 2 mg q4h prn -Strict I&O monitoring to assess for titration of LR rate; also will watch BUN and Hct levels, which are other indicators of need to up titrate vs down titrate rate -Gastroenterology service (Dr. Templeton) has been officially consulted. Hospitalist team is very appreciative for continued insights and collaboration from gastroenterology. #Acute kidney injury superimposed on CKD III -most likely pre-renal etiology in setting of recent poor PO intake s/p last week pancreatitis admission and dry heaves since d/c -initial sCr 1.59/BUN 37/calculated GFR 34%; recent baseline Cr around 1-1.2 -receiving LRs for current pancreatitis -urine Na, urine Cr, and urine urea all ordered to calculate Fe urea (not doing FeNa because pt is on diuretics as outpt) -avoiding nephrotoxic agents -holding home diuretics (lasix and aldactone) -f/u repeat metyabolic panel(s) -Of note, pt does not follow w/ nephrology service as outpt #Left pleural effusion s/p thoracentesis last week -pt developed pxywzkew-on-ckjur left pleural eff last week in setting of aggress reji IVF hydration for acute pancreatitis -500 cc were removed during last week's thoracentesis -Analysis of fluid via Light's Criteria was positive for exudative effusion; pathology interpretation of fluid cell types did not appreciate for malignancy -upon cxr for this admission, left pleural effusion was read as small #Stasis dermatitis -pt has chronic b/l LE edema -echo done during admission last week showed mild pulm htn and mild elevated CVP with EF estimated at 45-50% -nursing order to elevate legs at rest and to wear compression stockings -pt has a reported h/o recurrent LLE cellulitis, but not much warmth or tenderness appreciated on exam today; skin was red and flaky; pt had no white count #IDDMII -held pt's home metformin upon admission -pt takes 50u toujeo (long-acting) bid at home; [facility] formulary only has levemir for long-acting -due to npo status, Levemir 20u bid ordered -SSI (short-acting) and FSBS q6h in setting of npo w/ hypoglycemic protocol #HTN -home propranolol continued upon admission -home losartan discontinued in setting of MARY LOU #HLD -home statin medication continued upon admission -pt is NPO in setting of recalcitrant pancreatitis #History of sleep apnea, not currently using home CPAP -pt reports not using her home CPAP due to mechanical issues -O2 titration orders in place #DVT prophylaxis: sc heparin in setting of MARY LOU Disposition: Admit to PCU due to recalcitrant pancreatitits; expected stay at least 2 midnights. Vital Signs Vital Signs Date Time Temp Pulse Resp B/P (MAP) Pulse Ox O2 Delivery O2 Flow Rate FiO2 09/13/20 19:46 97.7 79 19 168/77 (107) 95 Room Air Laboratory Data Labs 24H Laboratory Tests 2 09/13/20 14:57: Immature Granulocyte % (Auto) 1.1, Neutrophils (%) (Auto) 68.4H, Lymphocytes (%) (Auto) 14.2L, Monocytes (%) (Auto) 12.8H, Eosinophils (%) (Auto) 2.7, Basophils (%) (Auto) 0.8, Neutrophils # (Auto) 5.4, Lymphocytes # (Auto) 1.1L, Monocytes # (Auto) 1.0H, Eosinophils # (Auto) 0.2, Basophils # (Auto) 0.1, Nucleated Red Blood Cells % (auto) 0.0, Anion Gap 9, Glomerular Filtration Rate 34.4L, Calcium Level 8.7L, Total Bilirubin 1.3H, Direct Bilirubin 0.4H, Aspartate Amino Transf (AST/SGOT) 14, Alanine Aminotransferase (ALT/SGPT) 12, Alkaline Phosphatase 59, Total Creatine Kinase 61, Creatine Kinase MB 1.7, Creatine Kinase MB Relative Index 2.79, Troponin I < 0.02, JL-Rkv-[id number]-Type Natriuretic Peptide 1980H, Total Protein 6.0L, Albumin 3.1L, Albumin/Globulin Ratio 1.1L, Lipase 4358H 09/13/20 18:29: Coronavirus (COVID-19)(PCR) NEGATIVE, Influenza Type A (RT-PCR) NEGATIVE, Influenza Type B (RT-PCR) NEGATIVE, Respiratory Syncytial Virus (PCR) NEGATIVE CBC/BMP Laboratory Tests 09/13/20 14:57 Home Medications Scheduled Atorvastatin Calcium (Atorvastatin Calcium) 20 Mg Tab, 20 MG PO QHS Bupropion Hcl (Bupropion HCl Sr) 150 Mg Tab.sr.12h, 150 MG PO QHS Furosemide (Furosemide) 40 Mg Tablet, 40 MG PO BID Insulin Glargine,Hum.rec.anlog (Toujeo Solostar) 300 Unit/1 Ml Insuln.pen, 50 UNIT SC BID Losartan Potassium (Losartan Potassium) 100 Mg Tablet, 100 MG PO DAILY Magnesium Oxide (Magnesium Oxide) 400 Mg Tablet, 400 MG PO DAILY Metformin HCl (Metformin HCl) 1,000 Mg Tab, 1,000 MG PO BID Propranolol HCl (Propranolol HCl ER) 80 Mg Cap.sa.24h, 80 MG PO QHS Spironolactone (Spironolactone) 25 Mg Tablet, 25 MG PO DAILY Scheduled PRN Acetaminophen (Acetaminophen) 325 Mg Tablet, 650 MG PO Q6H PRN for PAIN Hydroxyzine HCl (Hydroxyzine HCl) 25 Mg Tablet, 25 MG PO QID PRN for ITCHING Pantoprazole Sodium (Pantoprazole Sodium) 40 Mg Tab, 40 MG PO DAILY PRN for ACID REFLUX Allergies Coded Allergies: cephalexin (Verified Allergy, Intermediate, rash, 11/04/18) clindamycin (Verified Allergy, Intermediate, rash, 09/01/20) sulfamethoxazole (Verified Allergy, Intermediate, rash, 11/04/18) trimethoprim (Verified Allergy, Intermediate, rash, 11/04/18) A-FIB/CHADSVASC A-FIB History Current/History of A-Fib/PAF?: No Current PO Anticoag Therapy: No ABIDA OBANDO D.O. Sep 13, 2020 22:46
[2020-09-14] VITALS: BP 159/66
--- NOTE | 2020-09-14 00:20 | REPVR ---
PROCEDURE INFORMATION: Exam: MR Abdomen Without and With Contrast Exam date and time: 09/13/2020 10:32 PM Age: 69 years old Clinical indication: Abnormal findings; Abnormal lab test; Elevated lipase; Patient HX: Abd pain, nausea abn lab results, pancreatic protocol TECHNIQUE: Imaging protocol: MR of the abdomen without and with intravenous contrast. Contrast material: PROHANCE; Contrast volume: 10 ml; Contrast route: INTRAVENOUS (IV); COMPARISON: CT ABD/PEL W/IV CONTRAST ONLY 09/01/2020 7:08 PM FINDINGS: Limitations: The exam is degraded by patient motion artifact. Liver: Small cysts in the liver. No solid liver masses. Gallbladder and bile ducts: Unremarkable. No stones. No ductal dilation. Pancreas: Masslike enlargement of the pancreatic body and tail, measuring up to 8.4 x 5.5 cm. The enlarged pancreatic body and tail are not clearly separable from the posterior wall of the stomach or splenic hilum. No pancreatic duct dilation. No peripancreatic abscess. Spleen: Large ill-defined area of heterogeneous predominantly low signal in the central spleen extending to the lateral capsular surface suggesting splenic infarction. Adrenal glands: Unremarkable. No mass. Kidneys and ureters: Right kidney is atrophic. Left kidney is unremarkable. Mild perinephric edema. Stomach and bowel: No bowel obstruction. Intraperitoneal space: Mild intraperitoneal edema and trace ascites. Arteries: No abdominal aortic aneurysm. Lymph nodes: There is retroperitoneal adenopathy with largest periaortic node measuring 3.3 cm retroperitoneal edema. Bones/joints: Unremarkable. Soft tissues: Mild subcutaneous edema. Other findings: Small left pleural effusion. IMPRESSION: 1. Motion limited exam. 2. Masslike enlargement of the pancreas concerning for underlying neoplasm. Surrounding inflammatory changes suggesting acute pancreatitis. No peripancreatic abscess. 3. Retroperitoneal lymphadenopathy. 4. Probable splenic infarction. 5. Atrophic right kidney. Electronically signed by: Guido Logan On 09/14/2020 00:19:37 AM
[2020-09-14 04:00] VITALS: BP 152/74
[2020-09-14 05:39] LABS: HEMATOCRIT 32.2 % (36.0-47.0); HEMOGLOBIN 10.1 g/dl (12.0-15.5); MEAN CORPUSCULAR HEMOGLOBIN 27.1 pg (27.0-33.0); MEAN CORPUSCULAR HGB CONC 31.4 g/dl (32.0-36.5); MEAN CORPUSCULAR VOLUME 86.3 fl (80.0-96.0); PLATELET COUNT, AUTOMATED 119 10^3/uL (150-450); RED BLOOD COUNT 3.73 10^6/uL (4.00-5.40); WHITE BLOOD COUNT 6.6 10^3/uL (4.0-10.0)
[2020-09-14] MEDS: HumaLOG INSULIN (NovoLOG) PER UNIT SC SCH ×2 (06:00)
[2020-09-14 06:05] LABS: ALBUMIN 2.5 GM/DL (3.2-5.2); BILIRUBIN,TOTAL 1.2 MG/DL (0.2-1.0); CALCIUM LEVEL 7.8 MG/DL (8.8-10.2); CHOLESTEROL RISK RATIO 12.111 (<5); CREATININE FOR GFR 1.34 MG/DL (0.55-1.30); GLOMERULAR FILTRATION RATE 41.9 (>45); MAGNESIUM LEVEL 2.3 MG/DL (1.8-2.4); POTASSIUM SERUM 3.8 MEQ/L (3.5-5.1); TOTAL PROTEIN 4.8 GM/DL (6.4-8.2)
[2020-09-14] MEDS: LR 1,000 ML IV SCH (07:15)
[2020-09-14] MEDS ORDERED: HumaLOG INSULIN (NovoLOG) PER UNIT SC SCH ×3 (07:30→21:00)
[2020-09-14 08:00] VITALS: BP 142/65
[2020-09-14] MEDS ORDERED: HEPARIN SOD (PORCINE) 5000UNITS/ML 1ML VIAL/SYRINGE SC SCH (09:00)
[2020-09-14] MEDS ORDERED: LOSARTAN 50MG TABLET PO SCH (09:00)
--- NOTE | 2020-09-14 09:32 | REP ---
INDICATION: Acute kidney injury. COMPARISON: 12/10/2007. TECHNIQUE: Real-time sonographic evaluation of the kidneys is performed. FINDINGS: The right kidney is atrophic. There is no hydronephrosis bilaterally. No renal mass is seen. The right kidney measures 8.4 x 5.0 x 4.3 cm. Left renal dimensions are 11.4 x 6.4 x 7.0 cm. The urinary bladder is unremarkable. Bladder is not fully distended. With Doppler color evaluation a left ureteral jet is visualized, a right ureteral jet is not seen. IMPRESSION: No hydronephrosis or renal mass. Atrophic right kidney. <Electronically signed by Rick Matthews > 09/14/20 0928
--- NOTE | 2020-09-14 09:33 | REP ---
INDICATION: INTERIM EVAL. COMPARISON: 09/13/2020. TECHNIQUE: Single portable AP view of the chest was performed. FINDINGS: Left effusion and adjacent parenchymal opacity are unchanged. Right lung remains clear. Heart and mediastinum are unchanged. IMPRESSION: Stable exam. <Electronically signed by Rick Matthews > 09/14/20 0971
[2020-09-14] MEDS: LEVEMIR (INSULIN DETEMIR) 1 UNITS/0.01ML SC SCH (09:47)
[2020-09-14] MEDS ORDERED: ONDANSETRON 4MG/2ML VIAL IV ONE (11:00)
[2020-09-14 12:00] VITALS: BP 144/78
[2020-09-14] MEDS ORDERED: MIRA3350 PO (13:40)
[2020-09-14] MEDS ORDERED: OXYC1TAB23 PO (13:40)
[2020-09-14] MEDS ORDERED: ZOFR4TAB16 PO (13:40)
[2020-09-14] MEDS ORDERED: PERCOCET 5MG/325MG TAB PO PRN (15:45)
--- NOTE | 2020-09-14 17:49 | DS.PDOC ---
Discharge Summary General Date of Admission Sep 13, 2020 at 18:48 Date of Discharge Monday, September 14, 2020 Primary Care Physician: Nikole Wagoner Attending Physician: ROBERT PRO MD Specialist/Consultants Involve: VITALIY CUMMINS MD Discharge Summary PROCEDURES PERFORMED DURING STAY: None ADMITTING DIAGNOSES: -Persistent versus recurrent pancreatitis, etiology unknown -Acute kidney injury -Insulin-dependent diabetes mellitus type 2 -Small left pleural effusion -Stasis dermatitis -Hypertension -Hyperlipidemia -History of sleep apnea not currently using home CPAP DISCHARGE DIAGNOSES: -Persistent versus recurrent pancreatitis secondary to likely pancreatic cancer -Acute kidney injury secondary to prerenal etiology likely poor p.o. intake/dehydration, improved -Insulin-dependent diabetes mellitus type 2 -Small left pleural effusion -Atrophic right kidney Retroperitoneal lymphadenopathy on abdomen MRI imaging -Stasis dermatitis -Hypertension -Hyperlipidemia -History of sleep apnea not currently using home CPAP COMPLICATIONS/CHIEF COMPLAINT: Acute Pancreatitis. HISTORY OF PRESENT ILLNESS: Charmaine is a pleasant 69yo female w/ notable PMHx of recent admission for acute pancreatitis (09/01-09/08/20), IDDM, htn, hld, CKD III, EULALIA not currently using home CPAP, chronic LE edema, and dep/anxiety who presented to the [facility] ED this afternoon directly from her primary care physician's office (Dr. Wagoner) with the express instructions to receive IV fluid hydration. As stated, patient was just discharged 5 days ago and had not been eating much over the weekend due to decreased appetite and intermittent dry heaves. She had been trying to push fluid consumption, but had been unsuccessful to consistently maintain this due to the dry heaves. When she presented to her PCP late this morning, orthostatic vital signs were reportedly positive and the patient was subsequently told to seek IV fluid hydration in the ED. Upon review, patient denies any significant abdominal pain or nausea since being discharged 5 days ago. She has however had the aforementioned dry heaves with accompanying significant fatigue. She did have episodes of diarrhea after discharge up through yesterday with a more solid formed BM today. Interestingly, she reports her hunger is not diminished at this time. During the admission last week, patient did not have any stones seen on CT abdomen and pelvis, she has not had any alcohol in 38 years, and she has not use tobacco products in 30 years. Her lipase upon admission last week was 1828, and her triglyceride level was only mildly elevated at 169. She does take furosemide as an outpatient for chronic lower extremity edema, but denies any recent trauma, use of aspirin, metronidazole, Depakote, calcium supplementation, estrogen supplementation, family history of pancreatitis, known autoimmune conditions (specifically, PA and, as colitis), recent ERCP, or current malignancy. She is unsure if she's had mumps in the past. She was treated with ciprofloxacin for 5 days during her admission last week for Klebsiella UTI (non- ESBL). Upon presentation to the ED today, patient was notable for elevated lipase (4358), elevated BNP (1980), normocytic normochromic anemia (hemoglobin 11.5), thrombocytopenia (123), and MARY LOU on CKD (creatinine 1.59, recent baseline about 11.2). Initial imaging at time of admission evaluation was only a chest x-ray showing unchanged left pleural effusion and unchanged left basilar opacity. The patient was subsequently admitted under the care of the hospitalist service primarily for persistent/recurrent pancreatitis, as well as acute kidney injury superimposed on chronic kidney disease. Patient verbally confirms in the ED that she is a full code. HOSPITAL COURSE: Upon admission, hospitalist service discussed the case with on-call gastroenterology physician (Dr. Cummins). Patient did not receive an ultrasound study during last week's admission for acute pancreatitis and thus per recommendation of gastroenterology, an abdominal MRI was ordered with pancreatic protocol. In terms of IV fluid infusion rate, we watched intake and output closely and monitored for repeat BUN and hematocrit on the labs for 09/14 to assess if fluid rate needed to be increased. Due to the fact that no pancreatic necrosis/peripancreatic abscess was seen on initial imaging nor on last week's admission imaging, no antibiotics are indicated. The fluid rate was not initially as aggressive due to her recent left moderate to large pleural effusion after excess hydration in the setting of last weeks acute pancreatitis admission. Patient was made n.p.o. upon admission and was receiving fingersticks for her diabetes along with sliding scale insulin every 6 hours. A lso her home long-acting insulin dosing was switched to 20 mg twice a day for inpatient stay. Patient was switched over to lactated Ringer's, and as needed IV morphine was ordered for pain. The fluid resuscitation was part of the treatment plan for patient's acute kidney injury. Her home losartan medication was held as were her home furosemide and spironolactone medications. A renal ultrasound was ordered which resulted with an atrophic right kidney but no hydronephrosis. Calculation of fractional excretion of urea showed that this was a prerenal MARY LOU. Of note, patient has sleep apnea but does not currently use her home CPAP medication. Based on what was done during admission last week, prn hs supplemental oxygen was ordered to maintain saturations. Abdominal MRI with pancreatic protocol results returned on the morning of 09/14, with remarkable results showing a "masslike enlargement of the pancreas concerning for underlying neoplasm with surrounding inflammatory changes suggesting acute pancreatitis with no peripancreatic abscess." There was also retroperitoneal lymphadenopathy seen. At this point, and risk of worsening her small left pleural effusion still remaining from last week's admission, IV fluids were stopped and a clear liquid diet was started. Hospitalist service again discussed with director business, who was consulted. They felt based on imaging that patient's pancreatitis was very likely a result of pancreatic cancer. On-call director business then explained options for patient and that most likely neck step would be to get an endoscopic ultrasound with biopsy to definitively rule in cancer and stage the cancer to understand if it was operable. On-call director business then went and had a conversation with the patient explaining these results. Upon morning labs for 09/14, patient's acute kidney injury was greatly improved. Later in the day on 09/14, the hospital service went back to discuss what the plan was upon discharge. Patient is to be seen by her primary care physician in the next 3 to 5 days to get referral to gastroenterology in [place] for an EUS with biopsy. The biopsy results will determine the next steps. There were r eferrals made for her to go and follow-up as outpatient with the [facility] medical oncology office as well as to her PCP and gastroenterology in [place]. Outpatient scripts were sent for pain medication, nausea medication, and as needed constipation medication. In addition, the patient was told not to resume her home losartan until she was seen by her primary care physician in the setting of her recent MARY LOU. Patient agreed with the plan and understood the steps upon discharge. DISCHARGE MEDICATIONS: Please see below. ALLERGIES: Please see below. PHYSICAL EXAMINATION ON DISCHARGE: VITAL SIGNS: Please see below. GENERAL APPEARANCE: Pleasant female. Appears slightly older than stated age. Lying upright in hospital bed. HEENT: Normocephalic. Noninjected, anicteric sclera. Mild conjunctival pallor. There is some mild anise Rodger, particularly of the right pupil, although both pupils are reactive to light and accommodation. There is a small scratch/abrasion of the left lower eyelid. ORAL CAVITY: Mucous membranes appear more moist today versus yesterday. No p haryngeal erythema or exudate appreciated. CARDIOVASCULAR: Regular rate, regular rhythm. Normal S1, S2. No significant murmurs or rubs are appreciated. LUNGS: Patient is breathing room air. There remains some mild dullness to percussion over the bilateral bases and mild bibasilar crackles are again appreciated on auscultation bilaterally. Decreased tidal volume with symmetric chest expansion. No significant wheezes or rhonchi appreciated. Speaking full sentences. ABDOMEN: Soft, obese, nondistended and nontender. No rigidity or guarding appreciated. No hepatosplenomegaly is appreciated, nor were any palpable masses, although patient's habitus somewhat limits accuracy. Normoactive bowel sounds throughout. MUSCULOSKELETAL: 5/5 muscle strength upper extremities and lower extremities bilaterally. EXTREMITIES: There remains 23 plus bilateral lower extremity pitting edema, left greater than right. There is also bilateral lower extremity erythema with minimal warmth. Skin of bilateral lower extremities is dry and flaky. Approximately 1+ bilateral pedal edema. There is bilateral great toe o nychomycosis. NEUROLOGICAL: No gross focal neurologic deficits appreciated. Non-dysarthric speech. Appropriately responding to questions and commands. PSYCHIATRIC: Mood seen improved today versus yesterday. Affect appears appropriate. LABORATORY DATA: Please see below. IMAGING: Abdominal MRI with pancreatic protocol without contrast followed by with, 09/13/2020 FINDINGS: Limitations: The exam is degraded by patient motion artifact. Liver: Small cysts in the liver. No solid liver masses. Gallbladder and bile ducts: Unremarkable. No stones. No ductal dilation. Pancreas: Masslike enlargement of the pancreatic body and tail, measuring up to 8.4 x 5.5 cm. The enlarged pancreatic body and tail are not clearly separable from the posterior wall of the stomach or splenic hilum. No pancreatic duct dilation. No peripancreatic abscess. Spleen: Large ill-defined area of heterogeneous predominantly low signal in the central spleen extending to the lateral capsular surface suggesting splenic infarction. Adrenal glands: Unremarkable. No mass. Kidneys and ureters: Right kidney is atrophic. Left kidney is unremarkable. Mild perinephric edema. Stomach and bowel: No bowel obstruction. Intraperitoneal space: Mild intraperitoneal edema and trace ascites. Arteries: No abdominal aortic aneurysm. Lymph nodes: There is retroperitoneal adenopathy with largest periaortic node measuring 3.3 cm retroperitoneal edema. Bones/joints: Unremarkable. Soft tissues: Mild subcutaneous edema. Other findings: Small left pleural effusion. IMPRESSION: 1. Motion limited exam. 2. Masslike enlargement of the pancreas concerning for underlying neoplasm. Surrounding inflammatory changes suggesting acute pancreatitis. No peripancreatic abscess. 3. Retroperitoneal lymphadenopathy. 4. Probable splenic infarction. 5. Atrophic right kidney. Chest x-ray 2 view (anterior posterior), 09/13/2020 FINDINGS: Mild to moderate left pleural effusion is unchanged. There is adjacent patchy left basilar parenchymal opacity unchanged. Right lung remains clear. The heart and mediastinum are unchanged. There are old left rib fractures again noted. IMPRESSION: Left pleural effusion and basilar parenchymal opacity unchanged. Renal ultrasound, 09/14/2020 FINDINGS: The right kidney is atrophic. There is no hydronephrosis bilaterally. No renal mass is seen. The right kidney measures 8.4 x 5.0 x 4.3 cm. Left renal dimensions are 11.4 x 6.4 x 7.0 cm. The urinary bladder is unremarkable. Bladder is not fully distended. With Doppler color evaluation a left ureteral jet is visualized, a right ureteral jet is not seen. IMPRESSION: No hydronephrosis or renal mass. Atrophic right kidney. Chest x-ray, portable, 09/14/2020 FINDINGS: Left effusion and adjacent parenchymal opacity are unchanged. Right lung remains clear. Heart and mediastinum are unchanged. IMPRESSION: Stable exam. PROGNOSIS: Overall is poor based on presumed pancreatic neoplasm ACTIVITY: As tolerated DIET: Diabetic and 2 g sodium diet Disposition: Discharge home DISCHARGE INSTRUCTIONS & ITEMS TO FOLLOWUP ON ON OUTPATIENT: -Follow-up with primary care provider (Dr. Nikole Wagoner) in the next 3 to 5 days. -Follow-up appointment to establish care with medical oncology at the [facility] within next 1-2 weeks. -Follow-up appointment to establish care with a gastroenterology service in [place], [place] for possible endoscopic ultrasound with biopsy of pancreatic mass. Do not resume taking home losartan medication until you are seen by your PCP (Dr. Wagoner). We are holding this due to your recent acute kidney injury and can be resumed likely in a few days. -Medication prescriptions for pain (Percocet), nausea (oral Zofran), and constipation (MiraLAX) have been sent to your pharmacy. -Please comply with treatment plan. -Should presenting symptoms recur and/or acutely worsen, please return to the emergency department. -Thank you for the opportunity to participate in your care. DISCHARGE CONDITION: Stable TIME SPENT ON DISCHARGE: 35 minutes. Vital Signs/I&Os Vital Signs Date Time Temp Pulse Resp B/P (MAP) Pulse Ox O2 Delivery O2 Flow Rate FiO2 09/14/20 12:00 97.6 58 20 144/78 (100) 93 Room Air I&O- Last 24 Hours up to 6 AM 09/14/20 06:00 Intake Total 150 ml Output Total 350 ml Balance -200 ml Laboratory Data Labs 24H Laboratory Tests 2 09/13/20 18:29: Coronavirus (COVID-19)(PCR) NEGATIVE, Influenza Type A (RT-PCR) NEGATIVE, Influenza Type B (RT-PCR) NEGATIVE, Respiratory Syncytial Virus (PCR) NEGATIVE 09/13/20 20:57: Bedside Glucose (Misc Panel) 148H 09/13/20 23:25: Bedside Glucose (Misc Panel) 149H 09/13/20 23:35: Urine Random Creatinine 180.0, Urine Random Sodium 23, Urine Random Urea Nitrogen 964 09/14/20 05:12: Nucleated Red Blood Cells % (auto) 0.0, Anion Gap 5L, Glomerular Filtration Rate 41.9L, Calcium Level 7.8L, Magnesium Level 2.3, Total Bilirubin 1.2H, Aspartate Amino Transf (AST/SGOT) 15, Alanine Aminotransferase (ALT/SGPT) 8L, Alkaline Phosphatase 47, Total Protein 4.8L, Albumin 2.5L, Albumin/Globulin Ratio 1.1L, Triglycerides Level 289H, Total Cholesterol 109, LDL Cholesterol 42, Non-HDL Cholesterol (LDL + VLDL) 100, Total HDL Cholesterol 9L, Cholesterol/HDL Ratio 12.111H 09/14/20 06:11: Bedside Glucose (Misc Panel) 147H 09/14/20 12:28: Bedside Glucose (Misc Panel) 135H CBC/BMP Laboratory Tests 09/14/20 05:12 FSBS Laboratory Tests Test 09/13/20 20:57 09/13/20 23:25 09/14/20 06:11 09/14/20 12:28 Range/Units Bedside Glucose (Misc Panel) 148 149 147 135 80-115 MG/DL Discharge Medications Scheduled Atorvastatin Calcium (Atorvastatin Calcium) 20 Mg Tab, 20 MG PO QHS, (Reported) Bupropion Hcl (Bupropion HCl Sr) 150 Mg Tab.sr.12h, 150 MG PO QHS, (Reported) Furosemide (Furosemide) 40 Mg Tablet, 40 MG PO BID, (Reported) Insulin Glargine,Hum.rec.anlog (Toujeo Solostar) 300 Unit/1 Ml Insuln.pen, 50 UNIT SC BID, (Reported) Magnesium Oxide (Magnesium Oxide) 400 Mg Tablet, 400 MG PO DAILY, (Reported) Metformin HCl (Metformin HCl) 1,000 Mg Tab, 1,000 MG PO BID, (Reported) Ondansetron HCl (Zofran) 4 Mg Tablet, 4 MG PO TID Polyethylene Glycol 3350 (Miralax) 119 Gm Powder, 17 GRAM PO DAILY for constipation dissolve in water Propranolol HCl (Propranolol HCl ER) 80 Mg Cap.sa.24h, 80 MG PO QHS, (Reported) Spironolactone (Spironolactone) 25 Mg Tablet, 25 MG PO DAILY, (Reported) Scheduled PRN Acetaminophen (Acetaminophen) 325 Mg Tablet, 650 MG PO Q6H PRN for PAIN, (Repor errol) Hydroxyzine HCl (Hydroxyzine HCl) 25 Mg Tablet, 25 MG PO QID PRN for ITCHING, (Reported) Oxycodone HCl/Acetaminophen (Oxycodone-Acetaminophen 5-325) 1 Each Tablet, 1 TAB PO TIDP PRN for pain Pantoprazole Sodium (Pantoprazole Sodium) 40 Mg Tab, 40 MG PO DAILY PRN for ACID REFLUX, (Reported) Allergies Coded Allergies: cephalexin (Verified Allergy, Intermediate, rash, 11/04/18) clindamycin (Verified Allergy, Intermediate, rash, 09/01/20) sulfamethoxazole (Verified Allergy, Intermediate, rash, 11/04/18) trimethoprim (Verified Allergy, Intermediate, rash, 11/04/18) GME ATTESTATION GME ATTESTATION My faculty preceptor for this patient encounter was physically present during the encounter and was fully available. All aspects of the patient interview, examination, medical decision making process, and medical care plan development were reviewed and approved by the faculty preceptor. The faculty preceptor is aware and concurs with the plan as stated in the body of this note and will attest to such by his/her cosignature. ATTENDING NOTE I, Robert Pro, have independently examined this patient and performed my own physical exam, as well as reviewed the documentation and edited where necessary. I have discussed in detail with the resident / student the findings and plan of treatment as documented by the resident / student and edited their note. I agree with their findings and treatment plan and have edited their documentation. I will continue to follow the patient during this hospital stay. Time spent on discharge 35 minutes ABIDA OBANDO D.O. Sep 14, 2020 17:49 ROBERT PRO MD Sep 14, 2020 21:12
--- NOTE | 2020-09-14 20:42 | CR.PDOC ---
General Date of Consultation: Sep 14, 2020 Referring Provider: DIANA PRO MD Attending Physician: VITALIY CUMMINS MD Consultation Referring physician / PCP : Dr. Pro. Reason for consult: Recurrent pancreatitis. HPI: 69 year old female patient with IDDM, HTN, HLD< CKD II, EULALIA and recent [facility] hospitalization for acute pancreatitis now present for recurrent abdominal pain with nausea, poor oral food tolerance and hoang-umbilical area pain. Patient reports the pain is dull, constant, associated with radiation to sides and back. Patient also had atleast few episodes of vomiting and diarrhea in past. ( patient was thought to have gastroenteritis initially but due to persistent pain she came to ER). Pertinent negative GI symptoms: Patient denies hematemesis, melena or hematochezia. 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 : No blood in urine, No burning sensation of the urine ENT: No ear discharge/ pain, No dysphagia. Eyes: No photophobia. Skin: No rash Home medications: reviewed. No Plavix and No anticoagulants Medical h/o: As above. Surgical h/o: None on abdomen. Social h/o: Denies Alcohol, smoking, IVDA/ drugs. Family h/o of GI cancers Esophageal cancer in father. Prior Endoscopies: Reports having EGD and Colonoscopy in past with Dr. Lim. Prior GI evaluation: Follows with Dr. Lim. Exam: Vitals: reviewed General: Alert and oriented x 3, Mild to moderate distress from abdominal pain. HEENT: No pallor, no icterus. Normal oropharynx, NO cervical lymphadenopathy. Chest: symmetric with bilateral air entry, CVS: S1, S2 heard, Abdomen: non-distended, soft, mild tenderness in upper abdominal area on deep palpation. no rigidity or guarding, no palpable masses, normal bowel sounds heard. Rectal exam: Patient refused / Deferred at this time. 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 Moves all extremities Skin: no rash. Labs: reviewed. Imaging: reviewed. Impression: -- Recurrent episodes of pancreatitis in patient with no gallstones, normal lipid profile and MRI pancreatic protocol done showing possible pancreatic mass and lymphadenopathy, no mention of the involvement of the celiac axis DDxlikely primary pancreatic malignancy vs rule out other causes. Recommendations: -- Patient educated about the prior test results and all questions answered. -- Oral hydration as tolerated. -- Resume oral diet as tolerated. -- Pain management as required. -- If opioids are given for pain management, to consider miralax or Colace to prevent constipation. -- Patient is educated about the further work up including EUS with FNA for confirmation of the diagnosis. As EUS Is not available in [facility], will refer the patient to [facility] for the same as outpatient. Patient is educated about the importance of the same. -- Patient does not want to travel long distance and want to follow up in [facility] after the above. -- Plan of care educated to patient and patient verbalized understanding and agreed. All questions answered. -- Recommendations communicated to primary team. Patient to follow with PCP upon discharge for routine medical care. Vital Signs/I&O Vital Signs Date Time Temp Pulse Resp B/P (MAP) Pulse Ox O2 Delivery O2 Flow Rate FiO2 09/14/20 12:00 97.6 58 20 144/78 (100) 93 Room Air I&O- Last 24 Hours up to 6 AM 09/14/20 06:00 Intake Total 150 ml Output Total 350 ml Balance -200 ml Laboratory Data Labs 24H Laboratory Tests 2 09/13/20 20:57: Bedside Glucose (Misc Panel) 148H 09/13/20 23:25: Bedside Glucose (Misc Panel) 149H 09/13/20 23:35: Urine Random Creatinine 180.0, Urine Random Sodium 23, Urine Random Urea Nitrogen 964 09/14/20 05:12: Nucleated Red Blood Cells % (auto) 0.0, Anion Gap 5L, Glomerular Filtration Rate 41.9L, Calcium Level 7.8L, Magnesium Level 2.3, Total Bilirubin 1.2H, Aspartate Amino Transf (AST/SGOT) 15, Alanine Aminotransferase (ALT/SGPT) 8L, Alkaline Phosphatase 47, Total Protein 4.8L, Albumin 2.5L, Albumin/Globulin Ratio 1.1L, Triglycerides Level 289H, Total Cholesterol 109, LDL Cholesterol 42, Non-HDL Ch olesterol (LDL + VLDL) 100, Total HDL Cholesterol 9L, Cholesterol/HDL Ratio 12.111H 09/14/20 06:11: Bedside Glucose (Misc Panel) 147H 09/14/20 12:28: Bedside Glucose (Misc Panel) 135H CBC/BMP Laboratory Tests 09/14/20 05:12 Allergies Coded Allergies: cephalexin (Verified Allergy, Intermediate, rash, 11/04/18) clindamycin (Verified Allergy, Intermediate, rash, 09/01/20) sulfamethoxazole (Verified Allergy, Intermediate, rash, 11/04/18) trimethoprim (Verified Allergy, Intermediate, rash, 11/04/18) Home Medications Scheduled Atorvastatin Calcium (Atorvastatin Calcium) 20 Mg Tab, 20 MG PO QHS, (Reported) Bupropion Hcl (Bupropion HCl Sr) 150 Mg Tab.sr.12h, 150 MG PO QHS, (Reported) Furosemide (Furosemide) 40 Mg Tablet, 40 MG PO BID, (Reported) Insulin Glargine,Hum.rec.anlog (Toujeo Solostar) 300 Unit/1 Ml Insuln.pen, 50 UNIT SC BID, (Reported) Magnesium Oxide (Magnesium Oxide) 400 Mg Tablet, 400 MG PO DAILY, (Reported) Metformin HCl (Metformin HCl) 1,000 Mg Tab, 1,000 MG PO BID, (Reported) Ondansetron HCl (Zofran) 4 Mg Tablet, 4 MG PO TID for 21 Days, #63 Polyethylene Glycol 3350 (Miralax) 119 Gm Powder, 17 GRAM PO DAILY for con stipation for 30 Days, #255 dissolve in water Propranolol HCl (Propranolol HCl ER) 80 Mg Cap.sa.24h, 80 MG PO QHS, (Reported) Spironolactone (Spironolactone) 25 Mg Tablet, 25 MG PO DAILY, (Reported) Scheduled PRN Acetaminophen (Acetaminophen) 325 Mg Tablet, 650 MG PO Q6H PRN for PAIN, (Reported) Hydroxyzine HCl (Hydroxyzine HCl) 25 Mg Tablet, 25 MG PO QID PRN for ITCHING, (Reported) Oxycodone HCl/Acetaminophen (Oxycodone-Acetaminophen 5-325) 1 Each Tablet, 1 TAB PO TIDP PRN for pain for 14 Days, #42 Pantoprazole Sodium (Pantoprazole Sodium) 40 Mg Tab, 40 MG PO DAILY PRN for ACID REFLUX, (Reported) VITALIY CUMMINS MD Sep 14, 2020 20:42
--- NOTE | 2020-09-14 20:48 | ECGEPIP ---
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
== END 2020-09-14 18:00 | disposition home or self-care (01) | DRG 435 ==
LOC: M ED 12:41 → M ED INP 18:48 → ENRESERV 19:34 → M PCU 20:03
PROVIDERS: ADMIT Internal Medicine; ATTEND Internal Medicine
DX: C25.1 Malignant neoplasm of body of pancreas (principal); K85.00 Idiopathic acute pancreatitis without necrosis or infection; N17.9 Acute kidney failure, unspecified; J90 Pleural effusion, not elsewhere classified; E11.22 Type 2 diabetes mellitus with diabetic chronic kidney disease; I12.9 Hypertensive chronic kidney disease with stage 1 through stage 4 chronic kidney disease, or unspecified chronic kidney disease; N18.30 Chronic kidney disease, stage 3 unspecified; E78.5 Hyperlipidemia, unspecified; G47.33 Obstructive sleep apnea (adult) (pediatric); R60.0 Localized edema; F32.9 Major depressive disorder, single episode, unspecified; F41.9 Anxiety disorder, unspecified; K21.9 Gastro-esophageal reflux disease without esophagitis; G47.30 Sleep apnea, unspecified; M10.9 Gout, unspecified; M19.90 Unspecified osteoarthritis, unspecified site; K44.9 Diaphragmatic hernia without obstruction or gangrene; M50.30 Other cervical disc degeneration, unspecified cervical region; Z86.010 Personal history of colon polyps; Z87.891 Personal history of nicotine dependence; I87.2 Venous insufficiency (chronic) (peripheral); Z20.822 Contact with and (suspected) exposure to COVID-19; Z79.84 Long term (current) use of oral hypoglycemic drugs; Z79.899 Other long term (current) drug therapy; Z88.1 Allergy status to other antibiotic agents; Z88.2 Allergy status to sulfonamides; Z88.8 Allergy status to other drugs, medicaments and biological substances

== ENCOUNTER → 2020-09-15 | Outpatient (REF) | payer MEDICARE ==
[~2020-09-15] MED LIST changes: +MIRA3350 PO; +ZOFR4TAB16 PO
== END ==
LOC: M LAB REF 16:13
PROVIDERS: ATTEND Internal Medicine
DX: K85.90 Acute pancreatitis without necrosis or infection, unspecified (principal)